=== PATIENT | male | born 1945 | race Two or more races ===

== ENCOUNTER 2017-07-29 09:42 | Inpatient (IN) | payer MEDICARE, MEDICAID ==
[2017-07-28 11:37] LABS: PARTIAL THROMBOPLASTIN TIME 30 SECONDS (22-32); PROTHROMBIN TIME 10.5 SECONDS (9.0-12.0)
[2017-07-28 11:38] LABS: ALBUMIN 3.8 G/DL (3.4-5.0); ANION GAP 12 (8-16); BLOOD UREA NITROGEN 25 MG/DL (7-18); BUN/CREATININE RATIO 20.7 (5.4-32.0); CALCIUM 8.5 MG/DL (8.5-10.1); CHLORIDE 103 MMOL/L (99-107); CREATININE 1.21 MG/DL (0.60-1.10); GLUCOSE 204 MG/DL (70-104); POTASSIUM 4.4 MMOL/L (3.5-5.1); SODIUM 137 MMOL/L (135-145); TOTAL CARBON DIOXIDE 22.5 MMOL/L (24-32); eGFR 59 ML/MIN
[2017-07-28 11:45] LABS: BASOPHILS % (AUTO) 0.4 % (0-1); EOSINOPHILS # (AUTO) 0.3 X10'3 (0-0.9); EOSINOPHILS % (AUTO) 3.6 % (0-6); HEMATOCRIT 39.3 % (42.0-52.0); HEMOGLOBIN 13.4 g/dl (14.0-17.9); LYMPHOCYTES # (AUTO) 2.3 X10'3 (1.1-4.8); LYMPHOCYTES % (AUTO) 30.9 % (21-51); MEAN CORPUSCULAR HEMOGLOBIN 32.3 PG (27.0-31.0); MEAN CORPUSCULAR HGB CONC 34.2 % (33.0-36.5); MEAN CORPUSCULAR VOLUME 94.6 FL (78-98); MEAN PLATELET VOLUME 7.6 FL (7.4-10.4); MONOCYTES # (AUTO) 0.5 X10'3 (0-0.9); MONOCYTES % (AUTO) 6.8 % (2-12); NEUTROPHILS # (AUTO) 4.4 X10'3 (1.8-7.7); NEUTROPHILS % (AUTO) 58.3 % (42-75); PLATELET COUNT 220 X10'3 (140-440); RED BLOOD COUNT 4.15 X10'6 (4.70-6.10); RED CELL DISTRIBUTION WIDTH 14.8 % (11.5-14.5); WHITE BLOOD COUNT 7.5 X10'3 (4.5-11.0)
[2017-07-29] VITALS (12 sets, daily range): BP systolic 112–200; BP diastolic 58–94
[~2017-07-29] VITALS: Ht 172.7 cm; Wt 95.0 kg
[2017-07-29] MEDS ORDERED: sod bicarbonate 150mEq in D5W 1,150 ML IV ONE (10:10)
[2017-07-29] MEDS ORDERED: LORazepam 0.5 MG tablet PO PRN (10:10)
[2017-07-29] MEDS ORDERED: diphenhydrAMINE 25mg capsule PO PRN (10:10)
[2017-07-29] MEDS ORDERED: NO HOME MEDS (10:26)
[2017-07-29] MEDS: normal saline 1000ml 1,000 ML IV SCH ×2 (11:06→14:24)
[2017-07-29] MEDS ORDERED: nitroGLYCERIN-Tridil 50MG/D5W 250 ML IV ONE (11:06)
[2017-07-29] MEDS ORDERED: heparin 1,000unit/ml 10ml vial 10 ML ONE (11:07)
[2017-07-29] MEDS ORDERED: iohexol 350MG/ML 100ml bottle IV ONE ×2 (11:07→12:31)
[2017-07-29] MEDS ORDERED: LIDOcaine 1%/PF (10mg/ml) 5ml vial ONE (11:07)
[2017-07-29] MEDS ORDERED: iohexol 350 MG/ML 50ML vial IV ONE ×4 (11:07→13:26)
[2017-07-29] MEDS ORDERED: midazolam 2 mg/2 ml injection ONE (11:39)
[2017-07-29] MEDS ORDERED: fentaNYL/PF 50MCG/1 ML 2ML syringe ONE (11:39)
[2017-07-29] MEDS ORDERED: clopidogrel 300mg tablet ONE (13:59)
[2017-07-29] MEDS ORDERED: nitroGLYCERIN-Tridil 50MG/D5W 250 ML IV PRN (14:35)
[2017-07-29] MEDS ORDERED: hydrALAZINE 20mg/ml inj. IV PRN (14:35)
[2017-07-29] MEDS ORDERED: aspirin 325mg tablet PO ONE (15:10)
[2017-07-29] MEDS ORDERED: proCHLORperazine 10 MG/2 ml inj IV PRN (15:15)
[2017-07-29] MEDS ORDERED: OXAZEpam 15mg capsule PO PRN (15:15)
[2017-07-29] MEDS ORDERED: acetaminophen 325mg tablet PO PRN (15:15)
[2017-07-29] MEDS ORDERED: cyclobenzaprine 10mg tablet PO PRN (15:15)
[2017-07-29] MEDS ORDERED: magnesium hydroxide 30ml (MOM) UD suspension PO PRN (15:15)
[2017-07-29] MEDS ORDERED: heparin 10,000 units/1 ML INJ IV PRN (15:30)
[2017-07-29] MEDS: acetylcysteine 200 MG/ml 4ml vial PO SCH ×2 (18:00→23:28)
[2017-07-29] MEDS: atorvastatin 20mg tablet PO SCH (20:28)
[2017-07-29] MEDS: docusate sod 100mg capsule PO SCH (20:29)
[2017-07-29 20:46] LABS: INR 1.1 INR; PROTHROMBIN TIME 11.8 SECONDS (9.0-12.0)
[2017-07-29 21:05] LABS: PARTIAL THROMBOPLASTIN TIME 144 SECONDS (22-32)
[2017-07-29] MEDS ORDERED: sodium bicarbonate (8.4%) 1 mEq/ml syringe ONE (22:56)
[2017-07-29] MEDS: sod bicarbonate 150mEq in D5W 1,150 ML IV SCH (23:13)
[2017-07-30] VITALS (22 sets, daily range): BP systolic 92–178; BP diastolic 54–95
[2017-07-30 01:48] LABS: BASOPHILS % (AUTO) 0.5 % (0-1); EOSINOPHILS # (AUTO) 0.3 X10'3 (0-0.9); EOSINOPHILS % (AUTO) 4.1 % (0-6); HEMATOCRIT 33.3 % (42.0-52.0); HEMOGLOBIN 11.4 g/dl (14.0-17.9); LYMPHOCYTES # (AUTO) 1.8 X10'3 (1.1-4.8); LYMPHOCYTES % (AUTO) 27.8 % (21-51); MEAN CORPUSCULAR HEMOGLOBIN 32.2 PG (27.0-31.0); MEAN CORPUSCULAR HGB CONC 34.1 % (33.0-36.5); MEAN CORPUSCULAR VOLUME 94.5 FL (78-98); MEAN PLATELET VOLUME 7.6 FL (7.4-10.4); MONOCYTES # (AUTO) 0.7 X10'3 (0-0.9); MONOCYTES % (AUTO) 11.1 % (2-12); NEUTROPHILS # (AUTO) 3.6 X10'3 (1.8-7.7); NEUTROPHILS % (AUTO) 56.5 % (42-75); PLATELET COUNT 197 X10'3 (140-440); RED BLOOD COUNT 3.52 X10'6 (4.70-6.10); RED CELL DISTRIBUTION WIDTH 14.6 % (11.5-14.5); WHITE BLOOD COUNT 6.4 X10'3 (4.5-11.0)
[2017-07-30 02:02] LABS: ANION GAP 11 (8-16); BLOOD UREA NITROGEN 19 MG/DL (7-18); BUN/CREATININE RATIO 15.8 (5.4-32.0); CHLORIDE 100 MMOL/L (99-107); CHOL/HDL RATIO 1.8 (0.00-4.99); CHOLESTEROL 101 MG/DL (0-200); GLUCOSE 250 MG/DL (70-104); HDL CHOLESTEROL 55 MG/DL (35-60); LDL CHOLESTEROL 48 MG/DL (50-100); POTASSIUM 3.6 MMOL/L (3.5-5.1); SODIUM 139 MMOL/L (135-145); TOTAL CARBON DIOXIDE 27.6 MMOL/L (24-32); TRIGLYCERIDES 79 MG/DL (20-135); eGFR 60 ML/MIN
[2017-07-30] MEDS ORDERED: LIDOcaine 1%/PF (10mg/ml) 5ml vial ONE (07:22)
[2017-07-30] MEDS ORDERED: heparin 1,000unit/ml 10ml vial 10 ML ONE (07:22)
[2017-07-30] MEDS ORDERED: midazolam 2 mg/2 ml injection ONE (07:22)
[2017-07-30] MEDS ORDERED: iohexol 350 MG/1 ML 200ml bottle ONE (07:22)
[2017-07-30] MEDS ORDERED: fentaNYL/PF 50MCG/1 ML 2ML syringe ONE (07:22)
[2017-07-30] MEDS ORDERED: nitroGLYCERIN-Tridil 50MG/D5W 250 ML IV ONE (07:23)
[2017-07-30] MEDS ORDERED: atropine 0.1mg/ml 10ml syringe ONE (07:56)
[2017-07-30] MEDS ORDERED: clopidogrel 300mg tablet ONE (08:47)
[2017-07-30] MEDS: acetylcysteine 200 MG/ml 4ml vial PO SCH ×2 (10:11→20:22)
[2017-07-30] MEDS: clopidogrel 75mg tablet PO SCH (10:11)
[2017-07-30] MEDS: aspirin 325mg tablet PO SCH (10:11)
[2017-07-30] MEDS: docusate sod 100mg capsule PO SCH ×2 (10:11→20:22)
[2017-07-30] MEDS: sod bicarbonate 150mEq in D5W 1,150 ML IV SCH (10:40)
[2017-07-30] MEDS: atorvastatin 20mg tablet PO SCH (20:22)
[2017-07-31] VITALS (12 sets, daily range): BP systolic 75–158; BP diastolic 43–80
[2017-07-31] MEDS: docusate sod 100mg capsule PO SCH (08:00)
[2017-07-31] MEDS: aspirin 325mg tablet PO SCH (08:39)
[2017-07-31] MEDS ORDERED: CLOP75TA35 PO (08:39)
[2017-07-31] MEDS: acetylcysteine 200 MG/ml 4ml vial PO SCH (08:39)
[2017-07-31] MEDS ORDERED: LISI10TA4 PO (08:39)
[2017-07-31] MEDS ORDERED: ASPI-1 PO (08:39)
[2017-07-31] MEDS ORDERED: ATOR20TA66 PO (08:39)
[2017-07-31] MEDS ORDERED: METO25TA6 PO ×2 (08:39→09:41)
[2017-07-31] MEDS: clopidogrel 75mg tablet PO SCH (08:40)
[2017-07-31] MEDS ORDERED: CLOPIDOGREL BISULFATE 300MG TAB PO ONE (08:50)
[2017-07-31] MEDS ORDERED: aspirin 325mg tablet PO ONE (08:50)
[2017-07-31] MEDS ORDERED: magnesium hydroxide 30ml (MOM) UD suspension PO PRN (08:55)
[2017-07-31] MEDS ORDERED: cyclobenzaprine 10mg tablet PO PRN (08:55)
[2017-07-31] MEDS ORDERED: acetaminophen 325mg tablet PO PRN (08:55)
[2017-07-31] MEDS ORDERED: OXAZEpam 15mg capsule PO PRN (08:55)
[2017-07-31] MEDS ORDERED: HYDROcodone/acetaminophen 10/325mg tab PO PRN ×2 (08:55)
[2017-07-31] MEDS ORDERED: clopidogrel 75mg tablet PO SCH (09:00)
[2017-07-31] MEDS ORDERED: metoprolol tartrate 25mg tablet PO SCH (09:00)
[2017-07-31] MEDS ORDERED: lisinopril 5mg tablet PO SCH (09:00)
[2017-07-31] MEDS ORDERED: sodium bicarbonate (8.4%) inj. 150 MEQ in sodium chloride 0.45% 1,000 ML IV SCH (09:30)
[2017-07-31] MEDS ORDERED: docusate sod 100mg capsule PO SCH (20:00)
[2017-08-01] MEDS ORDERED: aspirin 325mg tablet PO SCH (08:30)
== END 2017-07-31 11:39 | disposition home or self-care (01) | DRG 247 ==
LOC: SSTAY O 09:42 → CICU 2S 14:00
PROVIDERS: ADMIT Internal Medicine Cardiovascular Disease; ATTEND Internal Medicine Cardiovascular Disease
PROC: 4A023N7 Measurement of Cardiac Sampling and Pressure, Left Heart, Percutaneous Approach (ICD-10-PCS; 2017-07-29)
PROC: B2111ZZ Fluoroscopy of Multiple Coronary Arteries using Low Osmolar Contrast (ICD-10-PCS; 2017-07-29)
PROC: B2151ZZ Fluoroscopy of Left Heart using Low Osmolar Contrast (ICD-10-PCS; 2017-07-29)
PROC: 027135Z Dilation of Coronary Artery, Two Arteries with Two Drug-eluting Intraluminal Devices, Percutaneous Approach (ICD-10-PCS; 2017-07-29)
PROC: 027034Z Dilation of Coronary Artery, One Artery with Drug-eluting Intraluminal Device, Percutaneous Approach (ICD-10-PCS; principal; 2017-07-30)
DX: I25.10 Atherosclerotic heart disease of native coronary artery without angina pectoris (principal); E11.22 Type 2 diabetes mellitus with diabetic chronic kidney disease; I45.10 Unspecified right bundle-branch block; R94.39 Abnormal result of other cardiovascular function study; N18.9 Chronic kidney disease, unspecified; E78.5 Hyperlipidemia, unspecified; I12.9 Hypertensive chronic kidney disease with stage 1 through stage 4 chronic kidney disease, or unspecified chronic kidney disease; K21.9 Gastro-esophageal reflux disease without esophagitis; E55.9 Vitamin D deficiency, unspecified; I65.29 Occlusion and stenosis of unspecified carotid artery; Z60.2 Problems related to living alone; Z89.429 Acquired absence of other toe(s), unspecified side; Z79.899 Other long term (current) drug therapy
CPT/HCPCS: 93458; C9600; C9601; 36415; 80048; 80061; 85025; 85347; 85610; 85730; 93005; 99152; 99153; A4315; A4620; A6213; A6257; A6402; A6449; C1725; C1760; C1769; C1874; J0461; J1644; J2001; J2250; J3010; J3490; J7030; J7070; Q0163; Q9967

== ENCOUNTER 2019-05-16 15:54 | Inpatient (IN) | payer MEDICARE, MEDICAID, OTHER ==
[~2019-05-16] VITALS: Ht 172.7 cm; Wt 108.7 kg
[~2019-05-16 15:54] MED LIST: ASPI-1 PO; ATOR20TA66 PO; CLOP75TA35 PO; METO25TA6 PO; NO HOME MEDS; etomidate 2mg/ml inj. ONE; rocuronium bromide 100mg/10ml (10mg/ml) injection IV ONE
[2019-05-16] MEDS ORDERED: heparin 10,000 units/1 ML INJ IV PRN (16:10)
[2019-05-16 16:16] LABS: BASOPHILS # (AUTO) 0.1 X10'3 (0-0.2); BASOPHILS % (AUTO) 0.5 % (0-1); EOSINOPHILS # (AUTO) 0.2 X10'3 (0-0.9); EOSINOPHILS % (AUTO) 2.6 % (0-6); HEMATOCRIT 34.4 % (42.0-52.0); HEMOGLOBIN 11.6 g/dl (14.0-17.9); LYMPHOCYTES # (AUTO) 1.6 X10'3 (1.1-4.8); LYMPHOCYTES % (AUTO) 17.4 % (21-51); MEAN CORPUSCULAR HEMOGLOBIN 31.3 PG (27.0-31.0); MEAN CORPUSCULAR HGB CONC 33.8 g/dL (33.0-36.5); MEAN CORPUSCULAR VOLUME 92.4 FL (78-98); MEAN PLATELET VOLUME 7.5 FL (7.4-10.4); MONOCYTES # (AUTO) 1.1 X10'3 (0-0.9); MONOCYTES % (AUTO) 12.2 % (2-12); NEUTROPHILS # (AUTO) 6.3 X10'3 (1.8-7.7); NEUTROPHILS % (AUTO) 67.3 % (42-75); PLATELET COUNT 252 X10'3 (140-440); RED BLOOD COUNT 3.72 X10'6 (4.70-6.10); RED CELL DISTRIBUTION WIDTH 13.5 % (11.5-14.5); WHITE BLOOD COUNT 9.4 X10'3 (4.5-11.0)
[2019-05-16] MEDS: heparin 25,000 UNIT/250ml bag 250 ML IV SCH (16:22)
[2019-05-16 16:31] LABS: ALANINE AMINOTRANSFERASE 22 U/L (12-78); ALBUMIN 3.2 G/DL (3.4-5.0); ALBUMIN/GLOBULIN RATIO 0.8 (1.1-1.5); ALKALINE PHOSPHATASE 118 IU/L (46-116); ANION GAP 10 (8-16); ASPARTATE AMINO TRANSFERASE 35 U/L (10-37); BILIRUBIN,TOTAL 0.9 MG/DL (0.1-1.0); BLOOD UREA NITROGEN 33 MG/DL (7-18); BUN/CREATININE RATIO 17.6 (5.4-32.0); CALCIUM 8.3 MG/DL (8.5-10.1); CHLORIDE 99 MMOL/L (99-107); CREATININE 1.88 MG/DL (0.60-1.10); GLUCOSE 149 MG/DL (70-104); POTASSIUM 3.6 MMOL/L (3.5-5.1); SODIUM 132 MMOL/L (135-145); TOTAL CARBON DIOXIDE 22.9 MMOL/L (24-32); TOTAL PROTEIN 7.4 G/DL (6.4-8.2); eGFR 35 ML/MIN
[2019-05-16] MEDS ORDERED: CLOP75TA33 PO (16:31)
[2019-05-16] MEDS ORDERED: LINA5TAB4 PO (16:31)
[2019-05-16] MEDS ORDERED: GLIP10TA11 PO (16:31)
[2019-05-16] MEDS ORDERED: ASPI-611 PO (16:31)
[2019-05-16] MEDS ORDERED: ATOR20TA66 PO (16:31)
[2019-05-16] MEDS ORDERED: HYDR-4384 PO (16:31)
[2019-05-16] MEDS ORDERED: ENAL2.5T PO (16:31)
[2019-05-16 16:39] LABS: MAGNESIUM 1.7 MG/DL (1.5-2.4)
[2019-05-16] MEDS ORDERED: ondansetron/PF 4mg/2ml inj IV PRN (16:45)
[2019-05-16] MEDS ORDERED: magnesium hydroxide 30ml (MOM) UD suspension PO PRN (16:45)
[2019-05-16] MEDS ORDERED: acetaminophen 325mg tablet PO PRN ×2 (16:45)
[2019-05-16] MEDS ORDERED: dextrose 50%-water 50ml dispensing syringe IV PRN ×2 (16:45)
[2019-05-16] MEDS ORDERED: nitroGLYCERIN 0.4mg SUBLingual tab SL PRN (16:45)
[2019-05-16] MEDS ORDERED: mag hydrox/Alum hydrox/simeth 30ml oral suspension PO PRN (16:45)
[2019-05-16] MEDS ORDERED: insulin Lispro (HumaLOG) vial - multi-dose SQ SCH (16:45)
[2019-05-16] MEDS ORDERED: dextrose ORAL solution 15 GM/59 ML bottle PO PRN ×2 (16:45)
[2019-05-16] MEDS ORDERED: HYDROcodone/acetaminophen 5mg/325mg tablet PO PRN (16:45)
[2019-05-16] MEDS ORDERED: glucagon, human recombinant 1mg kit SUBCUT PRN (16:45)
[2019-05-16] MEDS ORDERED: MESSAGE TO PHARMACY PO ONE (16:45)
--- NOTE | 2019-05-16 17:00 | NUR ---
late entry; pt was in ED and Dr. Pompa was asking about a next of kin or someone to notify if something were to happen to him. pt state "I really do not want her told because she get very upset and i don't want that." he refuse to even give a name to the doctor.
[2019-05-16] MEDS ORDERED: acetylcysteine 200 MG/ml 4ml vial PO ONE (17:15)
[2019-05-16] MEDS ORDERED: sodium bicarbonate (8.4%) inj. 150 MEQ in sodium chloride 0.45% 1,000 ML IV SCH (17:15)
[2019-05-16] MEDS ORDERED: sodium bicarbonate (8.4%) inj. 75 MEQ in dextrose 5% water 500ml 500 ML IV SCH (17:22)
[2019-05-16] MEDS ORDERED: fentaNYL/PF 50MCG/1 ML 2ML syringe ONE (17:43)
[2019-05-16] MEDS ORDERED: midazolam 2 mg/2 ml injection ONE ×2 (17:43→21:40)
[2019-05-16 17:44] LABS: PARTIAL THROMBOPLASTIN TIME 65 SECONDS (22-32)
[2019-05-16] MEDS ORDERED: LIDOcaine 1% (10mg/ml)w/preservative injection 20ml MDV ONE (17:44)
[2019-05-16] MEDS ORDERED: iohexol 350 MG/1 ML 200ml bottle ONE (17:44)
[2019-05-16] MEDS ORDERED: iohexol 350 MG/ML 50ML vial IV ONE (17:44)
[2019-05-16] MEDS ORDERED: nitroGLYCERIN-Tridil 50MG/D5W 250 ML IV ONE (17:44)
[2019-05-16] MEDS ORDERED: heparin 1,000unit/ml 10ml vial 10 ML ONE (17:44)
[2019-05-16 17:58] LABS: HEMOGLOBIN A1C 11.6 % (4.5-6.2)
[2019-05-16] MEDS ORDERED: DOPamine 400mg/D5W 250ml 250 ML IV ONE (18:42)
[2019-05-16] MEDS ORDERED: atropine 0.1mg/ml 10ml syringe ONE (18:49)
[2019-05-16] MEDS ORDERED: DOBUTamine-DoBUTrex 500mg/D5W 250 ML IV ONE (18:50)
[2019-05-16] MEDS ORDERED: amiodarone 50MG/ML inj IV ONE (19:03)
[2019-05-16] MEDS ORDERED: albuterol 2.5 MG/3 ML nebule NEB PRN (19:55)
[2019-05-16] MEDS: carVEDilol 3.125mg tablet PO SCH (20:00)
--- NOTE | 2019-05-16 20:40 | NUR ---
I have received report and pt from Cath-Lab, Pt is on an IABP 1:2, IABP is to the rt groin without hematoma, pt placed on monitor, pts rit pupil is blown and nonreactive, left is pinpoint. pt does not respond to verbal stimuli or tactical stimuli, dopamine and dobutamine drip in place for cardiac support via CVL, Lira catheter placed per MD orders as well as an OG, pt tolerated both procedures well, no difficulties noted. Spoke to Lacy Marr SOFTWARE SYSTEMS ANALYST regarding pupil response and size, new orders to take pt for a CT of his head, pt placed on transport monitor, taken to CT with the assistance or 2 respitory therapist, the charge nurse, hemodialysis lab technician and myself. Ambu bag used during transport. Pt returned to room without difficulties, pt placed back on monitor, hypothermic protocol in place. Pt has intermittent stiffening of the legs and arm twitching, versed drip started, fentanyl drip in place for pain control, heparin drip in place per md orders Troponin 3.17 Lacy Marr notified no new orders at this time
[2019-05-16 20:45] VITALS: BP 97/76
[2019-05-16] MEDS ORDERED: aspirin 325mg tablet PO ONE (20:45)
[2019-05-16] MEDS ORDERED: aspirin 81mg tab.chew NG ONE (20:50)
[2019-05-16] MEDS ORDERED: clopidogrel 75mg tablet NG ONE (20:50)
[2019-05-16 21:00] VITALS: BP 94/43
[2019-05-16] MEDS: lisinopril 2.5mg tablet PO SCH (21:00)
[2019-05-16] MEDS: insulin glargine (Lantus) pen - multi-dose SQ SCH (21:00)
[2019-05-16 21:11] LABS: ABG BASE EXCESS -10.3 mmol/L (-2.0-3.0); ABG HCO3 16.8 mmol/L (22.0-26.0); ABG OXYGEN SATURATION 94.6 % (95-98); ABG PH (T) 7.229 (7.350-7.450); ABG PO2 (T) 82.1 mmHg (83-108); ALLEN'S TEST Positive; FCOHb 0.3 % (0.5-1.5); FMetHb 0.3 % (0.3-1.12); MINUTE VOLUME 8 L/min; PATIENT TEMPERATURE 36.6; PEEP 5 cm H2O; RESPIRATORY RATE 16 b/min; RESPIRATORY RATE (OBSERVED) 16 b/min; TIDAL VOLUME 450 mL; TOTAL HEMOGLOBIN 12.8 G/dl (14.0-17.9)
[2019-05-16 21:30] VITALS: BP 102/86
[2019-05-16] MEDS: DOPamine 400MG/D5W 250ML CRITICAL CARE IV SCH (21:31)
[2019-05-16] MEDS: DOBUTamine 2000 MCG/250ML BAG IV SCH (21:31)
[2019-05-16 22:15] VITALS: BP 92/46
[2019-05-16] MEDS ORDERED: magnesium 4gm in 100ml NS 100 ML IV PRN (22:30)
[2019-05-16] MEDS ORDERED: sodium phosphate inj. 30 MMOL in dextrose 5%-water 250 ML IV PRN (22:30)
[2019-05-16] MEDS ORDERED: potassium Cl 20mEq/100mL bag 100 ML IV PRN (22:30)
[2019-05-16] MEDS ORDERED: sodium phosphate inj. 15 MMOL in dextrose 5%-water 150 ML IV PRN (22:30)
[2019-05-16] MEDS ORDERED: magnesium 2GM in 50ml NS 50 ML IV PRN (22:30)
[2019-05-16] MEDS: midazolam 100mg in NS 100ml 100 ML IV PRN (22:48)
[2019-05-16] MEDS: FENTANYL-0.9 % NACL/PF 100 ML IV PRN (22:49)
[2019-05-16 23:00] VITALS: BP 90/46
[2019-05-16 23:22] LABS: BASOPHILS # (AUTO) 0.1 X10'3 (0-0.2); BASOPHILS % (AUTO) 0.6 % (0-1); EOSINOPHILS # (AUTO) 0.1 X10'3 (0-0.9); EOSINOPHILS % (AUTO) 0.3 % (0-6); HEMATOCRIT 33.1 % (42.0-52.0); HEMOGLOBIN 11.2 g/dl (14.0-17.9); LYMPHOCYTES # (AUTO) 1.2 X10'3 (1.1-4.8); MEAN CORPUSCULAR HEMOGLOBIN 31.3 PG (27.0-31.0); MEAN CORPUSCULAR HGB CONC 33.9 g/dL (33.0-36.5); MEAN CORPUSCULAR VOLUME 92.2 FL (78-98); MEAN PLATELET VOLUME 7.8 FL (7.4-10.4); MONOCYTES # (AUTO) 1.4 X10'3 (0-0.9); MONOCYTES % (AUTO) 9.2 % (2-12); NEUTROPHILS # (AUTO) 12.1 X10'3 (1.8-7.7); NEUTROPHILS % (AUTO) 81.9 % (42-75); PLATELET COUNT 249 X10'3 (140-440); RED BLOOD COUNT 3.59 X10'6 (4.70-6.10); RED CELL DISTRIBUTION WIDTH 13.6 % (11.5-14.5); WHITE BLOOD COUNT 14.7 X10'3 (4.5-11.0)
[2019-05-16 23:35] LABS: ALANINE AMINOTRANSFERASE 32 U/L (12-78); ALBUMIN 2.7 G/DL (3.4-5.0); ALBUMIN/GLOBULIN RATIO 0.7 (1.1-1.5); ALKALINE PHOSPHATASE 112 IU/L (46-116); ANION GAP 13 (8-16); ASPARTATE AMINO TRANSFERASE 53 U/L (10-37); BILIRUBIN,TOTAL 1.2 MG/DL (0.1-1.0); BLOOD UREA NITROGEN 31 MG/DL (7-18); BUN/CREATININE RATIO 18.3 (5.4-32.0); CALCIUM 7.6 MG/DL (8.5-10.1); CHLORIDE 98 MMOL/L (99-107); CREATININE 1.69 MG/DL (0.60-1.10); GLUCOSE 317 MG/DL (70-104); POTASSIUM 4.2 MMOL/L (3.5-5.1); SODIUM 131 MMOL/L (135-145); TOTAL CARBON DIOXIDE 20.3 MMOL/L (24-32); TOTAL PROTEIN 6.6 G/DL (6.4-8.2); eGFR 40 ML/MIN
[2019-05-16 23:39] LABS: MAGNESIUM 1.6 MG/DL (1.5-2.4); PHOSPHORUS 4.4 MG/DL (2.3-4.5)
[2019-05-16 23:40] LABS: TROPONIN I 3.17 NG/ML (0.0-0.05)
[2019-05-16] MEDS: ipratropium/albuterol 3ml nebule NEB SCH (23:57)
[2019-05-17] VITALS (24 sets, daily range): BP systolic 79–98; BP diastolic 40–68
[2019-05-17] MEDS: DOPamine 400MG/D5W 250ML CRITICAL CARE IV SCH (00:31)
[2019-05-17 02:59] LABS: BASOPHILS % (AUTO) 0.2 % (0-1); EOSINOPHILS % (AUTO) 0.1 % (0-6); HEMATOCRIT 32.4 % (42.0-52.0); HEMOGLOBIN 10.9 g/dl (14.0-17.9); LYMPHOCYTES # (AUTO) 0.9 X10'3 (1.1-4.8); LYMPHOCYTES % (AUTO) 6.1 % (21-51); MEAN CORPUSCULAR HEMOGLOBIN 31.3 PG (27.0-31.0); MEAN CORPUSCULAR HGB CONC 33.7 g/dL (33.0-36.5); MEAN PLATELET VOLUME 7.7 FL (7.4-10.4); MONOCYTES # (AUTO) 1.4 X10'3 (0-0.9); MONOCYTES % (AUTO) 9.3 % (2-12); NEUTROPHILS # (AUTO) 13.1 X10'3 (1.8-7.7); NEUTROPHILS % (AUTO) 84.3 % (42-75); PLATELET COUNT 218 X10'3 (140-440); RED BLOOD COUNT 3.48 X10'6 (4.70-6.10); RED CELL DISTRIBUTION WIDTH 13.2 % (11.5-14.5); WHITE BLOOD COUNT 15.6 X10'3 (4.5-11.0)
[2019-05-17 03:06] LABS: ALANINE AMINOTRANSFERASE 29 U/L (12-78); ALBUMIN 2.5 G/DL (3.4-5.0); ALBUMIN/GLOBULIN RATIO 0.7 (1.1-1.5); ALKALINE PHOSPHATASE 102 IU/L (46-116); ANION GAP 11 (8-16); ASPARTATE AMINO TRANSFERASE 64 U/L (10-37); BILIRUBIN,TOTAL 1.3 MG/DL (0.1-1.0); BLOOD UREA NITROGEN 30 MG/DL (7-18); BUN/CREATININE RATIO 18.3 (5.4-32.0); CALCIUM 7.6 MG/DL (8.5-10.1); CHLORIDE 98 MMOL/L (99-107); CHOLESTEROL 83 MG/DL (0-200); CREATININE 1.64 MG/DL (0.60-1.10); GLUCOSE 360 MG/DL (70-104); HDL CHOLESTEROL 42 MG/DL (35-60); LDL CHOLESTEROL 35 MG/DL (50-100); MAGNESIUM 1.5 MG/DL (1.5-2.4); PHOSPHORUS 3.5 MG/DL (2.3-4.5); POTASSIUM 3.6 MMOL/L (3.5-5.1); SODIUM 130 MMOL/L (135-145); TOTAL CARBON DIOXIDE 21.1 MMOL/L (24-32); TOTAL PROTEIN 6.2 G/DL (6.4-8.2); TRIGLYCERIDES 53 MG/DL (20-135); eGFR 41 ML/MIN
[2019-05-17] MEDS: ipratropium/albuterol 3ml nebule NEB SCH ×9 (03:17→23:00)
[2019-05-17] MEDS: midazolam 100mg in NS 100ml 100 ML IV PRN (04:23)
[2019-05-17 04:25] LABS: OXYGEN SATURATION (MIXED VEN) 74.2 % (60-80)
[2019-05-17 04:45] LABS: ABG BASE EXCESS -9.4 mmol/L (-2.0-3.0); ABG HCO3 16.5 mmol/L (22.0-26.0); ABG OXYGEN SATURATION 98.6 % (95-98); ABG PCO2 (T) 30.3 mmHg (35.0-45.0); ABG PH (T) 7.335 (7.350-7.450); ABG PO2 (T) 119.9 mmHg (83-108); FMetHb 0.2 % (0.3-1.12); FO2Hb 98.4 % (94-100); MINUTE VOLUME 9 L/min; PEEP 8 cm H2O; RESPIRATORY RATE 18 b/min; RESPIRATORY RATE (OBSERVED) 18 b/min; TIDAL VOLUME 450 mL; TOTAL HEMOGLOBIN 11.8 G/dl (14.0-17.9)
--- NOTE | 2019-05-17 05:49 | NUR ---
pt still is not following commands, he does do reflex hand grasp bilat when running a pen down the palm of his hand he does close it, he does not track with his eyes or move extremities when spoken to
[2019-05-17] MEDS: DOBUTamine 2000 MCG/250ML BAG IV SCH ×3 (05:52→23:46)
--- NOTE | 2019-05-17 06:24 | NUR ---
report given rec rn plan of care reviewed
[2019-05-17] MEDS ORDERED: dextrose 50%-water 50ml dispensing syringe IV PRN (06:35)
[2019-05-17 07:26] LABS: BASOPHILS % (AUTO) 0.2 % (0-1); EOSINOPHILS % (AUTO) 0 % (0-6); HEMATOCRIT 30.7 % (42.0-52.0); HEMOGLOBIN 10.2 g/dl (14.0-17.9); LYMPHOCYTES # (AUTO) 0.6 X10'3 (1.1-4.8); LYMPHOCYTES % (AUTO) 4.8 % (21-51); MEAN CORPUSCULAR HGB CONC 33.1 g/dL (33.0-36.5); MEAN CORPUSCULAR VOLUME 93.5 FL (78-98); MEAN PLATELET VOLUME 8.3 FL (7.4-10.4); MONOCYTES # (AUTO) 1.2 X10'3 (0-0.9); NEUTROPHILS # (AUTO) 11.6 X10'3 (1.8-7.7); PLATELET COUNT 182 X10'3 (140-440); RED BLOOD COUNT 3.28 X10'6 (4.70-6.10); RED CELL DISTRIBUTION WIDTH 13.7 % (11.5-14.5); WHITE BLOOD COUNT 13.5 X10'3 (4.5-11.0)
[2019-05-17] MEDS: aspirin 81mg tab.chew NG SCH (07:45)
[2019-05-17] MEDS: pantoprazole 40 MG vial IV SCH (07:45)
[2019-05-17] MEDS: carVEDilol 3.125mg tablet PO SCH ×2 (07:46→20:00)
[2019-05-17] MEDS: clopidogrel 75mg tablet NG SCH (07:46)
[2019-05-17] MEDS: atorvastatin 20mg tablet PO SCH (07:46)
[2019-05-17] MEDS ORDERED: clopidogrel 75mg tablet PO SCH (08:00)
[2019-05-17 08:17] LABS: ALBUMIN 2.3 G/DL (3.4-5.0); ANION GAP 13 (8-16); BLOOD UREA NITROGEN 29 MG/DL (7-18); BUN/CREATININE RATIO 18.1 (5.4-32.0); CALCIUM 7.5 MG/DL (8.5-10.1); CHLORIDE 100 MMOL/L (99-107); GLUCOSE 346 MG/DL (70-104); MAGNESIUM 1.5 MG/DL (1.5-2.4); SODIUM 133 MMOL/L (135-145); TOTAL CARBON DIOXIDE 20.1 MMOL/L (24-32); eGFR 43 ML/MIN
[2019-05-17 08:25] LABS: POTASSIUM 2.9 MMOL/L (3.5-5.1)
[2019-05-17 08:26] LABS: PARTIAL THROMBOPLASTIN TIME 92 SECONDS (22-32)
[2019-05-17] MEDS ORDERED: propofol 1000mg/100ml bottle 100 ML IV ONE ×2 (08:31→16:40)
[2019-05-17] MEDS: potassium Cl 20mEq/100mL bag 100 ML IV PRN ×4 (08:44→11:51)
[2019-05-17] MEDS: insulin regular, human 100 UNIT in normal saline 100ml IV soln 99 ML IV SCH ×4 (09:00→21:09)
--- NOTE | 2019-05-17 09:39 | NUR ---
dr charles called and updated (decreased dobutamine, current hemodynamics, and echo in progress). dr qureshi here placed cl in r fem. received insulin gtt k 2.9 replacing (holding off on starting insulin gtt until 1st 20 meq kcl given)
[2019-05-17] MEDS ORDERED: pneumococcal 23-VAL P-sac vacc 25 mcg/0.5ml vial IMVAC ONE (10:00)
[2019-05-17 10:25] LABS: ABG BASE EXCESS -7.9 mmol/L (-2.0-3.0); ABG HCO3 17.5 mmol/L (22.0-26.0); ABG OXYGEN SATURATION 96.4 % (95-98); ABG PCO2 (T) 35.6 mmHg (35.0-45.0); ABG PO2 (T) 85.4 mmHg (83-108); FCOHb 0.3 % (0.5-1.5); FMetHb 0.3 % (0.3-1.12); FO2Hb 95.8 % (94-100); MINUTE VOLUME 9 L/min; PEEP 8 cm H2O; RESPIRATORY RATE 18 b/min; TIDAL VOLUME 450 mL; TOTAL HEMOGLOBIN 11.7 G/dl (14.0-17.9)
--- NOTE | 2019-05-17 10:34 | NUR ---
pt has no next of kin listed, discussed with Gail nursing postal supervisor. she stated that pt refused to give next of kin,/ emergency contact information that he stated that "he didn't want her to worry." Discussed in critical care rounds and employment evaluator/case manager Sri will follow up.
[2019-05-17 10:41] LABS: OXYGEN SATURATION (MIXED VEN) 68.8 % (60-80); PO2 MIXED VENOUS (TEMP COR) 33.8 mmHg (35-46)
[2019-05-17] MEDS ORDERED: NORepinephrine 8mg/ 250ml NS 250 ML IV ONE ×2 (11:23→19:17)
--- NOTE | 2019-05-17 12:15 | NUR ---
Initial: Pt transfer from [place] with STEMI, pt had chest pain and shortness of breath, in pathology laboratory aides teacher he coded and went into respiratory arrest and was subsequently intubated. Currently on hypothermic protocol. NPO for now. When rewarmed and still intubated would benefit from tube feeding to meet nutrition needs on vent. He has a A1c of 11.6 and 300 mg/dl BG on arrival, will need written DM education handout with verbal review and referral to outpatient DM education class when extubated and alert. Will continue to follow. Recommend: 1. When rewarmed, IF to provide tube feeding to meet nutrition needs on vent recommend Vital High Protein at 70 ml/hr to provide total volume of 1680 ml, 1680 cals, 147 g protein and 1411 ml water. 2. IF TF, prealbumin q Thursday and , daily weights, no water flush with low sodium 3. When extubated and alert needs written and verbal DM education, A1c is 11.6 Addendum: 05/17/19 at [address] Amended: Links added.
[2019-05-17] MEDS: cefepime 1GM in D5W 50mL IVPB IV SCH (12:21)
[2019-05-17] MEDS: VANCOmycin 1250MG/NS 250ml Bag 250 ML IV SCH (13:00)
--- NOTE | 2019-05-17 13:14 | NUR ---
dr charles here would prefer to keep dobutamine up to 5mcg may wean dopamine and may use levophed for low bp/low svr
[2019-05-17 13:24] LABS: POTASSIUM 4.3 MMOL/L (3.5-5.1)
[2019-05-17] MEDS: FENTANYL-0.9 % NACL/PF 100 ML IV PRN (13:37)
[2019-05-17 13:51] LABS: ALBUMIN 2.3 G/DL (3.4-5.0); ANION GAP 12 (8-16); BLOOD UREA NITROGEN 28 MG/DL (7-18); BUN/CREATININE RATIO 16.4 (5.4-32.0); CALCIUM 7.4 MG/DL (8.5-10.1); CHLORIDE 100 MMOL/L (99-107); CREATININE 1.71 MG/DL (0.60-1.10); GLUCOSE 371 MG/DL (70-104); MAGNESIUM 1.5 MG/DL (1.5-2.4); SODIUM 130 MMOL/L (135-145); TOTAL CARBON DIOXIDE 18.5 MMOL/L (24-32); eGFR 39 ML/MIN
[2019-05-17 13:57] LABS: TROPONIN I 12.85 NG/ML (0.0-0.05)
[2019-05-17 14:25] LABS: OXYGEN SATURATION (MIXED VEN) 75.4 % (60-80); PO2 MIXED VENOUS (TEMP COR) 39.3 mmHg (35-46)
--- NOTE | 2019-05-17 14:39 | NUR ---
ectopy noted when dobutamine increase back to 5mcg, weaned of dopamine, levophed started for low svr/low bp. continue to have frequent pvcs. dobutamine turned to 4 mcg and slow ectopy resolved. mixed svo2 draw from pa distal port svo2 75
--- NOTE | 2019-05-17 16:52 | NUR ---
Pt's wallet sent to safe with coding clerks supervisor.
[2019-05-17] MEDS: heparin 25,000 UNIT/250ml bag 250 ML IV SCH (17:08)
--- NOTE | 2019-05-17 18:58 | NUR ---
1829..Patient in room ICU 2038. I have received report from Janice MORALES and had the opportunity to ask questions and assume patient care. All vasoactive drugs infusing via iv pumps to central lines.
[2019-05-17] MEDS: NORepinephrine 8mg/ 250ml NS 250 ML IV SCH (19:59)
[2019-05-17] MEDS: mineral oil/petrolatum ophthal oint EACHEYE SCH (19:59)
--- NOTE | 2019-05-17 20:26 | NUR ---
2000..Assessment as noted.
[2019-05-17] MEDS: insulin glargine (Lantus) pen - multi-dose SQ SCH (21:00)
[2019-05-17] MEDS: lisinopril 2.5mg tablet PO SCH (21:00)
[2019-05-18] VITALS (24 sets, daily range): BP systolic 72–94; BP diastolic 35–45
[2019-05-18] MEDS: FENTANYL-0.9 % NACL/PF 100 ML IV PRN ×3 (00:15→19:23)
--- NOTE | 2019-05-18 01:22 | NUR ---
0000..No changes noted, continues to rest quietly.
--- NOTE | 2019-05-18 01:23 | NUR ---
0100..Hypothermia phase complete, pt rewarming initiated by [facility] Sridevi, no other changes noted.
[2019-05-18] MEDS: DOPamine 400MG/D5W 250ML CRITICAL CARE IV SCH (01:33)
[2019-05-18] MEDS: mineral oil/petrolatum ophthal oint EACHEYE SCH ×4 (02:00→19:40)
[2019-05-18] MEDS ORDERED: propofol 1000mg/100ml bottle 100 ML IV ONE (02:15)
[2019-05-18 02:27] LABS: BASOPHILS % (AUTO) 0.4 % (0-1); EOSINOPHILS # (AUTO) 0.1 X10'3 (0-0.9); EOSINOPHILS % (AUTO) 0.9 % (0-6); HEMATOCRIT 28.1 % (42.0-52.0); HEMOGLOBIN 9.7 g/dl (14.0-17.9); LYMPHOCYTES # (AUTO) 1.3 X10'3 (1.1-4.8); LYMPHOCYTES % (AUTO) 10.8 % (21-51); MEAN CORPUSCULAR HEMOGLOBIN 31.8 PG (27.0-31.0); MEAN CORPUSCULAR HGB CONC 34.5 g/dL (33.0-36.5); MEAN CORPUSCULAR VOLUME 92.3 FL (78-98); MEAN PLATELET VOLUME 7.8 FL (7.4-10.4); MONOCYTES # (AUTO) 1.4 X10'3 (0-0.9); MONOCYTES % (AUTO) 11.1 % (2-12); NEUTROPHILS # (AUTO) 9.6 X10'3 (1.8-7.7); NEUTROPHILS % (AUTO) 76.8 % (42-75); PLATELET COUNT 210 X10'3 (140-440); RED BLOOD COUNT 3.05 X10'6 (4.70-6.10); RED CELL DISTRIBUTION WIDTH 13.5 % (11.5-14.5); WHITE BLOOD COUNT 12.4 X10'3 (4.5-11.0)
[2019-05-18] MEDS: propofol 1000mg/100ml bottle 100 ML IV SCH ×3 (02:28→19:22)
[2019-05-18 02:34] LABS: PARTIAL THROMBOPLASTIN TIME 40 SECONDS (22-32)
[2019-05-18 02:52] LABS: ALANINE AMINOTRANSFERASE 27 U/L (12-78); ALBUMIN 2.1 G/DL (3.4-5.0); ALBUMIN/GLOBULIN RATIO 0.6 (1.1-1.5); ALKALINE PHOSPHATASE 80 IU/L (46-116); ANION GAP 12 (8-16); ASPARTATE AMINO TRANSFERASE 59 U/L (10-37); BILIRUBIN,TOTAL 1.1 MG/DL (0.1-1.0); BLOOD UREA NITROGEN 27 MG/DL (7-18); BUN/CREATININE RATIO 17.2 (5.4-32.0); CALCIUM 7.5 MG/DL (8.5-10.1); CHLORIDE 105 MMOL/L (99-107); CKMB RELATIVE INDEX 10.3 RATIO (0-2.5); CREATINE KINASE 254 U/L (39-308); CREATININE 1.57 MG/DL (0.60-1.10); GLUCOSE 117 MG/DL (70-104); MAGNESIUM 1.4 MG/DL (1.5-2.4); PHOSPHORUS 2.9 MG/DL (2.3-4.5); POTASSIUM 3.1 MMOL/L (3.5-5.1); SODIUM 136 MMOL/L (135-145); TOTAL PROTEIN 5.6 G/DL (6.4-8.2); eGFR 44 ML/MIN
[2019-05-18 02:54] LABS: TROPONIN I 8.24 NG/ML (0.0-0.05)
[2019-05-18] MEDS: ipratropium/albuterol 3ml nebule NEB SCH ×5 (03:11→23:34)
[2019-05-18] MEDS: NORepinephrine 8mg/ 250ml NS 250 ML IV SCH ×4 (03:36→19:21)
[2019-05-18 03:41] LABS: OXYGEN SATURATION (MIXED VEN) 80.3 % (60-80); PO2 MIXED VENOUS (TEMP COR) 33.7 mmHg (35-46)
[2019-05-18 03:56] LABS: ABG BASE EXCESS -8.4 mmol/L (-2.0-3.0); ABG HCO3 16.8 mmol/L (22.0-26.0); ABG OXYGEN SATURATION 98.9 % (95-98); ABG PCO2 (T) 28.6 mmHg (35.0-45.0); ABG PO2 (T) 138.5 mmHg (83-108); FCOHb 0.3 % (0.5-1.5); FMetHb 0.1 % (0.3-1.12); FO2Hb 98.5 % (94-100); MINUTE VOLUME 8 L/min; PATIENT TEMPERATURE 33.5; PEEP 8 cm H2O; RESPIRATORY RATE 18 b/min; RESPIRATORY RATE (OBSERVED) 18 b/min; TIDAL VOLUME 450 mL; TOTAL HEMOGLOBIN 10.7 G/dl (14.0-17.9)
--- NOTE | 2019-05-18 04:29 | NUR ---
0400..Continues to rewarm, no other changes noted.
--- NOTE | 2019-05-18 05:44 | NUR ---
0500..Critical care PLASTIC SHEETING CUTTER notified of marginal urine output, no orders at this time. Pt also noted to be slightly posturing, with arms pulling to the core. rewarming continues, no other changes noted.
--- NOTE | 2019-05-18 06:15 | NUR ---
Patient in room ICU 2038. I have received report from hotel night auditor and had the opportunity to ask questions and assume patient care.
--- NOTE | 2019-05-18 06:20 | NUR ---
0620..Problems reprioritized. Patient report given, questions answered & plan of care reviewed with Salomón MORALES.
[2019-05-18] MEDS: pantoprazole 40 MG vial IV SCH (07:32)
[2019-05-18] MEDS: clopidogrel 75mg tablet NG SCH (07:32)
[2019-05-18] MEDS: cefepime 1GM in D5W 50mL IVPB IV SCH (07:32)
[2019-05-18] MEDS: atorvastatin 20mg tablet PO SCH (07:33)
[2019-05-18] MEDS: aspirin 81mg tab.chew NG SCH (07:33)
[2019-05-18] MEDS: carVEDilol 3.125mg tablet PO SCH ×2 (07:35→19:44)
[2019-05-18] MEDS ORDERED: pneumococcal 23-VAL P-sac vacc 25 mcg/0.5ml vial IMVAC ONE (10:00)
[2019-05-18 10:56] LABS: ANION GAP 10 (8-16); BLOOD UREA NITROGEN 26 MG/DL (7-18); BUN/CREATININE RATIO 14.5 (5.4-32.0); CALCIUM 7.2 MG/DL (8.5-10.1); CHLORIDE 105 MMOL/L (99-107); CREATININE 1.79 MG/DL (0.60-1.10); GLUCOSE 130 MG/DL (70-104); MAGNESIUM 1.3 MG/DL (1.5-2.4); POTASSIUM 3.9 MMOL/L (3.5-5.1); SODIUM 136 MMOL/L (135-145); TOTAL CARBON DIOXIDE 21.4 MMOL/L (24-32); eGFR 37 ML/MIN
[2019-05-18] MEDS: DOBUTamine 2000 MCG/250ML BAG IV SCH ×2 (11:40→17:28)
[2019-05-18] MEDS: heparin 25,000 UNIT/250ml bag 250 ML IV SCH (11:40)
[2019-05-18] MEDS: VANCOmycin 1250MG/NS 250ml Bag 250 ML IV SCH (12:23)
[2019-05-18 12:26] LABS: PO2 MIXED VENOUS (TEMP COR) 36.4 mmHg (35-46)
[2019-05-18 12:36] LABS: ABG BASE EXCESS -9.3 mmol/L (-2.0-3.0); ABG HCO3 15.5 mmol/L (22.0-26.0); ABG OXYGEN SATURATION 97.4 % (95-98); ABG PCO2 (T) 28.2 mmHg (35.0-45.0); ABG PO2 (T) 93.1 mmHg (83-108); ALLEN'S TEST Positive; FCOHb 0.3 % (0.5-1.5); FO2Hb 97.1 % (94-100); MINUTE VOLUME 6 L/min; PATIENT TEMPERATURE 35.6; RESPIRATORY RATE 18 b/min; RESPIRATORY RATE (OBSERVED) 21 b/min; TIDAL VOLUME 450 mL; TOTAL HEMOGLOBIN 10.3 G/dl (14.0-17.9)
[2019-05-18 16:20] LABS: OXYGEN SATURATION (MIXED VEN) 71.7 % (60-80); PO2 MIXED VENOUS (TEMP COR) 33.1 mmHg (35-46)
[2019-05-18 16:21] LABS: ABG BASE EXCESS -8.6 mmol/L (-2.0-3.0); ABG HCO3 16.7 mmol/L (22.0-26.0); ABG OXYGEN SATURATION 98.2 % (95-98); ABG PCO2 (T) 32.5 mmHg (35.0-45.0); ABG PH (T) 7.323 (7.350-7.450); ABG PO2 (T) 105.5 mmHg (83-108); ALLEN'S TEST Positive; FCOHb 0.5 % (0.5-1.5); FMetHb 0.2 % (0.3-1.12); FO2Hb 97.5 % (94-100); MINUTE VOLUME 9 L/min; PEEP 8 cm H2O; RESPIRATORY RATE 18 b/min; RESPIRATORY RATE (OBSERVED) 19 b/min; TIDAL VOLUME 450 mL; TOTAL HEMOGLOBIN 13.6 G/dl (14.0-17.9)
[2019-05-18 16:49] LABS: ANION GAP 14 (8-16); BLOOD UREA NITROGEN 27 MG/DL (7-18); BUN/CREATININE RATIO 14.2 (5.4-32.0); CALCIUM 6.9 MG/DL (8.5-10.1); CHLORIDE 105 MMOL/L (99-107); GLUCOSE 121 MG/DL (70-104); MAGNESIUM 1.7 MG/DL (1.5-2.4); POTASSIUM 4.3 MMOL/L (3.5-5.1); SODIUM 137 MMOL/L (135-145); TOTAL CARBON DIOXIDE 18.3 MMOL/L (24-32); eGFR 35 ML/MIN
[2019-05-18] MEDS: normal saline 1000ml 1,000 ML IV SCH (17:30)
--- NOTE | 2019-05-18 18:06 | NUR ---
Problems reprioritized. Patient report given, questions answered & plan of care reviewed with oncoming shift.
--- NOTE | 2019-05-18 18:48 | NUR ---
184..Patient in room ICU 2038. I have received report from Salomón MORALES and had the opportunity to ask questions and assume patient care.
[2019-05-18] MEDS: lactobacillus rhamnosus 10,000 MMU CELLS/CAPSULE PO SCH (19:20)
[2019-05-18] MEDS: lisinopril 2.5mg tablet PO SCH (19:44)
[2019-05-18] MEDS: insulin glargine (Lantus) pen - multi-dose SQ SCH (19:45)
--- NOTE | 2019-05-18 20:31 | NUR ---
2000..Assessment as noted, all ivs infusing via pumps.
--- NOTE | 2019-05-18 21:18 | NUR ---
2100..Pt awake, eyes open, looking around room, moves all extremities, does not follow commands. Diprivan bolus given with good effect.
--- NOTE | 2019-05-18 22:24 | NUR ---
2100..Critical care SPECIAL EDUCATION BUS DRIVER notified of urine output, no orders at this time.
[2019-05-18 23:47] LABS: ALBUMIN 2.1 G/DL (3.4-5.0); ANION GAP 10 (8-16); BLOOD UREA NITROGEN 29 MG/DL (7-18); BUN/CREATININE RATIO 13.1 (5.4-32.0); CALCIUM 6.9 MG/DL (8.5-10.1); CHLORIDE 105 MMOL/L (99-107); CREATININE 2.22 MG/DL (0.60-1.10); GLUCOSE 147 MG/DL (70-104); MAGNESIUM 1.6 MG/DL (1.5-2.4); POTASSIUM 4.8 MMOL/L (3.5-5.1); SODIUM 135 MMOL/L (135-145); TOTAL CARBON DIOXIDE 20.4 MMOL/L (24-32); eGFR 29 ML/MIN
[2019-05-19] VITALS (24 sets, daily range): BP systolic 74–98; BP diastolic 30–56
--- NOTE | 2019-05-19 00:33 | NUR ---
0000..Resting quietly, no changes noted.
[2019-05-19] MEDS: insulin regular, human 100 UNIT in normal saline 100ml IV soln 99 ML IV SCH ×4 (01:29→23:19)
[2019-05-19] MEDS: mineral oil/petrolatum ophthal oint EACHEYE SCH ×4 (02:36→19:29)
[2019-05-19] MEDS: DOBUTamine 2000 MCG/250ML BAG IV SCH ×3 (02:37→19:31)
[2019-05-19] MEDS: propofol 1000mg/100ml bottle 100 ML IV SCH ×2 (02:37→12:39)
[2019-05-19] MEDS: NORepinephrine 8mg/ 250ml NS 250 ML IV SCH ×3 (02:38→14:59)
[2019-05-19 03:26] LABS: OXYGEN SATURATION (MIXED VEN) 69.7 % (60-80); PO2 MIXED VENOUS (TEMP COR) 36.3 mmHg (35-46)
[2019-05-19] MEDS: ipratropium/albuterol 3ml nebule NEB SCH ×6 (03:29→23:03)
[2019-05-19 03:31] LABS: ABG BASE EXCESS -8.4 mmol/L (-2.0-3.0); ABG HCO3 16.3 mmol/L (22.0-26.0); ABG OXYGEN SATURATION 98.3 % (95-98); ABG PCO2 (T) 31.5 mmHg (35.0-45.0); ABG PH (T) 7.335 (7.350-7.450); ABG PO2 (T) 129.8 mmHg (83-108); FCOHb 0.3 % (0.5-1.5); FMetHb 0.1 % (0.3-1.12); FO2Hb 97.9 % (94-100); MINUTE VOLUME 9 L/min; PATIENT TEMPERATURE 37.8; PEEP 8 cm H2O; RESPIRATORY RATE 18 b/min; RESPIRATORY RATE (OBSERVED) 18 b/min; TIDAL VOLUME 450 mL; TOTAL HEMOGLOBIN 9.3 G/dl (14.0-17.9)
[2019-05-19 04:20] LABS: BASOPHILS % (AUTO) 0.2 % (0-1); EOSINOPHILS % (AUTO) 0.3 % (0-6); HEMATOCRIT 24.6 % (42.0-52.0); HEMOGLOBIN 8.3 g/dl (14.0-17.9); LYMPHOCYTES # (AUTO) 1.4 X10'3 (1.1-4.8); LYMPHOCYTES % (AUTO) 8.8 % (21-51); MEAN CORPUSCULAR HEMOGLOBIN 31.3 PG (27.0-31.0); MEAN CORPUSCULAR HGB CONC 33.9 g/dL (33.0-36.5); MEAN CORPUSCULAR VOLUME 92.2 FL (78-98); MEAN PLATELET VOLUME 7.8 FL (7.4-10.4); MONOCYTES # (AUTO) 1.8 X10'3 (0-0.9); MONOCYTES % (AUTO) 10.6 % (2-12); NEUTROPHILS # (AUTO) 13.2 X10'3 (1.8-7.7); NEUTROPHILS % (AUTO) 80.1 % (42-75); PLATELET COUNT 194 X10'3 (140-440); RED BLOOD COUNT 2.67 X10'6 (4.70-6.10); RED CELL DISTRIBUTION WIDTH 13.8 % (11.5-14.5); WHITE BLOOD COUNT 16.4 X10'3 (4.5-11.0)
[2019-05-19 04:31] LABS: PARTIAL THROMBOPLASTIN TIME 47 SECONDS (22-32)
[2019-05-19 04:34] LABS: ALANINE AMINOTRANSFERASE 20 U/L (12-78); ALBUMIN 1.9 G/DL (3.4-5.0); ALBUMIN/GLOBULIN RATIO 0.6 (1.1-1.5); ALKALINE PHOSPHATASE 85 IU/L (46-116); ANION GAP 12 (8-16); ASPARTATE AMINO TRANSFERASE 50 U/L (10-37); BILIRUBIN,TOTAL 1.5 MG/DL (0.1-1.0); BLOOD UREA NITROGEN 31 MG/DL (7-18); CALCIUM 6.8 MG/DL (8.5-10.1); CHLORIDE 102 MMOL/L (99-107); CREATININE 2.38 MG/DL (0.60-1.10); GLUCOSE 163 MG/DL (70-104); MAGNESIUM 1.7 MG/DL (1.5-2.4); PHOSPHORUS 3.8 MG/DL (2.3-4.5); POTASSIUM 4.7 MMOL/L (3.5-5.1); SODIUM 134 MMOL/L (135-145); TOTAL CARBON DIOXIDE 19.7 MMOL/L (24-32); TOTAL PROTEIN 5.3 G/DL (6.4-8.2); TRIGLYCERIDES 148 MG/DL (20-135); eGFR 27 ML/MIN
--- NOTE | 2019-05-19 04:47 | NUR ---
0400..No changes noted.
--- NOTE | 2019-05-19 06:15 | NUR ---
Patient in room ICU 2038. I have received report from production shift supervisor and had the opportunity to ask questions and assume patient care.
--- NOTE | 2019-05-19 06:24 | NUR ---
0620..Problems reprioritized. Patient report given, questions answered & plan of care reviewed with Salomón MORALES.
[2019-05-19] MEDS: pantoprazole 40 MG vial IV SCH (07:37)
[2019-05-19] MEDS: lactobacillus rhamnosus 10,000 MMU CELLS/CAPSULE PO SCH ×2 (07:37→19:30)
[2019-05-19] MEDS: aspirin 81mg tab.chew NG SCH (07:37)
[2019-05-19] MEDS: cefepime 1GM in D5W 50mL IVPB IV SCH (07:37)
[2019-05-19] MEDS: atorvastatin 20mg tablet PO SCH (07:37)
[2019-05-19] MEDS: clopidogrel 75mg tablet NG SCH (07:37)
[2019-05-19] MEDS: carVEDilol 3.125mg tablet PO SCH (07:41)
[2019-05-19] MEDS ORDERED: normal saline 1000ml 1,000 ML IV ONE (08:55)
[2019-05-19 11:08] LABS: ANION GAP 11 (8-16); BLOOD UREA NITROGEN 30 MG/DL (7-18); BUN/CREATININE RATIO 11.6 (5.4-32.0); CALCIUM 7.1 MG/DL (8.5-10.1); CHLORIDE 107 MMOL/L (99-107); CREATININE 2.58 MG/DL (0.60-1.10); GLUCOSE 144 MG/DL (70-104); MAGNESIUM 1.8 MG/DL (1.5-2.4); SODIUM 135 MMOL/L (135-145); TOTAL CARBON DIOXIDE 17.4 MMOL/L (24-32); eGFR 25 ML/MIN
[2019-05-19 11:09] LABS: POTASSIUM 4.2 MMOL/L (3.5-5.1)
[2019-05-19] MEDS: VANCOmycin 1250MG/NS 250ml Bag 250 ML IV SCH (11:40)
[2019-05-19] MEDS: normal saline 1000ml 1,000 ML IV SCH (11:41)
[2019-05-19] MEDS: heparin 25,000 UNIT/250ml bag 250 ML IV SCH (12:50)
[2019-05-19] MEDS: FENTANYL-0.9 % NACL/PF 100 ML IV PRN (13:19)
[2019-05-19] MEDS: methylPREDNISolone sod succ 125mg/2ml vial IV SCH ×2 (13:48→19:30)
[2019-05-19] MEDS: midazolam 100mg in NS 100ml 100 ML IV PRN (14:44)
--- NOTE | 2019-05-19 16:09 | NUR ---
TF Consult: OGTF to start today per MD s/p rewarming. TF recs below given pt needs. Will monitor for TF tolerance. Recommend: 1. OGTF using Vital High Protein at 75 ml/hr to provide total volume of 1800 ml, 1800 cals, 158g protein and 1512ml water. Initiate at 20ml/hr and advance 20ml Q8 to goal as tolerated. 2. prealbumin q Thursday and , daily weights 3. additional water flush per spool hauler; Na 135 4. monitor for TF tolerance 5. When extubated and alert needs written and verbal DM education, A1c is 11.6 Addendum: 05/19/19 at [address] Amended: Links added.
[2019-05-19] MEDS ORDERED: insulin regular, human vial - multi-dose SQ SCH (16:58)
[2019-05-19] MEDS ORDERED: acetaminophen 325mg tablet NG PRN ×2 (17:05)
[2019-05-19] MEDS ORDERED: dextrose ORAL solution 15 GM/59 ML bottle NG PRN ×2 (17:07)
[2019-05-19] MEDS ORDERED: mag hydrox/Alum hydrox/simeth 30ml oral suspension NG PRN (17:09)
[2019-05-19] MEDS ORDERED: magnesium hydroxide 30ml (MOM) UD suspension NG PRN (17:10)
--- NOTE | 2019-05-19 18:08 | NUR ---
Problems reprioritized. Patient report given, questions answered & plan of care reviewed with oncoming shift.
[2019-05-19] MEDS ORDERED: HYDROcodone/acetaminophen 7.5MG/325MG per 15ml UD CUP NG PRN (18:25)
--- NOTE | 2019-05-19 18:43 | NUR ---
183..Patient in room ICU 2038. I have received report from Salomón MORALES and had the opportunity to ask questions and assume patient care.
[2019-05-19] MEDS: lisinopril 2.5mg tablet NG SCH (19:30)
[2019-05-19] MEDS: carVEDilol 3.125mg tablet NG SCH (19:30)
--- NOTE | 2019-05-19 21:38 | NUR ---
2000..Assessment as noted, pt wakes up, moves all extremities,does not follow commands.
[2019-05-20] VITALS (24 sets, daily range): BP systolic 84–120; BP diastolic 30–53
--- NOTE | 2019-05-20 00:22 | NUR ---
0000..No changes noted.
--- NOTE | 2019-05-20 01:09 | NUR ---
late..1999..IABP timing changed to 1:3 by .
[2019-05-20] MEDS: mineral oil/petrolatum ophthal oint EACHEYE SCH ×4 (02:22→20:22)
[2019-05-20] MEDS: methylPREDNISolone sod succ 125mg/2ml vial IV SCH ×2 (02:22→07:44)
[2019-05-20] MEDS: NORepinephrine 8mg/ 250ml NS 250 ML IV SCH ×2 (02:23→16:28)
[2019-05-20] MEDS: FENTANYL-0.9 % NACL/PF 100 ML IV PRN (02:31)
[2019-05-20 02:37] LABS: BASOPHILS % (AUTO) 0.1 % (0-1); EOSINOPHILS % (AUTO) 0 % (0-6); HEMATOCRIT 24.9 % (42.0-52.0); HEMOGLOBIN 8.3 g/dl (14.0-17.9); LYMPHOCYTES # (AUTO) 0.8 X10'3 (1.1-4.8); MEAN CORPUSCULAR HEMOGLOBIN 31.1 PG (27.0-31.0); MEAN CORPUSCULAR HGB CONC 33.4 g/dL (33.0-36.5); MEAN CORPUSCULAR VOLUME 93.2 FL (78-98); MEAN PLATELET VOLUME 7.6 FL (7.4-10.4); MONOCYTES # (AUTO) 0.5 X10'3 (0-0.9); MONOCYTES % (AUTO) 3.1 % (2-12); NEUTROPHILS % (AUTO) 91.8 % (42-75); PLATELET COUNT 163 X10'3 (140-440); RED BLOOD COUNT 2.67 X10'6 (4.70-6.10); RED CELL DISTRIBUTION WIDTH 13.8 % (11.5-14.5); WHITE BLOOD COUNT 15.3 X10'3 (4.5-11.0)
[2019-05-20] MEDS: ipratropium/albuterol 3ml nebule NEB SCH ×6 (02:37→22:43)
[2019-05-20 02:48] LABS: PARTIAL THROMBOPLASTIN TIME 55 SECONDS (22-32)
[2019-05-20 02:54] LABS: ALANINE AMINOTRANSFERASE 23 U/L (12-78); ALBUMIN/GLOBULIN RATIO 0.5 (1.1-1.5); ALKALINE PHOSPHATASE 101 IU/L (46-116); ANION GAP 8 (8-16); ASPARTATE AMINO TRANSFERASE 49 U/L (10-37); BILIRUBIN,TOTAL 2.2 MG/DL (0.1-1.0); BLOOD UREA NITROGEN 36 MG/DL (7-18); BUN/CREATININE RATIO 11.4 (5.4-32.0); CALCIUM 7.2 MG/DL (8.5-10.1); CHLORIDE 105 MMOL/L (99-107); CREATININE 3.16 MG/DL (0.60-1.10); GLUCOSE 172 MG/DL (70-104); MAGNESIUM 1.8 MG/DL (1.5-2.4); PHOSPHORUS 4.2 MG/DL (2.3-4.5); POTASSIUM 4.7 MMOL/L (3.5-5.1); PREALBUMIN 9.4 MG/DL (19-36); SODIUM 133 MMOL/L (135-145); TOTAL CARBON DIOXIDE 19.9 MMOL/L (24-32); eGFR 19 ML/MIN
[2019-05-20] MEDS: DOBUTamine 2000 MCG/250ML BAG IV SCH ×3 (03:56→23:22)
[2019-05-20 04:21] LABS: ABG BASE EXCESS -10.8 mmol/L (-2.0-3.0); ABG HCO3 14.2 mmol/L (22.0-26.0); ABG OXYGEN SATURATION 91.7 % (95-98); ABG PCO2 (T) 28.3 mmHg (35.0-45.0); ABG PH (T) 7.317 (7.350-7.450); ABG PO2 (T) 63.1 mmHg (83-108); FCOHb 0.3 % (0.5-1.5); FMetHb 0.1 % (0.3-1.12); FO2Hb 91.3 % (94-100); MINUTE VOLUME 9 L/min; PATIENT TEMPERATURE 36.8; PEEP 8 cm H2O; RESPIRATORY RATE 18 b/min; RESPIRATORY RATE (OBSERVED) 18 b/min; TIDAL VOLUME 450 mL; TOTAL HEMOGLOBIN 9.7 G/dl (14.0-17.9)
--- NOTE | 2019-05-20 04:33 | NUR ---
0400..No changes noted.
--- NOTE | 2019-05-20 06:15 | NUR ---
Patient in room ICU 2038. I have received report from shift leader and had the opportunity to ask questions and assume patient care.
--- NOTE | 2019-05-20 06:21 | NUR ---
0620..Problems reprioritized. Patient report given, questions answered & plan of care reviewed with Salomón MORALES.
[2019-05-20] MEDS: aspirin 81mg tab.chew NG SCH (07:44)
[2019-05-20] MEDS: cefepime 1GM in D5W 50mL IVPB IV SCH (07:44)
[2019-05-20] MEDS: pantoprazole 40 MG vial IV SCH (07:44)
[2019-05-20] MEDS: atorvastatin 20mg tablet NG SCH (07:44)
[2019-05-20] MEDS: lactobacillus rhamnosus 10,000 MMU CELLS/CAPSULE PO SCH ×2 (07:44→20:22)
[2019-05-20] MEDS: clopidogrel 75mg tablet NG SCH (07:44)
[2019-05-20] MEDS: carVEDilol 3.125mg tablet NG SCH ×2 (07:45→20:00)
[2019-05-20] MEDS ORDERED: pneumococcal 23-VAL P-sac vacc 25 mcg/0.5ml vial IMVAC ONE (10:00)
[2019-05-20] MEDS ORDERED: furosemide 40mg/4ml inj IV ONE (10:15)
[2019-05-20] MEDS ORDERED: docusate sod 100mg capsule PO SCH (11:06)
[2019-05-20] MEDS ORDERED: VANCOMYCIN LEVEL IV ONE (11:30)
--- NOTE | 2019-05-20 12:03 | NUR ---
Christiano trigger: B12; skin intact. Addendum: 05/20/19 at [address] Amended: Links added.
[2019-05-20] MEDS: acetylcysteine 200 MG/ml 4ml vial INH SCH ×2 (12:32→18:34)
[2019-05-20] MEDS: methylnaltrexone br 12mg/0.6ml inj***SubQ only SQ SCH (12:51)
[2019-05-20] MEDS: VANCOmycin 1250MG/NS 250ml Bag 250 ML IV SCH (12:52)
[2019-05-20] MEDS: metoclopramide 5 mg/ml inj IV SCH ×2 (16:26→20:18)
[2019-05-20] MEDS: methylPREDNISolone sod succ/PF 40mg inj. IV SCH ×2 (16:26→20:17)
[2019-05-20] MEDS: normal saline 1000ml 1,000 ML IV SCH (16:27)
[2019-05-20] MEDS: insulin regular, human 100 UNIT in normal saline 100ml IV soln 99 ML IV SCH ×2 (16:29)
[2019-05-20] MEDS: midazolam 100mg in NS 100ml 100 ML IV PRN (16:30)
--- NOTE | 2019-05-20 18:05 | NUR ---
Problems reprioritized. Patient report given, questions answered & plan of care reviewed with oncoming shift.
[2019-05-20] MEDS: docusate sodium 100mg/10ml UD cup PO SCH (20:19)
[2019-05-20] MEDS: furosemide 40mg/4ml inj IV SCH (20:21)
[2019-05-20] MEDS: lisinopril 2.5mg tablet NG SCH (20:33)
[2019-05-21] VITALS (24 sets, daily range): BP systolic 87–124; BP diastolic 28–60
[2019-05-21] MEDS: FENTANYL-0.9 % NACL/PF 100 ML IV PRN (00:20)
[2019-05-21] MEDS: mineral oil/petrolatum ophthal oint EACHEYE SCH ×4 (02:32→20:36)
[2019-05-21] MEDS: metoclopramide 5 mg/ml inj IV SCH ×4 (02:32→20:36)
[2019-05-21] MEDS: methylPREDNISolone sod succ/PF 40mg inj. IV SCH ×4 (02:32→20:36)
[2019-05-21] MEDS: ipratropium/albuterol 3ml nebule NEB SCH ×6 (02:37→22:27)
[2019-05-21] MEDS: midazolam 100mg in NS 100ml 100 ML IV PRN (03:00)
[2019-05-21 03:15] LABS: BASOPHILS % (AUTO) 0 % (0-1); EOSINOPHILS % (AUTO) 0 % (0-6); HEMATOCRIT 24.8 % (42.0-52.0); HEMOGLOBIN 8.1 g/dl (14.0-17.9); LYMPHOCYTES # (AUTO) 0.6 X10'3 (1.1-4.8); LYMPHOCYTES % (AUTO) 3.6 % (21-51); MEAN CORPUSCULAR HEMOGLOBIN 30.9 PG (27.0-31.0); MEAN CORPUSCULAR HGB CONC 32.8 g/dL (33.0-36.5); MEAN CORPUSCULAR VOLUME 94.2 FL (78-98); MEAN PLATELET VOLUME 7.8 FL (7.4-10.4); MONOCYTES # (AUTO) 0.9 X10'3 (0-0.9); MONOCYTES % (AUTO) 5.5 % (2-12); NEUTROPHILS # (AUTO) 15.5 X10'3 (1.8-7.7); NEUTROPHILS % (AUTO) 90.9 % (42-75); PLATELET COUNT 165 X10'3 (140-440); RED BLOOD COUNT 2.63 X10'6 (4.70-6.10); RED CELL DISTRIBUTION WIDTH 14.4 % (11.5-14.5); WHITE BLOOD COUNT 17.1 X10'3 (4.5-11.0)
[2019-05-21 03:26] LABS: ALANINE AMINOTRANSFERASE 37 U/L (12-78); ALBUMIN 2.1 G/DL (3.4-5.0); ALBUMIN/GLOBULIN RATIO 0.6 (1.1-1.5); ALKALINE PHOSPHATASE 174 IU/L (46-116); ANION GAP 12 (8-16); ASPARTATE AMINO TRANSFERASE 72 U/L (10-37); BILIRUBIN,TOTAL 2.3 MG/DL (0.1-1.0); BLOOD UREA NITROGEN 52 MG/DL (7-18); BUN/CREATININE RATIO 12.9 (5.4-32.0); CALCIUM 7.1 MG/DL (8.5-10.1); CHLORIDE 105 MMOL/L (99-107); CREATININE 4.04 MG/DL (0.60-1.10); GLUCOSE 184 MG/DL (70-104); PHOSPHORUS 4.7 MG/DL (2.3-4.5); POTASSIUM 4.5 MMOL/L (3.5-5.1); SODIUM 134 MMOL/L (135-145); TOTAL CARBON DIOXIDE 17.2 MMOL/L (24-32); TOTAL PROTEIN 5.9 G/DL (6.4-8.2); eGFR 15 ML/MIN
[2019-05-21 03:50] LABS: PARTIAL THROMBOPLASTIN TIME 31 SECONDS (22-32)
[2019-05-21 04:30] LABS: ABG BASE EXCESS -9.4 mmol/L (-2.0-3.0); ABG HCO3 15.5 mmol/L (22.0-26.0); ABG OXYGEN SATURATION 95.2 % (95-98); ABG PCO2 (T) 29.6 mmHg (35.0-45.0); ABG PH (T) 7.335 (7.350-7.450); ABG PO2 (T) 76.9 mmHg (83-108); FCOHb 0.3 % (0.5-1.5); FMetHb 0.1 % (0.3-1.12); FO2Hb 94.8 % (94-100); MINUTE VOLUME 10 L/min; PATIENT TEMPERATURE 36.6; PEEP 8 cm H2O; RESPIRATORY RATE 18 b/min; RESPIRATORY RATE (OBSERVED) 18 b/min; TIDAL VOLUME 500 mL; TOTAL HEMOGLOBIN 9.6 G/dl (14.0-17.9)
[2019-05-21] MEDS: acetylcysteine 200 MG/ml 4ml vial INH SCH ×2 (06:59→18:39)
[2019-05-21] MEDS: carVEDilol 3.125mg tablet NG SCH ×2 (08:00→20:00)
[2019-05-21] MEDS: DOBUTamine 2000 MCG/250ML BAG IV SCH ×2 (08:19→16:37)
[2019-05-21] MEDS: cefepime 1GM in D5W 50mL IVPB IV SCH (08:33)
[2019-05-21] MEDS: furosemide 40mg/4ml inj IV SCH ×2 (08:33→20:35)
[2019-05-21] MEDS: clopidogrel 75mg tablet NG SCH (08:34)
[2019-05-21] MEDS: docusate sodium 100mg/10ml UD cup PO SCH ×2 (08:34→20:36)
[2019-05-21] MEDS: pantoprazole 40 MG vial IV SCH (08:34)
[2019-05-21] MEDS: atorvastatin 20mg tablet NG SCH (08:34)
[2019-05-21] MEDS: aspirin 81mg tab.chew NG SCH (08:34)
[2019-05-21] MEDS: lactobacillus rhamnosus 10,000 MMU CELLS/CAPSULE PO SCH ×2 (08:34→20:36)
[2019-05-21] MEDS ORDERED: heparin 10,000 units/1 ML INJ IV ONE (09:05)
[2019-05-21] MEDS ORDERED: calcium chloride inj. 1,000 MG in normal saline 100ml IV soln 100 ML IV PRN (09:05)
[2019-05-21] MEDS ORDERED: heparin 10,000 units/1 ML INJ IV PRN (09:05)
[2019-05-21] MEDS ORDERED: magnesium 4gm in 100ml NS 100 ML IV PRN (09:05)
[2019-05-21] MEDS ORDERED: sodium phosphate inj. 30 MMOL in normal saline 250ml IV soln 250 ML IV PRN (09:05)
[2019-05-21] MEDS: heparin 25,000 UNIT/250ml bag 250 ML IV SCH (10:06)
[2019-05-21] MEDS: Duosol 4K/3 Ca (w/calcium) 5,000 ML HE SCH ×9 (12:00→22:48)
[2019-05-21] MEDS: NORepinephrine 8mg/ 250ml NS 250 ML IV SCH ×2 (12:26→20:35)
[2019-05-21] MEDS: vancomycin/NS 1 GM ADD-VANTAGE 250 ML IV SCH (12:26)
[2019-05-21 13:28] LABS: BASOPHILS % (AUTO) 0.1 % (0-1); EOSINOPHILS % (AUTO) 0 % (0-6); HEMATOCRIT 25.2 % (42.0-52.0); HEMOGLOBIN 8.3 g/dl (14.0-17.9); LYMPHOCYTES # (AUTO) 0.7 X10'3 (1.1-4.8); LYMPHOCYTES % (AUTO) 3.8 % (21-51); MEAN CORPUSCULAR HEMOGLOBIN 31.1 PG (27.0-31.0); MEAN CORPUSCULAR HGB CONC 32.9 g/dL (33.0-36.5); MEAN CORPUSCULAR VOLUME 94.4 FL (78-98); MEAN PLATELET VOLUME 7.6 FL (7.4-10.4); MONOCYTES # (AUTO) 1.2 X10'3 (0-0.9); MONOCYTES % (AUTO) 6.3 % (2-12); NEUTROPHILS # (AUTO) 16.4 X10'3 (1.8-7.7); NEUTROPHILS % (AUTO) 89.8 % (42-75); PLATELET COUNT 178 X10'3 (140-440); RED BLOOD COUNT 2.67 X10'6 (4.70-6.10); RED CELL DISTRIBUTION WIDTH 14.5 % (11.5-14.5); WHITE BLOOD COUNT 18.3 X10'3 (4.5-11.0)
[2019-05-21 13:38] LABS: ALBUMIN 2.2 G/DL (3.4-5.0); ANION GAP 14 (8-16); BLOOD UREA NITROGEN 57 MG/DL (7-18); BUN/CREATININE RATIO 14.1 (5.4-32.0); CHLORIDE 104 MMOL/L (99-107); CREATININE 4.05 MG/DL (0.60-1.10); GLUCOSE 159 MG/DL (70-104); PHOSPHORUS 4.9 MG/DL (2.3-4.5); POTASSIUM 4.7 MMOL/L (3.5-5.1); SODIUM 135 MMOL/L (135-145); TOTAL CARBON DIOXIDE 16.6 MMOL/L (24-32); eGFR 15 ML/MIN
[2019-05-21 14:44] LABS: BASOPHILS % (AUTO) 0.1 % (0-1); EOSINOPHILS % (AUTO) 0 % (0-6); HEMATOCRIT 24.9 % (42.0-52.0); HEMOGLOBIN 8.3 g/dl (14.0-17.9); LYMPHOCYTES # (AUTO) 0.5 X10'3 (1.1-4.8); LYMPHOCYTES % (AUTO) 2.7 % (21-51); MEAN CORPUSCULAR HEMOGLOBIN 31.2 PG (27.0-31.0); MEAN CORPUSCULAR HGB CONC 33.6 g/dL (33.0-36.5); MEAN CORPUSCULAR VOLUME 92.8 FL (78-98); MEAN PLATELET VOLUME 7.6 FL (7.4-10.4); MONOCYTES % (AUTO) 5.7 % (2-12); NEUTROPHILS # (AUTO) 16.5 X10'3 (1.8-7.7); NEUTROPHILS % (AUTO) 91.5 % (42-75); PLATELET COUNT 186 X10'3 (140-440); RED BLOOD COUNT 2.68 X10'6 (4.70-6.10); RED CELL DISTRIBUTION WIDTH 14.2 % (11.5-14.5); WHITE BLOOD COUNT 18.1 X10'3 (4.5-11.0)
[2019-05-21 14:52] LABS: ALBUMIN 2.1 G/DL (3.4-5.0); ANION GAP 13 (8-16); BLOOD UREA NITROGEN 53 MG/DL (7-18); BUN/CREATININE RATIO 13.9 (5.4-32.0); CHLORIDE 104 MMOL/L (99-107); CREATININE 3.81 MG/DL (0.60-1.10); GLUCOSE 166 MG/DL (70-104); PHOSPHORUS 4.4 MG/DL (2.3-4.5); POTASSIUM 4.4 MMOL/L (3.5-5.1); SODIUM 134 MMOL/L (135-145); TOTAL CARBON DIOXIDE 17.5 MMOL/L (24-32); eGFR 16 ML/MIN
[2019-05-21 15:30] LABS: BASOPHILS % (AUTO) 0.1 % (0-1); EOSINOPHILS % (AUTO) 0 % (0-6); HEMOGLOBIN 8.1 g/dl (14.0-17.9); LYMPHOCYTES # (AUTO) 0.6 X10'3 (1.1-4.8); LYMPHOCYTES % (AUTO) 3.7 % (21-51); MEAN CORPUSCULAR HEMOGLOBIN 31.2 PG (27.0-31.0); MEAN CORPUSCULAR HGB CONC 33.8 g/dL (33.0-36.5); MEAN CORPUSCULAR VOLUME 92.4 FL (78-98); MEAN PLATELET VOLUME 7.6 FL (7.4-10.4); MONOCYTES # (AUTO) 0.7 X10'3 (0-0.9); MONOCYTES % (AUTO) 4.4 % (2-12); NEUTROPHILS # (AUTO) 14.5 X10'3 (1.8-7.7); NEUTROPHILS % (AUTO) 91.8 % (42-75); PLATELET COUNT 185 X10'3 (140-440); RED CELL DISTRIBUTION WIDTH 14.4 % (11.5-14.5); WHITE BLOOD COUNT 15.7 X10'3 (4.5-11.0)
[2019-05-21 15:43] LABS: ANION GAP 11 (8-16); BLOOD UREA NITROGEN 52 MG/DL (7-18); BUN/CREATININE RATIO 14.1 (5.4-32.0); CHLORIDE 105 MMOL/L (99-107); GLUCOSE 159 MG/DL (70-104); MAGNESIUM 1.8 MG/DL (1.5-2.4); PHOSPHORUS 4.4 MG/DL (2.3-4.5); POTASSIUM 4.2 MMOL/L (3.5-5.1); SODIUM 135 MMOL/L (135-145); TOTAL CARBON DIOXIDE 19.1 MMOL/L (24-32); eGFR 16 ML/MIN
[2019-05-21 16:35] LABS: BASOPHILS % (AUTO) 0.1 % (0-1); EOSINOPHILS % (AUTO) 0 % (0-6); HEMATOCRIT 25.1 % (42.0-52.0); HEMOGLOBIN 8.5 g/dl (14.0-17.9); LYMPHOCYTES # (AUTO) 0.7 X10'3 (1.1-4.8); LYMPHOCYTES % (AUTO) 3.6 % (21-51); MEAN CORPUSCULAR HGB CONC 33.8 g/dL (33.0-36.5); MEAN CORPUSCULAR VOLUME 91.9 FL (78-98); MEAN PLATELET VOLUME 7.5 FL (7.4-10.4); MONOCYTES % (AUTO) 10.2 % (2-12); NEUTROPHILS # (AUTO) 16.8 X10'3 (1.8-7.7); NEUTROPHILS % (AUTO) 86.1 % (42-75); PLATELET COUNT 192 X10'3 (140-440); RED BLOOD COUNT 2.73 X10'6 (4.70-6.10); RED CELL DISTRIBUTION WIDTH 14.2 % (11.5-14.5); WHITE BLOOD COUNT 19.5 X10'3 (4.5-11.0)
[2019-05-21] MEDS: normal saline 1000ml 1,000 ML IV SCH (16:37)
[2019-05-21 16:38] LABS: ALBUMIN 2.1 G/DL (3.4-5.0); ANION GAP 10 (8-16); BLOOD UREA NITROGEN 49 MG/DL (7-18); BUN/CREATININE RATIO 13.6 (5.4-32.0); CHLORIDE 104 MMOL/L (99-107); CREATININE 3.59 MG/DL (0.60-1.10); GLUCOSE 161 MG/DL (70-104); MAGNESIUM 1.9 MG/DL (1.5-2.4); PHOSPHORUS 4.2 MG/DL (2.3-4.5); POTASSIUM 4.2 MMOL/L (3.5-5.1); SODIUM 134 MMOL/L (135-145); TOTAL CARBON DIOXIDE 19.8 MMOL/L (24-32); eGFR 17 ML/MIN
[2019-05-21] MEDS: insulin regular, human 100 UNIT in normal saline 100ml IV soln 99 ML IV SCH ×2 (17:06)
--- NOTE | 2019-05-21 18:05 | NUR ---
Problems reprioritized. Patient report given, questions answered & plan of care reviewed with oncomingl shift.
[2019-05-21 18:12] LABS: TOTAL CELLS COUNTED 100
[2019-05-21 18:13] LABS: PLATELET ESTIMATE NORMAL; POLYCHROMASIA FEW
--- NOTE | 2019-05-21 18:30 | NUR ---
Patient in room ICU 2038. I have received report from Sapphire MORALES and had the opportunity to ask questions and assume patient care.
--- NOTE | 2019-05-21 20:00 | NUR ---
Pt very restless during sedation vacation. Trying to sit up, moving arms and legs, pulling against restraints. Pt opens eyes spontaneously or to voice but will not follow commands. During one of multiple times reorienting pt, trying to get him to follow commands, I told him he was in the hospital and he mouthed, "I know" but continued to thrash about. Sedation boluses had to be given and rate titrated as needed to keep CVVH running and steve site from bleeding. Dentures were removed at beginning of shift and pt was noted to have a bloody blister on the Left inside cheek. Blister remains intact. Copious oral secretions, pt does not like oral care, cuff leak noted when pt moving trying to avoid oral suctioning.
[2019-05-21] MEDS: lisinopril 2.5mg tablet NG SCH (20:37)
[2019-05-21 22:18] LABS: BASOPHILS % (AUTO) 0 % (0-1); EOSINOPHILS % (AUTO) 0 % (0-6); HEMATOCRIT 26.6 % (42.0-52.0); HEMOGLOBIN 8.8 g/dl (14.0-17.9); LYMPHOCYTES # (AUTO) 1.5 X10'3 (1.1-4.8); MEAN CORPUSCULAR HEMOGLOBIN 30.9 PG (27.0-31.0); MEAN CORPUSCULAR VOLUME 93.4 FL (78-98); MEAN PLATELET VOLUME 7.6 FL (7.4-10.4); MONOCYTES # (AUTO) 2.9 X10'3 (0-0.9); MONOCYTES % (AUTO) 13.4 % (2-12); NEUTROPHILS # (AUTO) 17.1 X10'3 (1.8-7.7); NEUTROPHILS % (AUTO) 79.6 % (42-75); PLATELET COUNT 218 X10'3 (140-440); RED BLOOD COUNT 2.85 X10'6 (4.70-6.10); RED CELL DISTRIBUTION WIDTH 14.3 % (11.5-14.5); WHITE BLOOD COUNT 21.5 X10'3 (4.5-11.0)
[2019-05-21 22:46] LABS: ALBUMIN 2.3 G/DL (3.4-5.0); ANION GAP 13 (8-16); BLOOD UREA NITROGEN 44 MG/DL (7-18); BUN/CREATININE RATIO 14.5 (5.4-32.0); CHLORIDE 103 MMOL/L (99-107); CREATININE 3.03 MG/DL (0.60-1.10); GLUCOSE 176 MG/DL (70-104); MAGNESIUM 1.8 MG/DL (1.5-2.4); PHOSPHORUS 3.4 MG/DL (2.3-4.5); POTASSIUM 4.5 MMOL/L (3.5-5.1); SODIUM 135 MMOL/L (135-145); TOTAL CARBON DIOXIDE 19.5 MMOL/L (24-32); eGFR 20 ML/MIN
[2019-05-22] VITALS (23 sets, daily range): BP systolic 98–131; BP diastolic 29–49
[2019-05-22] MEDS: DOBUTamine 2000 MCG/250ML BAG IV SCH ×2 (02:13→21:13)
[2019-05-22] MEDS: mineral oil/petrolatum ophthal oint EACHEYE SCH ×4 (02:18→21:13)
[2019-05-22] MEDS: metoclopramide 5 mg/ml inj IV SCH ×4 (02:18→21:13)
[2019-05-22] MEDS: methylPREDNISolone sod succ/PF 40mg inj. IV SCH ×4 (02:18→21:14)
[2019-05-22] MEDS: FENTANYL-0.9 % NACL/PF 100 ML IV PRN (02:19)
[2019-05-22] MEDS: midazolam 100mg in NS 100ml 100 ML IV PRN (02:19)
[2019-05-22] MEDS: ipratropium/albuterol 3ml nebule NEB SCH ×6 (02:37→23:00)
[2019-05-22] MEDS: insulin regular, human 100 UNIT in normal saline 100ml IV soln 99 ML IV SCH ×4 (04:15→15:20)
[2019-05-22 04:25] LABS: ABG BASE EXCESS -1.4 mmol/L (-2.0-3.0); ABG OXYGEN SATURATION 96.8 % (95-98); ABG PCO2 (T) 31.3 mmHg (35.0-45.0); ABG PH (T) 7.463 (7.350-7.450); ABG PO2 (T) 86.7 mmHg (83-108); ALLEN'S TEST Positive; FCOHb 0.2 % (0.5-1.5); FMetHb 0.3 % (0.3-1.12); FO2Hb 96.3 % (94-100); MINUTE VOLUME 10 L/min; PATIENT TEMPERATURE 36.4; PEEP 8 cm H2O; RESPIRATORY RATE 18 b/min; RESPIRATORY RATE (OBSERVED) 18 b/min; TIDAL VOLUME 500 mL; TOTAL HEMOGLOBIN 9.8 G/dl (14.0-17.9)
[2019-05-22 04:26] LABS: BASOPHILS % (AUTO) 0.1 % (0-1); EOSINOPHILS % (AUTO) 0 % (0-6); HEMOGLOBIN 8.7 g/dl (14.0-17.9); LYMPHOCYTES # (AUTO) 0.8 X10'3 (1.1-4.8); LYMPHOCYTES % (AUTO) 4.6 % (21-51); MEAN CORPUSCULAR HEMOGLOBIN 31.1 PG (27.0-31.0); MEAN CORPUSCULAR HGB CONC 33.5 g/dL (33.0-36.5); MEAN PLATELET VOLUME 7.5 FL (7.4-10.4); NEUTROPHILS # (AUTO) 15.3 X10'3 (1.8-7.7); NEUTROPHILS % (AUTO) 84.3 % (42-75); PLATELET COUNT 210 X10'3 (140-440); RED BLOOD COUNT 2.79 X10'6 (4.70-6.10); RED CELL DISTRIBUTION WIDTH 14.3 % (11.5-14.5); WHITE BLOOD COUNT 18.1 X10'3 (4.5-11.0)
[2019-05-22 04:39] LABS: ALBUMIN 2.3 G/DL (3.4-5.0); ANION GAP 10 (8-16); BLOOD UREA NITROGEN 40 MG/DL (7-18); BUN/CREATININE RATIO 15.4 (5.4-32.0); CHLORIDE 103 MMOL/L (99-107); GLUCOSE 138 MG/DL (70-104); MAGNESIUM 1.7 MG/DL (1.5-2.4); PHOSPHORUS 2.9 MG/DL (2.3-4.5); SODIUM 136 MMOL/L (135-145); TOTAL CARBON DIOXIDE 23.2 MMOL/L (24-32); eGFR 24 ML/MIN
[2019-05-22] MEDS: Duosol 4K/3 Ca (w/calcium) 5,000 ML HE SCH ×12 (04:48→23:08)
--- NOTE | 2019-05-22 06:28 | NUR ---
Problems reprioritized. Patient report given, questions answered & plan of care reviewed with Nestor MORALES.
--- NOTE | 2019-05-22 06:30 | NUR ---
Patient in room ICU 2038. I have received report from Elissa MORALES and had the opportunity to ask questions and assume patient care.
[2019-05-22 06:57] LABS: ANISOCYTOSIS 1+; NUCLEATED RED BLOOD CELLS 2 /100WBC (0-0); PLATELET ESTIMATE NORMAL; POLYCHROMASIA FEW; TOTAL CELLS COUNTED 100
[2019-05-22] MEDS: acetylcysteine 200 MG/ml 4ml vial INH SCH ×2 (07:00→18:39)
[2019-05-22] MEDS: atorvastatin 20mg tablet NG SCH (07:28)
[2019-05-22] MEDS: aspirin 81mg tab.chew NG SCH (07:28)
[2019-05-22] MEDS: lactobacillus rhamnosus 10,000 MMU CELLS/CAPSULE PO SCH ×2 (07:28→21:14)
[2019-05-22] MEDS: docusate sodium 100mg/10ml UD cup PO SCH ×2 (07:28→21:14)
[2019-05-22] MEDS: furosemide 40mg/4ml inj IV SCH ×2 (07:29→20:00)
[2019-05-22] MEDS: pantoprazole 40 MG vial IV SCH (07:31)
[2019-05-22] MEDS: methylnaltrexone br 12mg/0.6ml inj***SubQ only SQ SCH (07:36)
[2019-05-22] MEDS: cefepime 1GM in D5W 50mL IVPB IV SCH (08:09)
[2019-05-22] MEDS: carVEDilol 3.125mg tablet NG SCH ×2 (09:36→20:00)
[2019-05-22] MEDS: clopidogrel 75mg tablet NG SCH (10:15)
[2019-05-22] MEDS: NORepinephrine 8mg/ 250ml NS 250 ML IV SCH ×2 (10:17→21:17)
[2019-05-22 10:50] LABS: BASOPHILS % (AUTO) 0.1 % (0-1); EOSINOPHILS % (AUTO) 0 % (0-6); HEMATOCRIT 25.5 % (42.0-52.0); HEMOGLOBIN 8.6 g/dl (14.0-17.9); LYMPHOCYTES # (AUTO) 0.7 X10'3 (1.1-4.8); LYMPHOCYTES % (AUTO) 4.1 % (21-51); MEAN CORPUSCULAR HEMOGLOBIN 31.4 PG (27.0-31.0); MEAN CORPUSCULAR HGB CONC 33.6 g/dL (33.0-36.5); MEAN CORPUSCULAR VOLUME 93.4 FL (78-98); MONOCYTES # (AUTO) 1.5 X10'3 (0-0.9); MONOCYTES % (AUTO) 8.3 % (2-12); NEUTROPHILS # (AUTO) 15.4 X10'3 (1.8-7.7); NEUTROPHILS % (AUTO) 87.5 % (42-75); PLATELET COUNT 209 X10'3 (140-440); RED BLOOD COUNT 2.73 X10'6 (4.70-6.10); RED CELL DISTRIBUTION WIDTH 14.2 % (11.5-14.5); WHITE BLOOD COUNT 17.6 X10'3 (4.5-11.0)
--- NOTE | 2019-05-22 11:00 | NUR ---
CVVH positional with frequent high pressuring throughout shift. multiple flushes needed to clear the line and resume CVVH. Will continue to monitor.
[2019-05-22 11:01] LABS: ALBUMIN 2.2 G/DL (3.4-5.0); ANION GAP 9 (8-16); BLOOD UREA NITROGEN 36 MG/DL (7-18); CHLORIDE 102 MMOL/L (99-107); CREATININE 2.25 MG/DL (0.60-1.10); GLUCOSE 226 MG/DL (70-104); MAGNESIUM 2.4 MG/DL (1.5-2.4); PHOSPHORUS 2.9 MG/DL (2.3-4.5); POTASSIUM 4.6 MMOL/L (3.5-5.1); SODIUM 136 MMOL/L (135-145); TOTAL CARBON DIOXIDE 25.3 MMOL/L (24-32); eGFR 29 ML/MIN
--- NOTE | 2019-05-22 11:05 | NUR ---
Reassessment: Pt tolerating TF at goal. No BM yet this admit 6 days receiving routine relistor, reglan, and colace. Will monitor for more aggressive bowel care needs IF constipation persists. Will continue to monitor. Recommend: 1. OGTF using Vital High Protein at 75 ml/hr to provide total volume of 1800 ml, 1800 cals, 158g protein and 1512ml water. Initiate at 20ml/hr and advance 20ml Q8 to goal as tolerated. 2. prealbumin q Thursday and , daily weights 3. additional water flush per associate entertainment editor; Na 135 4. monitor for TF tolerance 5. When extubated and alert needs written and verbal DM education, A1c is 11.6 Addendum: 05/22/19 at [address] Amended: Links added.
[2019-05-22] MEDS: vancomycin/NS 1 GM ADD-VANTAGE 250 ML IV SCH (12:11)
[2019-05-22 16:14] LABS: BASOPHILS % (AUTO) 0.1 % (0-1); EOSINOPHILS % (AUTO) 0 % (0-6); HEMATOCRIT 26.2 % (42.0-52.0); HEMOGLOBIN 8.8 g/dl (14.0-17.9); LYMPHOCYTES # (AUTO) 1.1 X10'3 (1.1-4.8); LYMPHOCYTES % (AUTO) 5.5 % (21-51); MEAN CORPUSCULAR HEMOGLOBIN 31.1 PG (27.0-31.0); MEAN CORPUSCULAR HGB CONC 33.7 g/dL (33.0-36.5); MEAN CORPUSCULAR VOLUME 92.2 FL (78-98); MEAN PLATELET VOLUME 7.7 FL (7.4-10.4); MONOCYTES # (AUTO) 2.6 X10'3 (0-0.9); MONOCYTES % (AUTO) 13.7 % (2-12); NEUTROPHILS # (AUTO) 15.5 X10'3 (1.8-7.7); NEUTROPHILS % (AUTO) 80.7 % (42-75); PLATELET COUNT 225 X10'3 (140-440); RED BLOOD COUNT 2.84 X10'6 (4.70-6.10); RED CELL DISTRIBUTION WIDTH 14.5 % (11.5-14.5); WHITE BLOOD COUNT 19.2 X10'3 (4.5-11.0)
[2019-05-22 16:25] LABS: ALBUMIN 2.1 G/DL (3.4-5.0); ANION GAP 7 (8-16); BLOOD UREA NITROGEN 34 MG/DL (7-18); BUN/CREATININE RATIO 16.5 (5.4-32.0); CHLORIDE 104 MMOL/L (99-107); CREATININE 2.06 MG/DL (0.60-1.10); GLUCOSE 123 MG/DL (70-104); MAGNESIUM 2.2 MG/DL (1.5-2.4); PHOSPHORUS 2.5 MG/DL (2.3-4.5); POTASSIUM 4.4 MMOL/L (3.5-5.1); SODIUM 138 MMOL/L (135-145); TOTAL CARBON DIOXIDE 27.5 MMOL/L (24-32); eGFR 32 ML/MIN
[2019-05-22] MEDS: heparin 25,000 UNIT/250ml bag 250 ML IV SCH (16:37)
--- NOTE | 2019-05-22 18:11 | NUR ---
Problems reprioritized. Patient report given, questions answered & plan of care reviewed with Gisela MORALES.
--- NOTE | 2019-05-22 18:30 | NUR ---
I have received report and assumed care of pt. Pt resting in bed rise and fall of chest cavity equile and symmetrical, pt opens eyes to verbal stimuli, grimaces with oral care and shakes head from side to side with suctioning. CVVH in place assessments complete. pt does not appear to follow commands. He does move all extremities with tactical stimuli,
--- NOTE | 2019-05-22 18:45 | NUR ---
Cvvh down, strip cutting machine operator contacted will be in shortly.
--- NOTE | 2019-05-22 19:10 | NUR ---
hs cares complete pt tolerated well, linen changed, pt has a reddened area on tailbone area, area does paul hydrophilic dressing applied will turn pt side to side to maintain skin integrity.
--- NOTE | 2019-05-22 20:05 | NUR ---
levophed and dobutamine in place to keep MAP greater then [address] to keep PTT 45-60, insulin drip in place to keep blood glucose 110-150. fentanyl drip in place for pain control versed drip in place for sedation, protocol followed for titration of medications all vasoactive medications transfusing via a CVL.
[2019-05-22] MEDS: lisinopril 2.5mg tablet NG SCH (21:00)
[2019-05-22 22:33] LABS: BASOPHILS % (AUTO) 0.1 % (0-1); EOSINOPHILS % (AUTO) 0 % (0-6); HEMATOCRIT 26.7 % (42.0-52.0); HEMOGLOBIN 8.9 g/dl (14.0-17.9); LYMPHOCYTES # (AUTO) 1.7 X10'3 (1.1-4.8); LYMPHOCYTES % (AUTO) 8.4 % (21-51); MEAN CORPUSCULAR HEMOGLOBIN 31.3 PG (27.0-31.0); MEAN CORPUSCULAR HGB CONC 33.4 g/dL (33.0-36.5); MEAN CORPUSCULAR VOLUME 93.6 FL (78-98); MONOCYTES # (AUTO) 2.7 X10'3 (0-0.9); MONOCYTES % (AUTO) 13.5 % (2-12); NEUTROPHILS # (AUTO) 15.6 X10'3 (1.8-7.7); PLATELET COUNT 220 X10'3 (140-440); RED BLOOD COUNT 2.86 X10'6 (4.70-6.10); RED CELL DISTRIBUTION WIDTH 14.2 % (11.5-14.5)
[2019-05-22 22:45] LABS: ALBUMIN 2.1 G/DL (3.4-5.0); ANION GAP 5 (8-16); BLOOD UREA NITROGEN 35 MG/DL (7-18); BUN/CREATININE RATIO 17.8 (5.4-32.0); CHLORIDE 104 MMOL/L (99-107); CREATININE 1.97 MG/DL (0.60-1.10); GLUCOSE 153 MG/DL (70-104); MAGNESIUM 2.1 MG/DL (1.5-2.4); PHOSPHORUS 2.6 MG/DL (2.3-4.5); POTASSIUM 4.6 MMOL/L (3.5-5.1); SODIUM 137 MMOL/L (135-145); TOTAL CARBON DIOXIDE 27.7 MMOL/L (24-32); eGFR 33 ML/MIN
[2019-05-23] VITALS (24 sets, daily range): BP systolic 85–146; BP diastolic 28–58
[2019-05-23] MEDS: ipratropium/albuterol 3ml nebule NEB SCH ×7 (00:16→22:48)
--- NOTE | 2019-05-23 00:30 | NUR ---
cvvh screen went black and stopped working unable to restart the CVVH machine. Oncall dialysis nurse contacted, she will be in to restart CVVH.
[2019-05-23] MEDS: methylPREDNISolone sod succ/PF 40mg inj. IV SCH ×4 (03:22→20:15)
[2019-05-23] MEDS: NORepinephrine 8mg/ 250ml NS 250 ML IV SCH ×2 (03:23→08:43)
[2019-05-23] MEDS: metoclopramide 5 mg/ml inj IV SCH ×4 (03:23→20:15)
[2019-05-23] MEDS: mineral oil/petrolatum ophthal oint EACHEYE SCH ×4 (03:23→20:16)
[2019-05-23] MEDS: heparin 25,000 UNIT/250ml bag 250 ML IV SCH (03:31)
[2019-05-23 04:40] LABS: ABG BASE EXCESS 1.6 mmol/L (-2.0-3.0); ABG HCO3 25.4 mmol/L (22.0-26.0); ABG OXYGEN SATURATION 97.8 % (95-98); ABG PCO2 (T) 36.3 mmHg (35.0-45.0); ABG PH (T) 7.462 (7.350-7.450); ABG PO2 (T) 102.1 mmHg (83-108); ALLEN'S TEST Positive; FCOHb 0.3 % (0.5-1.5); FO2Hb 97.5 % (94-100); MINUTE VOLUME 10 L/min; PATIENT TEMPERATURE 36.6; PEEP 5 cm H2O; RESPIRATORY RATE 18 b/min; RESPIRATORY RATE (OBSERVED) 19 b/min; TIDAL VOLUME 500 mL; TOTAL HEMOGLOBIN 10.4 G/dl (14.0-17.9)
[2019-05-23] MEDS: FENTANYL-0.9 % NACL/PF 100 ML IV PRN (05:01)
[2019-05-23] MEDS: Duosol 4K/3 Ca (w/calcium) 5,000 ML HE SCH ×13 (05:01→23:02)
[2019-05-23] MEDS: DOBUTamine 2000 MCG/250ML BAG IV SCH ×3 (05:04→22:58)
[2019-05-23 05:25] LABS: BASOPHILS % (AUTO) 0.1 % (0-1); EOSINOPHILS % (AUTO) 0 % (0-6); HEMATOCRIT 28.1 % (42.0-52.0); HEMOGLOBIN 9.4 g/dl (14.0-17.9); LYMPHOCYTES # (AUTO) 2.6 X10'3 (1.1-4.8); LYMPHOCYTES % (AUTO) 11.6 % (21-51); MEAN CORPUSCULAR HEMOGLOBIN 31.4 PG (27.0-31.0); MEAN CORPUSCULAR HGB CONC 33.5 g/dL (33.0-36.5); MEAN CORPUSCULAR VOLUME 93.5 FL (78-98); MEAN PLATELET VOLUME 8.1 FL (7.4-10.4); MONOCYTES # (AUTO) 3.5 X10'3 (0-0.9); MONOCYTES % (AUTO) 15.9 % (2-12); NEUTROPHILS # (AUTO) 16.2 X10'3 (1.8-7.7); NEUTROPHILS % (AUTO) 72.4 % (42-75); PLATELET COUNT 232 X10'3 (140-440); RED CELL DISTRIBUTION WIDTH 14.6 % (11.5-14.5); WHITE BLOOD COUNT 22.3 X10'3 (4.5-11.0)
[2019-05-23 05:51] LABS: ALANINE AMINOTRANSFERASE 53 U/L (12-78); ALBUMIN 2.3 G/DL (3.4-5.0); ALBUMIN/GLOBULIN RATIO 0.6 (1.1-1.5); ALKALINE PHOSPHATASE 279 IU/L (46-116); ANION GAP 7 (8-16); ASPARTATE AMINO TRANSFERASE 62 U/L (10-37); BILIRUBIN,TOTAL 1.2 MG/DL (0.1-1.0); BLOOD UREA NITROGEN 36 MG/DL (7-18); BUN/CREATININE RATIO 19.1 (5.4-32.0); CALCIUM 7.8 MG/DL (8.5-10.1); CHLORIDE 103 MMOL/L (99-107); CREATININE 1.88 MG/DL (0.60-1.10); GLUCOSE 135 MG/DL (70-104); MAGNESIUM 1.9 MG/DL (1.5-2.4); POTASSIUM 4.6 MMOL/L (3.5-5.1); SODIUM 136 MMOL/L (135-145); TOTAL CARBON DIOXIDE 25.8 MMOL/L (24-32); TOTAL PROTEIN 6.4 G/DL (6.4-8.2); eGFR 35 ML/MIN
--- NOTE | 2019-05-23 06:16 | NUR ---
report given to rec rn plan of care reviewed
--- NOTE | 2019-05-23 06:30 | NUR ---
Patient in room ICU 2038. I have received report from Gisela MORALES and had the opportunity to ask questions and assume patient care.
[2019-05-23] MEDS: docusate sodium 100mg/10ml UD cup PO SCH (07:26)
[2019-05-23] MEDS: pantoprazole 40 MG vial IV SCH (07:27)
[2019-05-23 07:29] LABS: ANISOCYTOSIS 1+; NUCLEATED RED BLOOD CELLS 12 /100WBC (0-0); PLATELET ESTIMATE NORMAL; POLYCHROMASIA 1+; TOTAL CELLS COUNTED 100
[2019-05-23] MEDS: clopidogrel 75mg tablet NG SCH (07:31)
[2019-05-23] MEDS: atorvastatin 20mg tablet NG SCH (07:31)
[2019-05-23] MEDS: aspirin 81mg tab.chew NG SCH (07:31)
[2019-05-23] MEDS: lactobacillus rhamnosus 10,000 MMU CELLS/CAPSULE PO SCH ×2 (07:31→20:15)
[2019-05-23] MEDS: cefepime 1GM in D5W 50mL IVPB IV SCH (07:32)
[2019-05-23] MEDS: acetylcysteine 200 MG/ml 4ml vial INH SCH (07:48)
[2019-05-23] MEDS: carVEDilol 3.125mg tablet NG SCH (08:00)
[2019-05-23] MEDS: furosemide 40mg/4ml inj IV SCH (08:00)
[2019-05-23] MEDS ORDERED: magnesium 2GM in 50ml NS 50 ML IV PRN (08:30)
[2019-05-23 08:34] LABS: BASOPHILS % (AUTO) 0 % (0-1); EOSINOPHILS % (AUTO) 0 % (0-6); HEMATOCRIT 25.4 % (42.0-52.0); HEMOGLOBIN 8.6 g/dl (14.0-17.9); LYMPHOCYTES # (AUTO) 2.1 X10'3 (1.1-4.8); LYMPHOCYTES % (AUTO) 9.8 % (21-51); MEAN CORPUSCULAR HEMOGLOBIN 31.3 PG (27.0-31.0); MEAN CORPUSCULAR HGB CONC 33.8 g/dL (33.0-36.5); MEAN CORPUSCULAR VOLUME 92.6 FL (78-98); MEAN PLATELET VOLUME 7.8 FL (7.4-10.4); MONOCYTES # (AUTO) 2.5 X10'3 (0-0.9); MONOCYTES % (AUTO) 11.7 % (2-12); NEUTROPHILS # (AUTO) 16.4 X10'3 (1.8-7.7); NEUTROPHILS % (AUTO) 78.5 % (42-75); PLATELET COUNT 198 X10'3 (140-440); RED BLOOD COUNT 2.74 X10'6 (4.70-6.10); RED CELL DISTRIBUTION WIDTH 14.1 % (11.5-14.5)
[2019-05-23 08:39] LABS: ANION GAP 7 (8-16); BLOOD UREA NITROGEN 36 MG/DL (7-18); BUN/CREATININE RATIO 20.1 (5.4-32.0); CHLORIDE 103 MMOL/L (99-107); CREATININE 1.79 MG/DL (0.60-1.10); GLUCOSE 139 MG/DL (70-104); MAGNESIUM 1.9 MG/DL (1.5-2.4); PHOSPHORUS 2.7 MG/DL (2.3-4.5); POTASSIUM 4.5 MMOL/L (3.5-5.1); SODIUM 137 MMOL/L (135-145); TOTAL CARBON DIOXIDE 27.5 MMOL/L (24-32); eGFR 37 ML/MIN
[2019-05-23] MEDS: magnesium 4gm in 100ml NS 100 ML IV PRN (09:18)
[2019-05-23] MEDS ORDERED: docusate sodium 100mg/10ml UD cup NG SCH (09:48)
[2019-05-23 10:13] LABS: NUCLEATED RED BLOOD CELLS 12 /100WBC (0-0); PLATELET ESTIMATE NORMAL; TOTAL CELLS COUNTED 100
[2019-05-23 10:14] LABS: ANISOCYTOSIS 1+; POLYCHROMASIA 2+
[2019-05-23] MEDS: insulin regular, human 100 UNIT in normal saline 100ml IV soln 99 ML IV SCH ×4 (10:20→17:05)
[2019-05-23] MEDS ORDERED: acetaminophen 325mg tablet OGT PRN (10:58)
[2019-05-23] MEDS ORDERED: acetaminophen 325mg/10.15ml oral unit dose solution OGT PRN ×2 (10:59)
[2019-05-23] MEDS ORDERED: dextrose ORAL solution 15 GM/59 ML bottle OGT PRN ×2 (11:01)
[2019-05-23] MEDS ORDERED: mag hydrox/Alum hydrox/simeth 30ml oral suspension OGT PRN (11:01)
[2019-05-23] MEDS ORDERED: magnesium hydroxide 30ml (MOM) UD suspension OGT PRN (11:01)
[2019-05-23] MEDS ORDERED: HYDROcodone/acetaminophen 7.5MG/325MG per 15ml UD CUP OGT PRN (11:02)
[2019-05-23] MEDS: vancomycin/NS 1 GM ADD-VANTAGE 250 ML IV SCH (11:54)
[2019-05-23 12:49] LABS: PHOSPHORUS 2.8 MG/DL (2.3-4.5)
--- NOTE | 2019-05-23 13:51 | NUR ---
Notified Dr. Seth that the patient is not tolerating pulling 50 ml off with CVVH. States okay. Notified him that we are trying to meet zero and slowly increasing amount by 10 ml. Also requested albumin due to swelling in hands and legs. Received order for albumin 25% 100 ml IV Q6H for 3 days. Will continue to monitor.
[2019-05-23] MEDS: albumin (human) 25% 100ml IV 100 ML IV SCH ×2 (14:17→20:43)
[2019-05-23 14:40] LABS: BASOPHILS % (AUTO) 0 % (0-1); EOSINOPHILS % (AUTO) 0.1 % (0-6); HEMATOCRIT 24.9 % (42.0-52.0); HEMOGLOBIN 8.4 g/dl (14.0-17.9); LYMPHOCYTES # (AUTO) 1.9 X10'3 (1.1-4.8); LYMPHOCYTES % (AUTO) 8.6 % (21-51); MEAN CORPUSCULAR HEMOGLOBIN 31.1 PG (27.0-31.0); MEAN CORPUSCULAR HGB CONC 33.6 g/dL (33.0-36.5); MEAN CORPUSCULAR VOLUME 92.7 FL (78-98); MEAN PLATELET VOLUME 8.2 FL (7.4-10.4); MONOCYTES # (AUTO) 2.6 X10'3 (0-0.9); MONOCYTES % (AUTO) 12.2 % (2-12); NEUTROPHILS # (AUTO) 17.2 X10'3 (1.8-7.7); NEUTROPHILS % (AUTO) 79.1 % (42-75); PLATELET COUNT 206 X10'3 (140-440); RED BLOOD COUNT 2.69 X10'6 (4.70-6.10); WHITE BLOOD COUNT 21.7 X10'3 (4.5-11.0)
[2019-05-23 14:45] LABS: ANION GAP 6 (8-16); BLOOD UREA NITROGEN 34 MG/DL (7-18); BUN/CREATININE RATIO 19.5 (5.4-32.0); CHLORIDE 104 MMOL/L (99-107); CREATININE 1.74 MG/DL (0.60-1.10); GLUCOSE 161 MG/DL (70-104); MAGNESIUM 2.6 MG/DL (1.5-2.4); PHOSPHORUS 2.1 MG/DL (2.3-4.5); POTASSIUM 4.5 MMOL/L (3.5-5.1); SODIUM 137 MMOL/L (135-145); TOTAL CARBON DIOXIDE 27.1 MMOL/L (24-32); eGFR 39 ML/MIN
--- NOTE | 2019-05-23 17:30 | NUR ---
Received order from Dr. Pompa to discontinue heparin drip due to balloon pump our and start sales engagement manager order.
--- NOTE | 2019-05-23 17:45 | NUR ---
Received order from Dr. Alcaraz to start heparin 5000 units/ ml SQ Q12 hours
--- NOTE | 2019-05-23 18:20 | NUR ---
Problems reprioritized. Patient report given, questions answered & plan of care reviewed with Gisela MORALES.
--- NOTE | 2019-05-23 18:40 | NUR ---
I have received report and assumed care of pt, pt resting in bed rise and fall of chest cavity equile and symmetrical, CVVH in place, Levophed being titrated to keep MAP greater then [address] to keep MAP greater then 60 insulin drip titrated to keep glucose level 110-150. low does versed in place for sedation and fentanyl in place for pain control. all vasoactive medication transfusing via CVL pt opens eyes spontaneously, moves all extremitas and thrashes head from side to side with oral care, he does not make eye contact nor squeeze hand when asked.
[2019-05-23] MEDS: carVEDilol 3.125mg tablet OGT SCH (20:00)
[2019-05-23] MEDS: heparin, porcine 5000 units/ml vial SQ SCH (20:15)
[2019-05-23] MEDS: docusate sodium 100mg/10ml UD cup OGT SCH (20:15)
[2019-05-23 20:30] LABS: BASOPHILS % (AUTO) 0 % (0-1); EOSINOPHILS % (AUTO) 0 % (0-6); HEMATOCRIT 23.8 % (42.0-52.0); HEMOGLOBIN 7.9 g/dl (14.0-17.9); LYMPHOCYTES # (AUTO) 2.4 X10'3 (1.1-4.8); LYMPHOCYTES % (AUTO) 9.7 % (21-51); MEAN CORPUSCULAR HEMOGLOBIN 31.2 PG (27.0-31.0); MEAN CORPUSCULAR HGB CONC 33.2 g/dL (33.0-36.5); MEAN CORPUSCULAR VOLUME 93.9 FL (78-98); MONOCYTES # (AUTO) 3.1 X10'3 (0-0.9); MONOCYTES % (AUTO) 12.6 % (2-12); NEUTROPHILS # (AUTO) 18.9 X10'3 (1.8-7.7); NEUTROPHILS % (AUTO) 77.7 % (42-75); PLATELET COUNT 201 X10'3 (140-440); RED BLOOD COUNT 2.54 X10'6 (4.70-6.10); RED CELL DISTRIBUTION WIDTH 14.5 % (11.5-14.5); WHITE BLOOD COUNT 24.4 X10'3 (4.5-11.0)
[2019-05-23 20:32] LABS: ALBUMIN 2.6 G/DL (3.4-5.0); ANION GAP 3 (8-16); BLOOD UREA NITROGEN 30 MG/DL (7-18); BUN/CREATININE RATIO 19.9 (5.4-32.0); CHLORIDE 104 MMOL/L (99-107); CREATININE 1.51 MG/DL (0.60-1.10); GLUCOSE 127 MG/DL (70-104); MAGNESIUM 2.2 MG/DL (1.5-2.4); PHOSPHORUS 3.1 MG/DL (2.3-4.5); POTASSIUM 4.7 MMOL/L (3.5-5.1); SODIUM 137 MMOL/L (135-145); TOTAL CARBON DIOXIDE 29.7 MMOL/L (24-32); eGFR 46 ML/MIN
[2019-05-24] VITALS (30 sets, daily range): BP systolic 85–108; BP diastolic 45–65
[2019-05-24] MEDS: Duosol 4K/3 Ca (w/calcium) 5,000 ML HE SCH ×15 (00:08→23:00)
[2019-05-24] MEDS: DOBUTamine 2000 MCG/250ML BAG IV SCH ×3 (00:30→16:52)
[2019-05-24] MEDS: methylPREDNISolone sod succ/PF 40mg inj. IV SCH ×4 (02:21→19:47)
[2019-05-24] MEDS: metoclopramide 5 mg/ml inj IV SCH ×4 (02:21→19:47)
[2019-05-24] MEDS: albumin (human) 25% 100ml IV 100 ML IV SCH ×4 (02:22→19:48)
[2019-05-24] MEDS: mineral oil/petrolatum ophthal oint EACHEYE SCH ×4 (02:23→19:47)
[2019-05-24] MEDS: ipratropium/albuterol 3ml nebule NEB SCH ×6 (02:41→22:47)
[2019-05-24 02:58] LABS: BASOPHILS % (AUTO) 0 % (0-1); EOSINOPHILS % (AUTO) 0 % (0-6); HEMATOCRIT 22.9 % (42.0-52.0); HEMOGLOBIN 7.6 g/dl (14.0-17.9); LYMPHOCYTES % (AUTO) 9.5 % (21-51); MEAN CORPUSCULAR HEMOGLOBIN 31.5 PG (27.0-31.0); MEAN CORPUSCULAR HGB CONC 33.3 g/dL (33.0-36.5); MEAN CORPUSCULAR VOLUME 94.5 FL (78-98); MEAN PLATELET VOLUME 8.4 FL (7.4-10.4); MONOCYTES # (AUTO) 2.5 X10'3 (0-0.9); MONOCYTES % (AUTO) 11.5 % (2-12); NEUTROPHILS # (AUTO) 16.9 X10'3 (1.8-7.7); PLATELET COUNT 196 X10'3 (140-440); RED BLOOD COUNT 2.42 X10'6 (4.70-6.10); RED CELL DISTRIBUTION WIDTH 14.6 % (11.5-14.5); WHITE BLOOD COUNT 21.4 X10'3 (4.5-11.0)
[2019-05-24 03:00] LABS: PARTIAL THROMBOPLASTIN TIME 25 SECONDS (22-32)
[2019-05-24 03:02] LABS: ALANINE AMINOTRANSFERASE 45 U/L (12-78); ALBUMIN 2.9 G/DL (3.4-5.0); ALBUMIN/GLOBULIN RATIO 0.8 (1.1-1.5); ALKALINE PHOSPHATASE 215 IU/L (46-116); ANION GAP 5 (8-16); ASPARTATE AMINO TRANSFERASE 52 U/L (10-37); BILIRUBIN,TOTAL 1.5 MG/DL (0.1-1.0); BLOOD UREA NITROGEN 28 MG/DL (7-18); CALCIUM 8.4 MG/DL (8.5-10.1); CHLORIDE 103 MMOL/L (99-107); GLUCOSE 158 MG/DL (70-104); POTASSIUM 4.8 MMOL/L (3.5-5.1); SODIUM 137 MMOL/L (135-145); TOTAL PROTEIN 6.4 G/DL (6.4-8.2); eGFR 50 ML/MIN
[2019-05-24 03:51] LABS: ABG BASE EXCESS 2.2 mmol/L (-2.0-3.0); ABG HCO3 25.6 mmol/L (22.0-26.0); ABG OXYGEN SATURATION 97.7 % (95-98); ABG PCO2 (T) 33.5 mmHg (35.0-45.0); ABG PH (T) 7.499 (7.350-7.450); ABG PO2 (T) 99.6 mmHg (83-108); ALLEN'S TEST Positive; FCOHb 0.5 % (0.5-1.5); FO2Hb 97.2 % (94-100); MINUTE VOLUME 11 L/min; PATIENT TEMPERATURE 36.3; PEEP 5 cm H2O; RESPIRATORY RATE 18 b/min; RESPIRATORY RATE (OBSERVED) 20 b/min; TIDAL VOLUME 500 mL; TOTAL HEMOGLOBIN 8.1 G/dl (14.0-17.9)
[2019-05-24 03:56] LABS: NUCLEATED RED BLOOD CELLS 5 /100WBC (0-0); TOTAL CELLS COUNTED 100
[2019-05-24 03:57] LABS: ELLIPTOCYTES FEW; PLATELET ESTIMATE NORMAL; POLYCHROMASIA FEW; SCHISTOCYTES FEW
[2019-05-24 03:58] LABS: BURR CELLS 1+
[2019-05-24] MEDS: insulin regular, human 100 UNIT in normal saline 100ml IV soln 99 ML IV SCH ×4 (05:34→10:34)
--- NOTE | 2019-05-24 06:15 | NUR ---
report given to rec rn plan of care reviewed
[2019-05-24] MEDS: carVEDilol 3.125mg tablet OGT SCH ×2 (07:19→19:48)
[2019-05-24] MEDS: methylnaltrexone br 12mg/0.6ml inj***SubQ only SQ SCH (07:26)
[2019-05-24] MEDS: pantoprazole 40 MG vial IV SCH (07:28)
[2019-05-24] MEDS: heparin, porcine 5000 units/ml vial SQ SCH ×2 (07:30→19:47)
[2019-05-24] MEDS: docusate sodium 100mg/10ml UD cup OGT SCH ×2 (07:34→19:47)
[2019-05-24] MEDS: clopidogrel 75mg tablet OGT SCH (07:35)
[2019-05-24] MEDS: atorvastatin 20mg tablet OGT SCH (07:52)
[2019-05-24] MEDS: lactobacillus rhamnosus 10,000 MMU CELLS/CAPSULE PO SCH ×2 (07:52→19:48)
[2019-05-24] MEDS: aspirin 81mg tab.chew OGT SCH (07:52)
[2019-05-24 08:50] LABS: BASOPHILS % (AUTO) 0.1 % (0-1); EOSINOPHILS % (AUTO) 0 % (0-6); HEMATOCRIT 22.2 % (42.0-52.0); HEMOGLOBIN 7.5 g/dl (14.0-17.9); LYMPHOCYTES # (AUTO) 1.7 X10'3 (1.1-4.8); LYMPHOCYTES % (AUTO) 8.2 % (21-51); MEAN CORPUSCULAR HEMOGLOBIN 31.5 PG (27.0-31.0); MEAN CORPUSCULAR HGB CONC 33.8 g/dL (33.0-36.5); MEAN CORPUSCULAR VOLUME 93.1 FL (78-98); MEAN PLATELET VOLUME 8.1 FL (7.4-10.4); MONOCYTES # (AUTO) 2.1 X10'3 (0-0.9); MONOCYTES % (AUTO) 10.1 % (2-12); NEUTROPHILS % (AUTO) 81.6 % (42-75); PLATELET COUNT 190 X10'3 (140-440); RED BLOOD COUNT 2.38 X10'6 (4.70-6.10); RED CELL DISTRIBUTION WIDTH 14.5 % (11.5-14.5); WHITE BLOOD COUNT 20.8 X10'3 (4.5-11.0)
[2019-05-24 09:00] LABS: ALBUMIN 3.5 G/DL (3.4-5.0); ANION GAP 6 (8-16); BLOOD UREA NITROGEN 25 MG/DL (7-18); BUN/CREATININE RATIO 18.7 (5.4-32.0); CHLORIDE 103 MMOL/L (99-107); CREATININE 1.34 MG/DL (0.60-1.10); GLUCOSE 120 MG/DL (70-104); PHOSPHORUS 2.9 MG/DL (2.3-4.5); POTASSIUM 4.7 MMOL/L (3.5-5.1); SODIUM 138 MMOL/L (135-145); TOTAL CARBON DIOXIDE 29.3 MMOL/L (24-32); eGFR 52 ML/MIN
[2019-05-24] MEDS: cefepime 1GM in D5W 50mL IVPB IV SCH (09:06)
[2019-05-24 09:20] LABS: NUCLEATED RED BLOOD CELLS 12 /100WBC (0-0); TOTAL CELLS COUNTED 100
[2019-05-24] MEDS ORDERED: midodrine 5mg tablet PO ONE (09:20)
[2019-05-24 09:21] LABS: PLATELET ESTIMATE NORMAL; POLYCHROMASIA 1+
[2019-05-24] MEDS: NORepinephrine 8mg/ 250ml NS 250 ML IV SCH (09:53)
[2019-05-24] MEDS ORDERED: midazolam 100mg in NS 100ml 100 ML IV PRN (09:54)
[2019-05-24] MEDS: FENTANYL-0.9 % NACL/PF 100 ML IV PRN ×2 (10:34→23:23)
[2019-05-24] MEDS ORDERED: VANCOMYCIN LEVEL IV ONE (11:30)
[2019-05-24] MEDS: vancomycin/NS 1 GM ADD-VANTAGE 250 ML IV SCH (12:48)
--- NOTE | 2019-05-24 12:56 | NUR ---
follow up: No BM 8 days, continues to receive reglan, colace, and relistor. has hyperactive bowel sounds per bedside RN. Tube feedings are tolerated, GRV are within normal limits. Continue to follow Addendum: 05/24/19 at [address] Amended: Links added.
[2019-05-24 14:18] LABS: BASOPHILS % (AUTO) 0.1 % (0-1); EOSINOPHILS % (AUTO) 0 % (0-6); HEMATOCRIT 22.1 % (42.0-52.0); HEMOGLOBIN 7.3 g/dl (14.0-17.9); LYMPHOCYTES # (AUTO) 1.7 X10'3 (1.1-4.8); LYMPHOCYTES % (AUTO) 7.9 % (21-51); MEAN CORPUSCULAR HEMOGLOBIN 31.5 PG (27.0-31.0); MEAN CORPUSCULAR HGB CONC 33.3 g/dL (33.0-36.5); MEAN CORPUSCULAR VOLUME 94.6 FL (78-98); MEAN PLATELET VOLUME 8.2 FL (7.4-10.4); NEUTROPHILS # (AUTO) 18.1 X10'3 (1.8-7.7); PLATELET COUNT 200 X10'3 (140-440); RED BLOOD COUNT 2.33 X10'6 (4.70-6.10); RED CELL DISTRIBUTION WIDTH 14.6 % (11.5-14.5); WHITE BLOOD COUNT 21.9 X10'3 (4.5-11.0)
[2019-05-24 14:29] LABS: ALBUMIN 3.5 G/DL (3.4-5.0); ANION GAP 5 (8-16); BLOOD UREA NITROGEN 27 MG/DL (7-18); BUN/CREATININE RATIO 19.4 (5.4-32.0); CHLORIDE 103 MMOL/L (99-107); CREATININE 1.39 MG/DL (0.60-1.10); GLUCOSE 162 MG/DL (70-104); PHOSPHORUS 2.6 MG/DL (2.3-4.5); POTASSIUM 4.8 MMOL/L (3.5-5.1); SODIUM 138 MMOL/L (135-145); TOTAL CARBON DIOXIDE 29.9 MMOL/L (24-32); eGFR 50 ML/MIN
[2019-05-24 14:43] LABS: NUCLEATED RED BLOOD CELLS 5 /100WBC (0-0); TOTAL CELLS COUNTED 100
[2019-05-24 14:44] LABS: PLATELET ESTIMATE NORMAL
[2019-05-24 14:45] LABS: ANISOCYTOSIS 1+; EOSINOPHILS % (MANUAL) 0 % (0-6); POLYCHROMASIA 1+
[2019-05-24 14:46] LABS: BURR CELLS FEW; ELLIPTOCYTES 1+; TEAR DROP CELLS FEW
[2019-05-24 14:47] LABS: TOXIC GRANULATION 1+
[2019-05-24] MEDS ORDERED: midodrine tablet 2.5 MG TABLET PO SCH (16:00)
[2019-05-24] MEDS: normal saline 1000ml 1,000 ML IV SCH (16:15)
[2019-05-24] MEDS: midodrine 5mg tablet OGT SCH ×2 (16:15→23:22)
--- NOTE | 2019-05-24 18:15 | NUR ---
Patient in room ICU 2038. I have received report from Ingrid MORALES and had the opportunity to ask questions and assume patient care.
--- NOTE | 2019-05-24 18:17 | NUR ---
Problems reprioritized. Patient report given, questions answered & plan of care reviewed with Cassi persaud.
--- NOTE | 2019-05-24 18:20 | NUR ---
received report that the cb Addendum: 05/24/19 at 1844 by Cassi Hurtado RN cvvh filter had a big cot and was clotted through the pigtail. filter due to be changed at 0500. attempted to contact full stack python developer dialysis nurse but there was no answer.
--- NOTE | 2019-05-24 18:44 | NUR ---
cvvh machine clotted off. attempted to call oracle fusion consultant dialysis nurse again, still no answer. will continue to monitor.
--- NOTE | 2019-05-24 18:55 | NUR ---
spoke with Carol the dialysis nurse. Carol rn spoke with Md Seth. cvvh to resume tomorrow morning
--- NOTE | 2019-05-24 19:30 | NUR ---
pt is intubated, alert, not following commands. pt had ccvh running, however the machine is currently down until morning. lung sounds are course and diminished throughout, equal bilateral chest rise and fall. bowel sounds are present in all 4 quadrants but are hypoactive. no bm present Relistor was administered and pt is receiving colace. pt is on levophed and an insulin drip. heels elbows coccyx intact blanchable free from breakdown. vital signs stable. will continue to monitor.
[2019-05-24 20:15] LABS: BASOPHILS % (AUTO) 0.2 % (0-1); EOSINOPHILS % (AUTO) 0 % (0-6); HEMOGLOBIN 8.8 g/dl (14.0-17.9); LYMPHOCYTES # (AUTO) 1.6 X10'3 (1.1-4.8); LYMPHOCYTES % (AUTO) 6.4 % (21-51); MEAN CORPUSCULAR HEMOGLOBIN 30.9 PG (27.0-31.0); MEAN CORPUSCULAR HGB CONC 33.7 g/dL (33.0-36.5); MEAN CORPUSCULAR VOLUME 91.7 FL (78-98); MEAN PLATELET VOLUME 8.4 FL (7.4-10.4); MONOCYTES % (AUTO) 8.2 % (2-12); NEUTROPHILS # (AUTO) 20.9 X10'3 (1.8-7.7); NEUTROPHILS % (AUTO) 85.2 % (42-75); PLATELET COUNT 181 X10'3 (140-440); RED BLOOD COUNT 2.84 X10'6 (4.70-6.10); RED CELL DISTRIBUTION WIDTH 15.6 % (11.5-14.5); WHITE BLOOD COUNT 24.5 X10'3 (4.5-11.0)
[2019-05-24 20:26] LABS: ALBUMIN 3.7 G/DL (3.4-5.0); ANION GAP 7 (8-16); BLOOD UREA NITROGEN 30 MG/DL (7-18); CHLORIDE 103 MMOL/L (99-107); GLUCOSE 136 MG/DL (70-104); MAGNESIUM 1.9 MG/DL (1.5-2.4); PHOSPHORUS 2.9 MG/DL (2.3-4.5); SODIUM 137 MMOL/L (135-145); TOTAL CARBON DIOXIDE 26.6 MMOL/L (24-32); eGFR 46 ML/MIN
[2019-05-24 20:38] LABS: NUCLEATED RED BLOOD CELLS 20 /100WBC (0-0); TOTAL CELLS COUNTED 100
[2019-05-24 20:39] LABS: PLATELET ESTIMATE NORMAL
[2019-05-24 20:40] LABS: ANISOCYTOSIS 1+; BURR CELLS 5; ELLIPTOCYTES FEW; LARGE PLATELETS FEW; POLYCHROMASIA FEW
[2019-05-24] MEDS: magnesium 4gm in 100ml NS 100 ML IV PRN ×2 (21:45→21:49)
[2019-05-25] VITALS (23 sets, daily range): BP systolic 95–133; BP diastolic 30–68
[2019-05-25] MEDS: Duosol 4K/3 Ca (w/calcium) 5,000 ML HE SCH ×5 (00:15→05:15)
[2019-05-25] MEDS: DOBUTamine 2000 MCG/250ML BAG IV SCH (01:44)
[2019-05-25] MEDS: methylPREDNISolone sod succ/PF 40mg inj. IV SCH ×4 (01:44→19:10)
[2019-05-25] MEDS: albumin (human) 25% 100ml IV 100 ML IV SCH ×4 (01:44→19:10)
[2019-05-25] MEDS: metoclopramide 5 mg/ml inj IV SCH ×4 (01:44→19:10)
[2019-05-25] MEDS: mineral oil/petrolatum ophthal oint EACHEYE SCH ×4 (01:44→19:10)
[2019-05-25 02:16] LABS: BASOPHILS % (AUTO) 0.1 % (0-1); EOSINOPHILS % (AUTO) 0 % (0-6); HEMATOCRIT 25.2 % (42.0-52.0); HEMOGLOBIN 8.4 g/dl (14.0-17.9); LYMPHOCYTES # (AUTO) 1.6 X10'3 (1.1-4.8); LYMPHOCYTES % (AUTO) 6.8 % (21-51); MEAN CORPUSCULAR HEMOGLOBIN 30.9 PG (27.0-31.0); MEAN CORPUSCULAR HGB CONC 33.3 g/dL (33.0-36.5); MEAN CORPUSCULAR VOLUME 92.8 FL (78-98); MEAN PLATELET VOLUME 8.2 FL (7.4-10.4); MONOCYTES % (AUTO) 8.5 % (2-12); NEUTROPHILS # (AUTO) 19.6 X10'3 (1.8-7.7); NEUTROPHILS % (AUTO) 84.6 % (42-75); PLATELET COUNT 184 X10'3 (140-440); RED BLOOD COUNT 2.72 X10'6 (4.70-6.10); RED CELL DISTRIBUTION WIDTH 15.7 % (11.5-14.5); WHITE BLOOD COUNT 23.2 X10'3 (4.5-11.0)
[2019-05-25 02:24] LABS: PARTIAL THROMBOPLASTIN TIME 29 SECONDS (22-32)
[2019-05-25 02:25] LABS: ALANINE AMINOTRANSFERASE 100 U/L (12-78); ALBUMIN 3.8 G/DL (3.4-5.0); ALBUMIN/GLOBULIN RATIO 1.4 (1.1-1.5); ALKALINE PHOSPHATASE 231 IU/L (46-116); ANION GAP 7 (8-16); ASPARTATE AMINO TRANSFERASE 140 U/L (10-37); BILIRUBIN,TOTAL 2.3 MG/DL (0.1-1.0); BLOOD UREA NITROGEN 38 MG/DL (7-18); BUN/CREATININE RATIO 19.5 (5.4-32.0); CALCIUM 8.5 MG/DL (8.5-10.1); CHLORIDE 103 MMOL/L (99-107); CREATININE 1.95 MG/DL (0.60-1.10); GLUCOSE 142 MG/DL (70-104); PHOSPHORUS 3.3 MG/DL (2.3-4.5); POTASSIUM 5.3 MMOL/L (3.5-5.1); SODIUM 137 MMOL/L (135-145); TOTAL CARBON DIOXIDE 27.5 MMOL/L (24-32); TOTAL PROTEIN 6.5 G/DL (6.4-8.2); eGFR 34 ML/MIN
[2019-05-25] MEDS: ipratropium/albuterol 3ml nebule NEB SCH ×6 (02:40→22:42)
[2019-05-25 02:42] LABS: NUCLEATED RED BLOOD CELLS 24 /100WBC (0-0); TOTAL CELLS COUNTED 100
[2019-05-25 02:43] LABS: PLATELET ESTIMATE NORMAL; POLYCHROMASIA 1+
[2019-05-25 02:44] LABS: BURR CELLS 1+; LARGE PLATELETS FEW
[2019-05-25 04:26] LABS: ABG BASE EXCESS 2.1 mmol/L (-2.0-3.0); ABG HCO3 25.8 mmol/L (22.0-26.0); ABG OXYGEN SATURATION 96.1 % (95-98); ABG PCO2 (T) 37.3 mmHg (35.0-45.0); ABG PH (T) 7.459 (7.350-7.450); ABG PO2 (T) 86.4 mmHg (83-108); FCOHb 0.3 % (0.5-1.5); FMetHb 0.3 % (0.3-1.12); FO2Hb 95.5 % (94-100); MINUTE VOLUME 9 L/min; PATIENT TEMPERATURE 37.7; PEEP 5 cm H2O; RESPIRATORY RATE 18 b/min; RESPIRATORY RATE (OBSERVED) 18 b/min; TIDAL VOLUME 500 mL; TOTAL HEMOGLOBIN 8.7 G/dl (14.0-17.9)
[2019-05-25] MEDS: cefepime 1GM in D5W 50mL IVPB IV SCH (07:30)
[2019-05-25] MEDS: atorvastatin 20mg tablet OGT SCH (07:30)
[2019-05-25] MEDS: docusate sodium 100mg/10ml UD cup OGT SCH ×2 (07:30→19:10)
[2019-05-25] MEDS: pantoprazole 40 MG vial IV SCH (07:30)
[2019-05-25] MEDS: heparin, porcine 5000 units/ml vial SQ SCH ×2 (07:30→19:11)
[2019-05-25] MEDS: aspirin 81mg tab.chew OGT SCH (07:31)
[2019-05-25] MEDS: carVEDilol 3.125mg tablet OGT SCH ×2 (07:31→19:11)
[2019-05-25] MEDS: clopidogrel 75mg tablet OGT SCH (07:31)
[2019-05-25] MEDS: lactobacillus rhamnosus 10,000 MMU CELLS/CAPSULE PO SCH ×2 (07:31→19:10)
[2019-05-25] MEDS: midodrine 5mg tablet OGT SCH ×3 (07:31→23:17)
[2019-05-25 08:36] LABS: BASOPHILS % (AUTO) 0.1 % (0-1); EOSINOPHILS % (AUTO) 0 % (0-6); HEMATOCRIT 25.5 % (42.0-52.0); HEMOGLOBIN 8.5 g/dl (14.0-17.9); LYMPHOCYTES # (AUTO) 1.6 X10'3 (1.1-4.8); LYMPHOCYTES % (AUTO) 6.6 % (21-51); MEAN CORPUSCULAR HEMOGLOBIN 31.3 PG (27.0-31.0); MEAN CORPUSCULAR HGB CONC 33.5 g/dL (33.0-36.5); MEAN CORPUSCULAR VOLUME 93.3 FL (78-98); MEAN PLATELET VOLUME 8.4 FL (7.4-10.4); MONOCYTES % (AUTO) 8.3 % (2-12); NEUTROPHILS # (AUTO) 20.6 X10'3 (1.8-7.7); PLATELET COUNT 193 X10'3 (140-440); RED BLOOD COUNT 2.73 X10'6 (4.70-6.10); WHITE BLOOD COUNT 24.3 X10'3 (4.5-11.0)
[2019-05-25 08:38] LABS: ALBUMIN 4.1 G/DL (3.4-5.0); ANION GAP 6 (8-16); BLOOD UREA NITROGEN 51 MG/DL (7-18); BUN/CREATININE RATIO 21.4 (5.4-32.0); CHLORIDE 104 MMOL/L (99-107); CREATININE 2.38 MG/DL (0.60-1.10); GLUCOSE 124 MG/DL (70-104); MAGNESIUM 2.7 MG/DL (1.5-2.4); PHOSPHORUS 3.5 MG/DL (2.3-4.5); POTASSIUM 5.1 MMOL/L (3.5-5.1); SODIUM 137 MMOL/L (135-145); TOTAL CARBON DIOXIDE 26.7 MMOL/L (24-32); eGFR 27 ML/MIN
[2019-05-25 09:18] LABS: NUCLEATED RED BLOOD CELLS 18 /100WBC (0-0); TOTAL CELLS COUNTED 100
[2019-05-25 09:19] LABS: ANISOCYTOSIS 2+; PLATELET ESTIMATE NORMAL
[2019-05-25 09:20] LABS: POLYCHROMASIA 2+
[2019-05-25] MEDS: insulin regular, human 100 UNIT in normal saline 100ml IV soln 99 ML IV SCH ×4 (09:53→14:21)
[2019-05-25] MEDS: bicarb dialysis sol 2K+/3 Ca2+ 5,000 ML HE SCH ×9 (10:00→22:42)
[2019-05-25] MEDS: dexmedetomidin/NS 400mcg/100ml 100 ML IV SCH ×2 (10:23→14:33)
[2019-05-25] MEDS: NORepinephrine 8mg/ 250ml NS 250 ML IV SCH ×2 (11:56→18:08)
[2019-05-25] MEDS: VANCOmycin 1250MG/NS 250ml Bag 250 ML IV SCH (12:34)
[2019-05-25 14:47] LABS: BASOPHILS % (AUTO) 0.1 % (0-1); EOSINOPHILS % (AUTO) 0 % (0-6); HEMATOCRIT 24.7 % (42.0-52.0); HEMOGLOBIN 8.2 g/dl (14.0-17.9); LYMPHOCYTES # (AUTO) 1.2 X10'3 (1.1-4.8); LYMPHOCYTES % (AUTO) 4.9 % (21-51); MEAN CORPUSCULAR HEMOGLOBIN 31.3 PG (27.0-31.0); MEAN CORPUSCULAR HGB CONC 33.4 g/dL (33.0-36.5); MEAN CORPUSCULAR VOLUME 93.7 FL (78-98); MEAN PLATELET VOLUME 8.1 FL (7.4-10.4); MONOCYTES # (AUTO) 1.7 X10'3 (0-0.9); MONOCYTES % (AUTO) 6.7 % (2-12); NEUTROPHILS # (AUTO) 22.7 X10'3 (1.8-7.7); NEUTROPHILS % (AUTO) 88.3 % (42-75); PLATELET COUNT 187 X10'3 (140-440); RED BLOOD COUNT 2.64 X10'6 (4.70-6.10); RED CELL DISTRIBUTION WIDTH 15.8 % (11.5-14.5)
[2019-05-25 14:54] LABS: WHITE BLOOD COUNT 25.7 X10'3 (4.5-11.0)
[2019-05-25 14:59] LABS: ALBUMIN 4.2 G/DL (3.4-5.0); ANION GAP 9 (8-16); BLOOD UREA NITROGEN 50 MG/DL (7-18); BUN/CREATININE RATIO 24.3 (5.4-32.0); CHLORIDE 102 MMOL/L (99-107); CREATININE 2.06 MG/DL (0.60-1.10); GLUCOSE 171 MG/DL (70-104); MAGNESIUM 2.6 MG/DL (1.5-2.4); PHOSPHORUS 3.1 MG/DL (2.3-4.5); POTASSIUM 4.9 MMOL/L (3.5-5.1); SODIUM 138 MMOL/L (135-145); TOTAL CARBON DIOXIDE 26.7 MMOL/L (24-32); eGFR 32 ML/MIN
[2019-05-25 15:16] LABS: NUCLEATED RED BLOOD CELLS 12 /100WBC (0-0); TOTAL CELLS COUNTED 100
[2019-05-25 15:18] LABS: ANISOCYTOSIS 2+; PLATELET ESTIMATE NORMAL; POLYCHROMASIA 2+
--- NOTE | 2019-05-25 18:34 | NUR ---
Patient in room ICU 2038. I have received report from everett persaud and had the opportunity to ask questions and assume patient care.
--- NOTE | 2019-05-25 19:00 | NUR ---
pt is intubated, alert, not following commands. pt has ccvh running,goal is to get 50cc off per hour. lung sounds are course and diminished throughout, equal bilateral chest rise and fall. bowel sounds are present in all 4 quadrants but are hypoactive. no bm present pt is on levophed and an insulin drip. heels elbows coccyx intact blanchable free from breakdown. vital signs stable. will continue to monitor.
[2019-05-25 20:30] LABS: BASOPHILS # (AUTO) 0.1 X10'3 (0-0.2); EOSINOPHILS % (AUTO) 0 % (0-6); HEMOGLOBIN 7.8 g/dl (14.0-17.9); LYMPHOCYTES % (AUTO) 5.5 % (21-51)
[2019-05-25 20:32] LABS: BASOPHILS % (AUTO) 0.4 % (0-1); HEMATOCRIT 23.6 % (42.0-52.0); LYMPHOCYTES # (AUTO) 1.4 X10'3 (1.1-4.8); MEAN CORPUSCULAR HEMOGLOBIN 31.3 PG (27.0-31.0); MEAN CORPUSCULAR HGB CONC 33.2 g/dL (33.0-36.5); MEAN CORPUSCULAR VOLUME 94.5 FL (78-98); MEAN PLATELET VOLUME 8.3 FL (7.4-10.4); MONOCYTES # (AUTO) 1.2 X10'3 (0-0.9); MONOCYTES % (AUTO) 5.1 % (2-12); NEUTROPHILS # (AUTO) 21.8 X10'3 (1.8-7.7); PLATELET COUNT 167 X10'3 (140-440); RED CELL DISTRIBUTION WIDTH 15.5 % (11.5-14.5); WHITE BLOOD COUNT 24.5 X10'3 (4.5-11.0)
[2019-05-25 20:40] LABS: ALBUMIN 4.6 G/DL (3.4-5.0); ANION GAP 7 (8-16); BLOOD UREA NITROGEN 51 MG/DL (7-18); BUN/CREATININE RATIO 23.7 (5.4-32.0); CALCIUM 8.3 MG/DL (8.5-10.1); CHLORIDE 101 MMOL/L (99-107); CREATININE 2.15 MG/DL (0.60-1.10); GLUCOSE 163 MG/DL (70-104); PHOSPHORUS 3.2 MG/DL (2.3-4.5); POTASSIUM 4.8 MMOL/L (3.5-5.1); SODIUM 136 MMOL/L (135-145); TOTAL CARBON DIOXIDE 27.9 MMOL/L (24-32); eGFR 30 ML/MIN
[2019-05-25 20:55] LABS: BANDS% (MANUAL) 1 % (0-10); HYPOCHROMASIA 1+; LYMPHOCYTES % (MANUAL) 5 % (21-51); METAMYLEOCYTES% (MANUAL) 1 % (0-0); MONOCYTES % (MANUAL) 4 % (2-12); NEUTROPHILS % (MANUAL) 89 % (42-75); NUCLEATED RED BLOOD CELLS 10 /100WBC (0-0); PLATELET ESTIMATE NORMAL; POLYCHROMASIA 1+; TOTAL CELLS COUNTED 100
[2019-05-26] VITALS (31 sets, daily range): BP systolic 90–117; BP diastolic 42–63
[2019-05-26] MEDS: methylPREDNISolone sod succ/PF 40mg inj. IV SCH ×4 (02:15→20:09)
[2019-05-26] MEDS: mineral oil/petrolatum ophthal oint EACHEYE SCH ×4 (02:15→20:00)
[2019-05-26] MEDS: metoclopramide 5 mg/ml inj IV SCH ×4 (02:15→20:08)
[2019-05-26] MEDS: albumin (human) 25% 100ml IV 100 ML IV SCH ×2 (02:15→07:23)
[2019-05-26] MEDS: ipratropium/albuterol 3ml nebule NEB SCH ×6 (02:33→22:54)
[2019-05-26] MEDS: bicarb dialysis sol 2K+/3 Ca2+ 5,000 ML HE SCH ×16 (03:27→22:00)
[2019-05-26 03:28] LABS: PARTIAL THROMBOPLASTIN TIME 31 SECONDS (22-32)
[2019-05-26 03:32] LABS: ALANINE AMINOTRANSFERASE 234 U/L (12-78); ALBUMIN 4.4 G/DL (3.4-5.0); ALKALINE PHOSPHATASE 185 IU/L (46-116); ANION GAP 7 (8-16); ASPARTATE AMINO TRANSFERASE 285 U/L (10-37); BILIRUBIN,TOTAL 3.1 MG/DL (0.1-1.0); BLOOD UREA NITROGEN 47 MG/DL (7-18); BUN/CREATININE RATIO 23.6 (5.4-32.0); CALCIUM 8.4 MG/DL (8.5-10.1); CHLORIDE 101 MMOL/L (99-107); CREATININE 1.99 MG/DL (0.60-1.10); GLUCOSE 163 MG/DL (70-104); MAGNESIUM 2.3 MG/DL (1.5-2.4); PHOSPHORUS 3.7 MG/DL (2.3-4.5); SODIUM 136 MMOL/L (135-145); TOTAL PROTEIN 6.6 G/DL (6.4-8.2); TRIGLYCERIDES 49 MG/DL (20-135); eGFR 33 ML/MIN
[2019-05-26 03:34] LABS: BASOPHILS % (AUTO) 0.2 % (0-1); EOSINOPHILS % (AUTO) 0 % (0-6); HEMATOCRIT 24.2 % (42.0-52.0); LYMPHOCYTES # (AUTO) 1.6 X10'3 (1.1-4.8); LYMPHOCYTES % (AUTO) 6.1 % (21-51); MEAN CORPUSCULAR HEMOGLOBIN 31.3 PG (27.0-31.0); MEAN CORPUSCULAR VOLUME 94.9 FL (78-98); MEAN PLATELET VOLUME 8.2 FL (7.4-10.4); MONOCYTES # (AUTO) 2.3 X10'3 (0-0.9); MONOCYTES % (AUTO) 9.1 % (2-12); NEUTROPHILS # (AUTO) 21.6 X10'3 (1.8-7.7); NEUTROPHILS % (AUTO) 84.6 % (42-75); PLATELET COUNT 167 X10'3 (140-440); RED BLOOD COUNT 2.55 X10'6 (4.70-6.10); RED CELL DISTRIBUTION WIDTH 15.4 % (11.5-14.5)
[2019-05-26] MEDS: dexmedetomidin/NS 400mcg/100ml 100 ML IV SCH ×3 (03:36→13:31)
[2019-05-26 03:43] LABS: WHITE BLOOD COUNT 25.5 X10'3 (4.5-11.0)
[2019-05-26 04:00] LABS: ABG BASE EXCESS 2.6 mmol/L (-2.0-3.0); ABG HCO3 25.4 mmol/L (22.0-26.0); ABG OXYGEN SATURATION 97.5 % (95-98); ABG PH (T) 7.517 (7.350-7.450); ABG PO2 (T) 98.3 mmHg (83-108); ALLEN'S TEST Positive; FCOHb 0.1 % (0.5-1.5); FMetHb 0.3 % (0.3-1.12); FO2Hb 97.1 % (94-100); MINUTE VOLUME 10 L/min; PATIENT TEMPERATURE 37.1; PEEP 5 cm H2O; RESPIRATORY RATE 16 b/min; RESPIRATORY RATE (OBSERVED) 18 b/min; TIDAL VOLUME 500 mL; TOTAL HEMOGLOBIN 8.8 G/dl (14.0-17.9)
[2019-05-26 04:07] LABS: BANDS% (MANUAL) 1 % (0-10); NEUTROPHILS % (MANUAL) 89 % (42-75); TOTAL CELLS COUNTED 100
[2019-05-26 04:08] LABS: HYPOCHROMASIA 1+; LYMPHOCYTES % (MANUAL) 7 % (21-51); MONOCYTES % (MANUAL) 3 % (2-12); NUCLEATED RED BLOOD CELLS 17 /100WBC (0-0); PLATELET ESTIMATE NORMAL; POLYCHROMASIA 1+
[2019-05-26 04:09] LABS: ELLIPTOCYTES FEW
--- NOTE | 2019-05-26 05:16 | NUR ---
pt woke up and was attempting to sit up. pt is alert and following commands. pt nods appropriately to yes no questions. pt able to squeeze my hand and move his feet on command. pt is still resistive to care and is now throwing his head from side to side pulling on the et tube. educated pt on the purpose of et tube but patient continues to thrash in the bed. precedex increased. will continue to monitor
--- NOTE | 2019-05-26 06:31 | NUR ---
Patient in room ICU 2038. I have received report from ANDREW Ye and had the opportunity to ask questions and assume patient care.
[2019-05-26] MEDS: aspirin 81mg tab.chew OGT SCH (07:19)
[2019-05-26] MEDS: midodrine 5mg tablet OGT SCH ×2 (07:19→16:06)
[2019-05-26] MEDS: atorvastatin 20mg tablet OGT SCH (07:20)
[2019-05-26] MEDS: lactobacillus rhamnosus 10,000 MMU CELLS/CAPSULE PO SCH ×2 (07:20→20:00)
[2019-05-26] MEDS: clopidogrel 75mg tablet OGT SCH (07:20)
[2019-05-26] MEDS: heparin, porcine 5000 units/ml vial SQ SCH ×2 (07:22→20:08)
[2019-05-26] MEDS: methylnaltrexone br 12mg/0.6ml inj***SubQ only SQ SCH (07:22)
[2019-05-26] MEDS: pantoprazole 40 MG vial IV SCH (07:23)
[2019-05-26] MEDS: cefepime 1GM in D5W 50mL IVPB IV SCH (07:24)
[2019-05-26] MEDS: carVEDilol 3.125mg tablet OGT SCH ×2 (08:00→20:00)
[2019-05-26] MEDS: docusate sodium 100mg/10ml UD cup OGT SCH ×2 (08:22→20:00)
[2019-05-26 08:58] LABS: BASOPHILS # (AUTO) 0.1 X10'3 (0-0.2); BASOPHILS % (AUTO) 0.2 % (0-1); EOSINOPHILS % (AUTO) 0.1 % (0-6); HEMATOCRIT 23.3 % (42.0-52.0); HEMOGLOBIN 7.8 g/dl (14.0-17.9); LYMPHOCYTES # (AUTO) 1.5 X10'3 (1.1-4.8); LYMPHOCYTES % (AUTO) 6.1 % (21-51); MEAN CORPUSCULAR HGB CONC 33.6 g/dL (33.0-36.5); MEAN CORPUSCULAR VOLUME 95.3 FL (78-98); MEAN PLATELET VOLUME 8.5 FL (7.4-10.4); MONOCYTES # (AUTO) 2.3 X10'3 (0-0.9); MONOCYTES % (AUTO) 9.2 % (2-12); NEUTROPHILS # (AUTO) 21.4 X10'3 (1.8-7.7); NEUTROPHILS % (AUTO) 84.4 % (42-75); PLATELET COUNT 153 X10'3 (140-440); RED BLOOD COUNT 2.44 X10'6 (4.70-6.10); RED CELL DISTRIBUTION WIDTH 15.8 % (11.5-14.5)
[2019-05-26 09:06] LABS: ALBUMIN 4.4 G/DL (3.4-5.0); ANION GAP 10 (8-16); BLOOD UREA NITROGEN 44 MG/DL (7-18); BUN/CREATININE RATIO 24.6 (5.4-32.0); CALCIUM 8.6 MG/DL (8.5-10.1); CHLORIDE 101 MMOL/L (99-107); CREATININE 1.79 MG/DL (0.60-1.10); GLUCOSE 203 MG/DL (70-104); PHOSPHORUS 3.3 MG/DL (2.3-4.5); POTASSIUM 4.8 MMOL/L (3.5-5.1); SODIUM 137 MMOL/L (135-145); TOTAL CARBON DIOXIDE 26.2 MMOL/L (24-32); eGFR 37 ML/MIN
[2019-05-26] MEDS ORDERED: midazolam 2 mg/2 ml injection IV PRN (09:20)
[2019-05-26] MEDS ORDERED: fentaNYL/PF 50MCG/1 ML 2ML syringe IV PRN (09:20)
[2019-05-26] MEDS ORDERED: LIDOcaine 1% (10mg/ml) 2ml vial SQ ONE (09:20)
[2019-05-26] MEDS ORDERED: heparin 1,000 units/ml 10ml inj ICATH ONE (09:20)
--- NOTE | 2019-05-26 09:20 | NUR ---
Pt taken to angio for TDC placement
[2019-05-26] MEDS ORDERED: LIDOcaine 1%/PF 5ML 10 MG/ML VIAL ONE (09:27)
[2019-05-26] MEDS ORDERED: midazolam 2 mg/2 ml injection ONE (09:27)
[2019-05-26] MEDS ORDERED: heparin 1,000unit/ml 10ml vial 10 ML ONE (09:27)
[2019-05-26 09:28] LABS: NUCLEATED RED BLOOD CELLS 18 /100WBC (0-0); PLATELET ESTIMATE NORMAL; TOTAL CELLS COUNTED 100
[2019-05-26] MEDS ORDERED: fentaNYL/PF 50MCG/1 ML 2ML syringe ONE (09:28)
[2019-05-26 09:29] LABS: BURR CELLS FEW; HYPOCHROMASIA 1+; POLYCHROMASIA 1+; SCHISTOCYTES FEW
[2019-05-26 09:31] LABS: WHITE BLOOD COUNT 25.3 X10'3 (4.5-11.0)
--- NOTE | 2019-05-26 10:45 | NUR ---
Pt back from angio, VSS
--- NOTE | 2019-05-26 10:52 | NUR ---
Reassessment: Pt on CVVH currently NPO for TDC today. Previously tolerating TF at goal. No BM yet this admit 8 days receiving colace, relistor, and reglan; OK to start mineral oil enemas today per MD. Elevated liver enzymes pending ammonia and gallbladder ultrasound per MD. Will continue to monitor. Recommend: 1. OGTF using Vital High Protein at 75 ml/hr to provide total volume of 1800 ml, 1800 cals, 158g protein and 1512ml water. Initiate at 20ml/hr and advance 20ml Q8 to goal as tolerated. 2. prealbumin q Thursday and , daily weights 3. additional water flush per light out examiner; Na 135 4. multiple routine bowel care; no BM 8 days; enemas per MD 5. When extubated and alert needs written and verbal DM education, A1c is 11.6 Addendum: 05/26/19 at [address] Amended: Links added.
[2019-05-26] MEDS: VANCOmycin 1250MG/NS 250ml Bag 250 ML IV SCH (11:51)
[2019-05-26 12:33] LABS: BASOPHILS % (AUTO) 0.1 % (0-1); EOSINOPHILS % (AUTO) 0 % (0-6); LYMPHOCYTES # (AUTO) 1.2 X10'3 (1.1-4.8); LYMPHOCYTES % (AUTO) 6.4 % (21-51); MEAN CORPUSCULAR HEMOGLOBIN 31.8 PG (27.0-31.0); MEAN CORPUSCULAR HGB CONC 33.1 g/dL (33.0-36.5); MEAN PLATELET VOLUME 8.7 FL (7.4-10.4); MONOCYTES # (AUTO) 1.2 X10'3 (0-0.9); MONOCYTES % (AUTO) 6.2 % (2-12); NEUTROPHILS # (AUTO) 16.6 X10'3 (1.8-7.7); NEUTROPHILS % (AUTO) 87.3 % (42-75); PLATELET COUNT 143 X10'3 (140-440); RED BLOOD COUNT 2.02 X10'6 (4.70-6.10); RED CELL DISTRIBUTION WIDTH 16.1 % (11.5-14.5)
[2019-05-26 12:50] LABS: HEMATOCRIT 19.4 % (42.0-52.0); HEMOGLOBIN 6.4 g/dl (14.0-17.9)
[2019-05-26] MEDS: NORepinephrine 8mg/ 250ml NS 250 ML IV SCH (13:31)
--- NOTE | 2019-05-26 14:20 | NUR ---
Too catheter removed from R groin around 1200 while dialysis RNs were setting up CVVH machine. Pressure held for approx 10 min until no bleeding present. Induced moderate pressure around puncture site before dressing to ensure bleeding had stopped. No bleeding at this time. Site rechecked 10 min later and was CDI. Within next 10 min, was notified by buffing and polishing wheel repairer that pt's entire bed was saturated in blood. ANDREW Delatorre immediately held pressure on groin site with gauze. BP low 60s/30s. All other vitals stable. Levophed temporarily increased to max dose, BP slowly coming back up. H/H drawn with critical levels reported. Dr. Seth notified and ordered 2 units PRBCs to be transfused immediately. Pt coughs aggressively often, possibly dislodged clot that had formed, ETT also out 6 cm. RT notified and tube was advanced back to 24cm. Pressure held on groin site for 20-30 min. Site assessed frequently. No further issues.
[2019-05-26 15:13] LABS: ALBUMIN 3.8 G/DL (3.4-5.0); ANION GAP 8 (8-16); BLOOD UREA NITROGEN 49 MG/DL (7-18); BUN/CREATININE RATIO 23.8 (5.4-32.0); CALCIUM 8.1 MG/DL (8.5-10.1); CHLORIDE 104 MMOL/L (99-107); CREATININE 2.06 MG/DL (0.60-1.10); GLUCOSE 154 MG/DL (70-104); PHOSPHORUS 3.2 MG/DL (2.3-4.5); POTASSIUM 4.4 MMOL/L (3.5-5.1); SODIUM 138 MMOL/L (135-145); eGFR 32 ML/MIN
[2019-05-26 15:30] LABS: BASOPHILS % (AUTO) 0.1 % (0-1); EOSINOPHILS % (AUTO) 0 % (0-6); HEMOGLOBIN 7.2 g/dl (14.0-17.9); LYMPHOCYTES # (AUTO) 1.3 X10'3 (1.1-4.8); LYMPHOCYTES % (AUTO) 5.5 % (21-51); MEAN CORPUSCULAR HEMOGLOBIN 31.4 PG (27.0-31.0); MEAN CORPUSCULAR HGB CONC 33.3 g/dL (33.0-36.5); MEAN CORPUSCULAR VOLUME 94.5 FL (78-98); MEAN PLATELET VOLUME 8.3 FL (7.4-10.4); MONOCYTES % (AUTO) 8.6 % (2-12); NEUTROPHILS # (AUTO) 19.7 X10'3 (1.8-7.7); NEUTROPHILS % (AUTO) 85.8 % (42-75); PLATELET COUNT 155 X10'3 (140-440); RED BLOOD COUNT 2.28 X10'6 (4.70-6.10); RED CELL DISTRIBUTION WIDTH 14.9 % (11.5-14.5)
[2019-05-26 15:33] LABS: HEMATOCRIT 21.6 % (42.0-52.0)
[2019-05-26] MEDS: normal saline 1000ml 1,000 ML IV SCH (16:15)
[2019-05-26 17:40] LABS: BASOPHILS % (AUTO) 0.1 % (0-1); EOSINOPHILS % (AUTO) 0 % (0-6); HEMATOCRIT 26.2 % (42.0-52.0); HEMOGLOBIN 8.7 g/dl (14.0-17.9); LYMPHOCYTES # (AUTO) 1.5 X10'3 (1.1-4.8); LYMPHOCYTES % (AUTO) 5.5 % (21-51); MEAN CORPUSCULAR HEMOGLOBIN 30.5 PG (27.0-31.0); MEAN CORPUSCULAR HGB CONC 33.4 g/dL (33.0-36.5); MEAN CORPUSCULAR VOLUME 91.3 FL (78-98); MEAN PLATELET VOLUME 8.6 FL (7.4-10.4); MONOCYTES # (AUTO) 2.6 X10'3 (0-0.9); MONOCYTES % (AUTO) 9.7 % (2-12); NEUTROPHILS # (AUTO) 22.8 X10'3 (1.8-7.7); NEUTROPHILS % (AUTO) 84.7 % (42-75); PLATELET COUNT 150 X10'3 (140-440); RED BLOOD COUNT 2.87 X10'6 (4.70-6.10); RED CELL DISTRIBUTION WIDTH 16.2 % (11.5-14.5)
--- NOTE | 2019-05-26 18:11 | NUR ---
Problems reprioritized. Patient report given, questions answered & plan of care reviewed with ANDREW Ye.
--- NOTE | 2019-05-26 18:15 | NUR ---
Patient in room ICU 2038. I have received report from everett persaud and had the opportunity to ask questions and assume patient care.
--- NOTE | 2019-05-26 19:20 | NUR ---
pt is awake alert and confused. pt voice is hoarse. pt will ask questions but will not answer when asked questions. when ask if patient if squeeze my hands or move his feet pt turned his head away from me. unable to assess true mentation due to being unsure if he doesn't understand or is refusing to comply. pt followed commands this morning so unable to determine if there is in fact a mentation change. pt able to move all 4 extremities. cvvh is running, continuing to removes 50 cc per hour. insulin and levophed drips still running per protocol. lung sounds are coarse and diminished throughout. bowel sounds present in all 4 quadrants. no bm present. pt is npo following swallow study and procedure tomorrow. heels, elbows, coccyx intact blanchable, free from breakdown. no bowel movement as of yet. vital signs are stable. no s/s of distress noted. will continue to monitor.
[2019-05-26 21:02] LABS: BASOPHILS % (AUTO) 0.2 % (0-1); EOSINOPHILS % (AUTO) 0 % (0-6); HEMOGLOBIN 8.6 g/dl (14.0-17.9); LYMPHOCYTES # (AUTO) 1.6 X10'3 (1.1-4.8); LYMPHOCYTES % (AUTO) 5.7 % (21-51); MEAN CORPUSCULAR HGB CONC 33.1 g/dL (33.0-36.5); MEAN CORPUSCULAR VOLUME 90.4 FL (78-98); MEAN PLATELET VOLUME 8.7 FL (7.4-10.4); MONOCYTES # (AUTO) 2.7 X10'3 (0-0.9); MONOCYTES % (AUTO) 9.3 % (2-12); NEUTROPHILS # (AUTO) 24.5 X10'3 (1.8-7.7); NEUTROPHILS % (AUTO) 84.8 % (42-75); PLATELET COUNT 149 X10'3 (140-440); RED BLOOD COUNT 2.87 X10'6 (4.70-6.10); RED CELL DISTRIBUTION WIDTH 16.3 % (11.5-14.5)
[2019-05-26 21:03] LABS: WHITE BLOOD COUNT 28.9 X10'3 (4.5-11.0)
[2019-05-26 21:13] LABS: ANION GAP 8 (8-16); BLOOD UREA NITROGEN 46 MG/DL (7-18); BUN/CREATININE RATIO 25.6 (5.4-32.0); CALCIUM 8.3 MG/DL (8.5-10.1); CHLORIDE 101 MMOL/L (99-107); GLUCOSE 135 MG/DL (70-104); MAGNESIUM 2.1 MG/DL (1.5-2.4); POTASSIUM 4.5 MMOL/L (3.5-5.1); SODIUM 138 MMOL/L (135-145); TOTAL CARBON DIOXIDE 28.7 MMOL/L (24-32); eGFR 37 ML/MIN
--- NOTE | 2019-05-26 21:15 | NUR ---
pt is talking more. pt says "he wants to talk to a advertising copywriter because we've kidnapped him" pt is A&O times 1 and is oriented to person. pt reoriented. will continue to monitor.
[2019-05-26 21:17] LABS: PHOSPHORUS 3.5 MG/DL (2.3-4.5)
[2019-05-27] VITALS (24 sets, daily range): BP systolic 81–124; BP diastolic 42–70
--- NOTE | 2019-05-27 00:13 | NUR ---
pt is convinced he is at [facility], when reoriented he states " no i want to go to [place], why can't I leave?" pt informed he is in critical condition with multiple medical needs. pt is now insisting that he leaves. pt remains A&Ox1.
--- NOTE | 2019-05-27 00:30 | NUR ---
pt requested water. started pt with a mouth swab and ice to suck on. pt immediately started coughing. unsafe to give pt oral me at this time. reassessment needed pending swallow eval.
[2019-05-27] MEDS: bicarb dialysis sol 2K+/3 Ca2+ 5,000 ML HE SCH ×3 (00:51→02:59)
[2019-05-27] MEDS: mineral oil/petrolatum ophthal oint EACHEYE SCH ×3 (02:00→14:00)
[2019-05-27 02:39] LABS: PARTIAL THROMBOPLASTIN TIME 31 SECONDS (22-32)
[2019-05-27 02:40] LABS: ALANINE AMINOTRANSFERASE 247 U/L (12-78); ALBUMIN 3.9 G/DL (3.4-5.0); ALBUMIN/GLOBULIN RATIO 1.9 (1.1-1.5); ALKALINE PHOSPHATASE 174 IU/L (46-116); ANION GAP 13 (8-16); ASPARTATE AMINO TRANSFERASE 208 U/L (10-37); BILIRUBIN,TOTAL 4.1 MG/DL (0.1-1.0); BLOOD UREA NITROGEN 38 MG/DL (7-18); BUN/CREATININE RATIO 24.1 (5.4-32.0); CALCIUM 8.9 MG/DL (8.5-10.1); CHLORIDE 102 MMOL/L (99-107); CREATININE 1.58 MG/DL (0.60-1.10); GLUCOSE 129 MG/DL (70-104); MAGNESIUM 2.2 MG/DL (1.5-2.4); PHOSPHORUS 3.3 MG/DL (2.3-4.5); POTASSIUM 4.3 MMOL/L (3.5-5.1); SODIUM 140 MMOL/L (135-145); TOTAL CARBON DIOXIDE 24.7 MMOL/L (24-32); eGFR 43 ML/MIN
[2019-05-27 02:47] LABS: BASOPHILS # (AUTO) 0.1 X10'3 (0-0.2); BASOPHILS % (AUTO) 0.3 % (0-1); EOSINOPHILS % (AUTO) 0 % (0-6); HEMATOCRIT 25.8 % (42.0-52.0); HEMOGLOBIN 8.7 g/dl (14.0-17.9); LYMPHOCYTES # (AUTO) 1.8 X10'3 (1.1-4.8); LYMPHOCYTES % (AUTO) 5.7 % (21-51); MEAN CORPUSCULAR HEMOGLOBIN 30.3 PG (27.0-31.0); MEAN CORPUSCULAR HGB CONC 33.8 g/dL (33.0-36.5); MEAN CORPUSCULAR VOLUME 89.8 FL (78-98); MEAN PLATELET VOLUME 8.3 FL (7.4-10.4); MONOCYTES # (AUTO) 2.9 X10'3 (0-0.9); MONOCYTES % (AUTO) 9.1 % (2-12); NEUTROPHILS # (AUTO) 27.1 X10'3 (1.8-7.7); NEUTROPHILS % (AUTO) 84.9 % (42-75); PLATELET COUNT 150 X10'3 (140-440); RED BLOOD COUNT 2.87 X10'6 (4.70-6.10); RED CELL DISTRIBUTION WIDTH 16.6 % (11.5-14.5)
[2019-05-27 02:50] LABS: WHITE BLOOD COUNT 31.8 X10'3 (4.5-11.0)
[2019-05-27] MEDS: methylPREDNISolone sod succ/PF 40mg inj. IV SCH ×4 (02:57→20:25)
[2019-05-27] MEDS: metoclopramide 5 mg/ml inj IV SCH ×4 (02:58→20:25)
[2019-05-27] MEDS: ipratropium/albuterol 3ml nebule NEB SCH ×6 (03:07→23:03)
[2019-05-27 03:50] LABS: TOTAL CELLS COUNTED 100
[2019-05-27 03:51] LABS: LYMPHOCYTES % (MANUAL) 3 % (21-51); METAMYLEOCYTES% (MANUAL) 5 % (0-0); MONOCYTES % (MANUAL) 9 % (2-12); NEUTROPHILS % (MANUAL) 83 % (42-75); NUCLEATED RED BLOOD CELLS 8 /100WBC (0-0); PLATELET ESTIMATE NORMAL
[2019-05-27 03:52] LABS: ANISOCYTOSIS 1+; POLYCHROMASIA 1+
[2019-05-27] MEDS ORDERED: [UNRECOGNIZED DRUG - OTHER] IV SCH (05:45)
[2019-05-27] MEDS ORDERED: CALCIUM CHLORIDE IV SCH (05:45)
[2019-05-27] MEDS: insulin regular, human 100 UNIT in normal saline 100ml IV soln 99 ML IV SCH ×2 (06:20)
[2019-05-27] MEDS: NORepinephrine 8mg/ 250ml NS 250 ML IV SCH ×2 (06:32→10:24)
[2019-05-27] MEDS: cefepime 1GM in D5W 50mL IVPB IV SCH (07:28)
[2019-05-27] MEDS: pantoprazole 40 MG vial IV SCH (07:29)
[2019-05-27] MEDS: docusate sodium 100mg/10ml UD cup OGT SCH (07:33)
[2019-05-27] MEDS: aspirin 81mg tab.chew OGT SCH (07:33)
[2019-05-27] MEDS: carVEDilol 3.125mg tablet OGT SCH (07:33)
[2019-05-27] MEDS: clopidogrel 75mg tablet OGT SCH (07:33)
[2019-05-27] MEDS: lactobacillus rhamnosus 10,000 MMU CELLS/CAPSULE PO SCH ×2 (07:34→20:26)
[2019-05-27] MEDS: midodrine 5mg tablet OGT SCH ×3 (07:34→15:15)
[2019-05-27] MEDS: heparin, porcine 5000 units/ml vial SQ SCH ×2 (07:35→20:25)
[2019-05-27 08:16] LABS: BASOPHILS # (AUTO) 0.1 X10'3 (0-0.2); BASOPHILS % (AUTO) 0.3 % (0-1); EOSINOPHILS % (AUTO) 0 % (0-6); HEMATOCRIT 24.9 % (42.0-52.0); HEMOGLOBIN 8.4 g/dl (14.0-17.9); LYMPHOCYTES # (AUTO) 1.9 X10'3 (1.1-4.8); LYMPHOCYTES % (AUTO) 5.6 % (21-51); MEAN CORPUSCULAR HEMOGLOBIN 30.5 PG (27.0-31.0); MEAN CORPUSCULAR HGB CONC 33.9 g/dL (33.0-36.5); MEAN PLATELET VOLUME 8.4 FL (7.4-10.4); MONOCYTES # (AUTO) 3.4 X10'3 (0-0.9); MONOCYTES % (AUTO) 9.8 % (2-12); NEUTROPHILS % (AUTO) 84.3 % (42-75); PLATELET COUNT 152 X10'3 (140-440); RED BLOOD COUNT 2.76 X10'6 (4.70-6.10); RED CELL DISTRIBUTION WIDTH 16.6 % (11.5-14.5)
[2019-05-27] MEDS: dexmedetomidin/NS 400mcg/100ml 100 ML IV SCH (08:25)
[2019-05-27 08:26] LABS: WHITE BLOOD COUNT 34.4 X10'3 (4.5-11.0)
--- NOTE | 2019-05-27 08:26 | NUR ---
Dr. Seth at bedside; notified of increasing WBC up to 34.4; orders for blood cultures and urine sample. MD also aware of AST/ALT and increasing bilirubin up to 4.1 from 3.1. Will continue CVVH for today.
[2019-05-27 08:34] LABS: ALBUMIN 3.9 G/DL (3.4-5.0); ANION GAP 10 (8-16); BLOOD UREA NITROGEN 37 MG/DL (7-18); BUN/CREATININE RATIO 22.8 (5.4-32.0); CALCIUM 8.5 MG/DL (8.5-10.1); CHLORIDE 102 MMOL/L (99-107); CREATININE 1.62 MG/DL (0.60-1.10); GLUCOSE 121 MG/DL (70-104); PHOSPHORUS 2.9 MG/DL (2.3-4.5); POTASSIUM 4.1 MMOL/L (3.5-5.1); SODIUM 139 MMOL/L (135-145); TOTAL CARBON DIOXIDE 26.6 MMOL/L (24-32); eGFR 42 ML/MIN
[2019-05-27 08:47] LABS: NUCLEATED RED BLOOD CELLS 15 /100WBC (0-0); TOTAL CELLS COUNTED 100
[2019-05-27 08:50] LABS: ANISOCYTOSIS 1+; PLATELET ESTIMATE NORMAL; POLYCHROMASIA 2+
[2019-05-27] MEDS: Duosol 4K/3 Ca (w/calcium) 5,000 ML HE SCH ×9 (09:41→22:45)
[2019-05-27] MEDS ORDERED: sincalide inj 2.1 MCG in normal saline 50ml IV soln 50 ML IV ONE (10:15)
[2019-05-27 10:40] LABS: CLARITY,URINE TURBID (Clear); COLOR,URINE BROWN (Yellow)
[2019-05-27 10:56] LABS: SQUAMOUS EPITHELIAL CELL,UR MODERATE /LPF (FEW)
[2019-05-27 10:57] LABS: SPERM MANY /HPF (NEGATIVE)
[2019-05-27 10:58] LABS: YEAST MANY /HPF (NEGATIVE)
[2019-05-27 11:00] LABS: WBC,URINE 20-30 /HPF (0-4)
[2019-05-27 11:01] LABS: TRANSITIONAL EPI CELLS,URINE FEW /HPF
[2019-05-27 11:03] LABS: RBC,URINE TNTC /HPF (0-2)
[2019-05-27 11:04] LABS: BACTERIA,URINE 1+ /HPF (Neg)
[2019-05-27 11:09] LABS: UA COLLECTION TYPE FOLEY CATH
[2019-05-27] MEDS: VANCOmycin 1250MG/NS 250ml Bag 250 ML IV SCH (12:22)
[2019-05-27 14:21] LABS: BASOPHILS % (AUTO) 0.1 % (0-1); EOSINOPHILS % (AUTO) 0 % (0-6); HEMATOCRIT 24.6 % (42.0-52.0); HEMOGLOBIN 8.3 g/dl (14.0-17.9); LYMPHOCYTES # (AUTO) 1.4 X10'3 (1.1-4.8); MEAN CORPUSCULAR HEMOGLOBIN 30.6 PG (27.0-31.0); MEAN CORPUSCULAR HGB CONC 33.7 g/dL (33.0-36.5); MEAN CORPUSCULAR VOLUME 90.7 FL (78-98); MEAN PLATELET VOLUME 8.2 FL (7.4-10.4); MONOCYTES # (AUTO) 2.4 X10'3 (0-0.9); NEUTROPHILS # (AUTO) 30.6 X10'3 (1.8-7.7); NEUTROPHILS % (AUTO) 88.9 % (42-75); PLATELET COUNT 153 X10'3 (140-440); RED BLOOD COUNT 2.71 X10'6 (4.70-6.10); RED CELL DISTRIBUTION WIDTH 16.9 % (11.5-14.5)
[2019-05-27 14:23] LABS: WHITE BLOOD COUNT 34.5 X10'3 (4.5-11.0)
[2019-05-27 14:32] LABS: ALBUMIN 3.7 G/DL (3.4-5.0); ANION GAP 9 (8-16); BLOOD UREA NITROGEN 34 MG/DL (7-18); BUN/CREATININE RATIO 21.9 (5.4-32.0); CALCIUM 8.8 MG/DL (8.5-10.1); CHLORIDE 103 MMOL/L (99-107); CREATININE 1.55 MG/DL (0.60-1.10); GLUCOSE 136 MG/DL (70-104); POTASSIUM 3.9 MMOL/L (3.5-5.1); SODIUM 139 MMOL/L (135-145); TOTAL CARBON DIOXIDE 26.6 MMOL/L (24-32); eGFR 44 ML/MIN
[2019-05-27] MEDS: potassium Cl 20mEq/100mL bag 100 ML IV PRN ×2 (15:16→16:32)
[2019-05-27 15:34] LABS: MAGNESIUM 2.2 MG/DL (1.5-2.4)
--- NOTE | 2019-05-27 18:30 | NUR ---
Patient in room ICU 2038. I have received report from Mariana MORALES and had the opportunity to ask questions and assume patient care. Patient awake in bed, orientated to self and time, on room air with spo2 at 97%, norepinephrine drip to keep MAP greater than 60, will titrate per protocol, see IV spreadsheet and interventions for further information. All monitoring alarms audible. CVVH per provider orders, clot forming in filter, CVVH is running at this time. Will continue to monitor.
--- NOTE | 2019-05-27 18:32 | NUR ---
Problems reprioritized. Patient report given, questions answered & plan of care reviewed with ANDREW Anders.
[2019-05-27] MEDS ORDERED: acetaminophen 325mg/10.15ml oral unit dose solution PO PRN (19:30)
[2019-05-27] MEDS ORDERED: magnesium hydroxide 30ml (MOM) UD suspension PO PRN (19:30)
[2019-05-27] MEDS ORDERED: dextrose ORAL solution 15 GM/59 ML bottle PO PRN ×2 (19:46)
[2019-05-27] MEDS: carVEDilol 3.125mg tablet PO SCH (20:00)
[2019-05-27] MEDS: docusate sodium 100mg/10ml UD cup PO SCH (20:26)
[2019-05-27 20:56] LABS: BASOPHILS % (AUTO) 0.1 % (0-1); EOSINOPHILS % (AUTO) 0 % (0-6); HEMATOCRIT 24.9 % (42.0-52.0); HEMOGLOBIN 8.4 g/dl (14.0-17.9); LYMPHOCYTES # (AUTO) 1.6 X10'3 (1.1-4.8); LYMPHOCYTES % (AUTO) 5.4 % (21-51); MEAN CORPUSCULAR HEMOGLOBIN 30.6 PG (27.0-31.0); MEAN CORPUSCULAR HGB CONC 33.7 g/dL (33.0-36.5); MEAN CORPUSCULAR VOLUME 90.9 FL (78-98); MEAN PLATELET VOLUME 8.4 FL (7.4-10.4); MONOCYTES # (AUTO) 2.1 X10'3 (0-0.9); MONOCYTES % (AUTO) 6.9 % (2-12); NEUTROPHILS # (AUTO) 26.4 X10'3 (1.8-7.7); NEUTROPHILS % (AUTO) 87.6 % (42-75); PLATELET COUNT 146 X10'3 (140-440); RED BLOOD COUNT 2.74 X10'6 (4.70-6.10); RED CELL DISTRIBUTION WIDTH 16.7 % (11.5-14.5)
[2019-05-27 20:58] LABS: WHITE BLOOD COUNT 30.1 X10'3 (4.5-11.0)
[2019-05-27 21:12] LABS: ALBUMIN 3.9 G/DL (3.4-5.0); ANION GAP 7 (8-16); BLOOD UREA NITROGEN 32 MG/DL (7-18); BUN/CREATININE RATIO 21.8 (5.4-32.0); CALCIUM 8.7 MG/DL (8.5-10.1); CHLORIDE 104 MMOL/L (99-107); CREATININE 1.47 MG/DL (0.60-1.10); GLUCOSE 117 MG/DL (70-104); MAGNESIUM 2.2 MG/DL (1.5-2.4); POTASSIUM 4.4 MMOL/L (3.5-5.1); SODIUM 139 MMOL/L (135-145); TOTAL CARBON DIOXIDE 28.4 MMOL/L (24-32); eGFR 47 ML/MIN
[2019-05-27 21:25] LABS: PHOSPHORUS 2.7 MG/DL (2.3-4.5)
[2019-05-28] VITALS (24 sets, daily range): BP systolic 86–114; BP diastolic 46–65
[2019-05-28] MEDS: midodrine 5mg tablet PO SCH ×3 (00:17→16:20)
[2019-05-28] MEDS: Duosol 4K/3 Ca (w/calcium) 5,000 ML HE SCH ×20 (00:41→20:40)
[2019-05-28] MEDS: methylPREDNISolone sod succ/PF 40mg inj. IV SCH ×4 (02:30→20:28)
[2019-05-28] MEDS: metoclopramide 5 mg/ml inj IV SCH ×4 (02:31→20:28)
[2019-05-28 02:58] LABS: BASOPHILS % (AUTO) 0 % (0-1); EOSINOPHILS % (AUTO) 0 % (0-6); HEMATOCRIT 24.3 % (42.0-52.0); HEMOGLOBIN 8.1 g/dl (14.0-17.9); LYMPHOCYTES # (AUTO) 1.1 X10'3 (1.1-4.8); LYMPHOCYTES % (AUTO) 3.9 % (21-51); MEAN CORPUSCULAR HEMOGLOBIN 31.1 PG (27.0-31.0); MEAN CORPUSCULAR HGB CONC 33.4 g/dL (33.0-36.5); MEAN PLATELET VOLUME 8.2 FL (7.4-10.4); MONOCYTES # (AUTO) 1.9 X10'3 (0-0.9); MONOCYTES % (AUTO) 6.5 % (2-12); NEUTROPHILS # (AUTO) 25.3 X10'3 (1.8-7.7); NEUTROPHILS % (AUTO) 89.6 % (42-75); PLATELET COUNT 123 X10'3 (140-440); RED BLOOD COUNT 2.61 X10'6 (4.70-6.10); RED CELL DISTRIBUTION WIDTH 16.8 % (11.5-14.5)
[2019-05-28] MEDS: ipratropium/albuterol 3ml nebule NEB SCH ×6 (03:03→23:08)
[2019-05-28 03:06] LABS: WHITE BLOOD COUNT 28.3 X10'3 (4.5-11.0)
[2019-05-28 03:21] LABS: ALANINE AMINOTRANSFERASE 230 U/L (12-78); ALBUMIN 3.8 G/DL (3.4-5.0); ALKALINE PHOSPHATASE 165 IU/L (46-116); ANION GAP 5 (8-16); ASPARTATE AMINO TRANSFERASE 156 U/L (10-37); BILIRUBIN,TOTAL 4.4 MG/DL (0.1-1.0); BLOOD UREA NITROGEN 30 MG/DL (7-18); BUN/CREATININE RATIO 19.7 (5.4-32.0); CALCIUM 8.6 MG/DL (8.5-10.1); CHLORIDE 104 MMOL/L (99-107); CREATININE 1.52 MG/DL (0.60-1.10); GLUCOSE 146 MG/DL (70-104); MAGNESIUM 2.1 MG/DL (1.5-2.4); POTASSIUM 4.7 MMOL/L (3.5-5.1); SODIUM 138 MMOL/L (135-145); TOTAL CARBON DIOXIDE 28.6 MMOL/L (24-32); eGFR 45 ML/MIN
[2019-05-28 03:44] LABS: ALBUMIN/GLOBULIN RATIO 1.7 (1.1-1.5); PHOSPHORUS 2.7 MG/DL (2.3-4.5)
[2019-05-28 03:45] LABS: ANISOCYTOSIS 1+; NUCLEATED RED BLOOD CELLS 5 /100WBC (0-0); PLATELET ESTIMATE DECREASED; POLYCHROMASIA FEW; TOTAL CELLS COUNTED 100; TOXIC GRANULATION 1+
[2019-05-28 04:11] LABS: PARTIAL THROMBOPLASTIN TIME 30 SECONDS (22-32)
--- NOTE | 2019-05-28 06:40 | NUR ---
Problems reprioritized. Patient report given, questions answered & plan of care reviewed with Osbaldo MORALES.
[2019-05-28] MEDS: docusate sodium 100mg/10ml UD cup PO SCH (08:00)
[2019-05-28] MEDS: carVEDilol 3.125mg tablet PO SCH ×2 (08:00→20:00)
[2019-05-28] MEDS: cefepime 1GM in D5W 50mL IVPB IV SCH (08:08)
[2019-05-28] MEDS: lactobacillus rhamnosus 10,000 MMU CELLS/CAPSULE PO SCH ×2 (08:12→20:00)
[2019-05-28] MEDS: clopidogrel 75mg tablet PO SCH (08:12)
[2019-05-28] MEDS: aspirin 81mg tab.chew PO SCH (08:12)
[2019-05-28] MEDS: pantoprazole 40 MG vial IV SCH (08:16)
[2019-05-28] MEDS: heparin, porcine 5000 units/ml vial SQ SCH ×2 (08:18→20:28)
[2019-05-28 08:25] LABS: BASOPHILS % (AUTO) 0.1 % (0-1); EOSINOPHILS % (AUTO) 0 % (0-6); HEMATOCRIT 24.8 % (42.0-52.0); HEMOGLOBIN 8.3 g/dl (14.0-17.9); LYMPHOCYTES % (AUTO) 3.4 % (21-51); MEAN CORPUSCULAR HEMOGLOBIN 31.1 PG (27.0-31.0); MEAN CORPUSCULAR HGB CONC 33.5 g/dL (33.0-36.5); MEAN CORPUSCULAR VOLUME 92.8 FL (78-98); MEAN PLATELET VOLUME 8.2 FL (7.4-10.4); MONOCYTES % (AUTO) 6.8 % (2-12); NEUTROPHILS # (AUTO) 25.9 X10'3 (1.8-7.7); NEUTROPHILS % (AUTO) 89.7 % (42-75); PLATELET COUNT 122 X10'3 (140-440); RED BLOOD COUNT 2.68 X10'6 (4.70-6.10); RED CELL DISTRIBUTION WIDTH 16.7 % (11.5-14.5)
[2019-05-28 08:30] LABS: WHITE BLOOD COUNT 28.8 X10'3 (4.5-11.0)
--- NOTE | 2019-05-28 08:30 | NUR ---
Critical WBC of 28.8 up from 28.3; MD aware. Pt going to HIDA scan to assess gallbladder this AM.
[2019-05-28 08:36] LABS: ALBUMIN 3.8 G/DL (3.4-5.0); ANION GAP 5 (8-16); BLOOD UREA NITROGEN 32 MG/DL (7-18); BUN/CREATININE RATIO 20.4 (5.4-32.0); CHLORIDE 104 MMOL/L (99-107); CREATININE 1.57 MG/DL (0.60-1.10); GLUCOSE 133 MG/DL (70-104); POTASSIUM 4.6 MMOL/L (3.5-5.1); SODIUM 138 MMOL/L (135-145); TOTAL CARBON DIOXIDE 29.3 MMOL/L (24-32); eGFR 44 ML/MIN
[2019-05-28] MEDS ORDERED: heparin 1,000 units/ml 10ml inj HE ONE ×2 (08:55)
[2019-05-28 09:14] LABS: MAGNESIUM 2.1 MG/DL (1.5-2.4)
--- NOTE | 2019-05-28 09:50 | NUR ---
CVVH stopped and rinseback performed. Hep-lock ordered.
[2019-05-28] MEDS: insulin regular, human 100 UNIT in normal saline 100ml IV soln 99 ML IV SCH ×4 (09:53→21:28)
--- NOTE | 2019-05-28 11:05 | NUR ---
Patient down to nuclear medicine; RN at bedside.
[2019-05-28] MEDS ORDERED: VANCOMYCIN LEVEL IV ONE (11:30)
[2019-05-28] MEDS ORDERED: sincalide inj 2.1 MCG in normal saline 50ml IV soln 50 ML IV ONE (12:30)
[2019-05-28] MEDS: NORepinephrine 8mg/ 250ml NS 250 ML IV SCH (12:57)
--- NOTE | 2019-05-28 13:45 | NUR ---
Patient back from nuclear medicine; tolerated well.
[2019-05-28] MEDS: VANCOmycin 1250MG/NS 250ml Bag 250 ML IV SCH (13:53)
[2019-05-28] MEDS: methylnaltrexone br 12mg/0.6ml inj***SubQ only SQ SCH (14:06)
[2019-05-28 14:17] LABS: BASOPHILS % (AUTO) 0.1 % (0-1); EOSINOPHILS % (AUTO) 0 % (0-6); HEMATOCRIT 25.4 % (42.0-52.0); HEMOGLOBIN 8.4 g/dl (14.0-17.9); LYMPHOCYTES # (AUTO) 0.6 X10'3 (1.1-4.8); MEAN CORPUSCULAR HEMOGLOBIN 30.9 PG (27.0-31.0); MEAN CORPUSCULAR VOLUME 93.7 FL (78-98); MEAN PLATELET VOLUME 8.2 FL (7.4-10.4); MONOCYTES % (AUTO) 6.6 % (2-12); NEUTROPHILS # (AUTO) 27.8 X10'3 (1.8-7.7); NEUTROPHILS % (AUTO) 91.3 % (42-75); PLATELET COUNT 122 X10'3 (140-440); RED BLOOD COUNT 2.71 X10'6 (4.70-6.10); RED CELL DISTRIBUTION WIDTH 16.8 % (11.5-14.5)
[2019-05-28 14:23] LABS: WHITE BLOOD COUNT 30.4 X10'3 (4.5-11.0)
[2019-05-28 14:28] LABS: ALBUMIN 3.7 G/DL (3.4-5.0); ANION GAP 7 (8-16); BLOOD UREA NITROGEN 38 MG/DL (7-18); BUN/CREATININE RATIO 19.6 (5.4-32.0); CALCIUM 8.3 MG/DL (8.5-10.1); CHLORIDE 104 MMOL/L (99-107); CREATININE 1.94 MG/DL (0.60-1.10); GLUCOSE 144 MG/DL (70-104); MAGNESIUM 2.1 MG/DL (1.5-2.4); PHOSPHORUS 3.5 MG/DL (2.3-4.5); POTASSIUM 4.8 MMOL/L (3.5-5.1); SODIUM 139 MMOL/L (135-145); TOTAL CARBON DIOXIDE 27.9 MMOL/L (24-32); eGFR 34 ML/MIN
[2019-05-28 14:51] LABS: VANCOMYCIN,TROUGH 15.1 UG/ML (6.0-14.0)
[2019-05-28] MEDS: normal saline 1000ml 1,000 ML IV SCH (16:49)
--- NOTE | 2019-05-28 17:22 | NUR ---
Positive Yeast culture growing in urine; identification/sensitivity to follow; Mary Jo QUAN notified. WBC continues to be elevated; supervisor warping department aware.
--- NOTE | 2019-05-28 17:33 | NUR ---
Telephone order for Fluconazole IV 400mg daily for yeast in the urine; however, patient on CVVH with decreased creatinine clearance; Mary Jo QUAN aware; orders to decrease dose by 50% and administer 200mg daily.
[2019-05-28] MEDS: fluconazole-Diflucan 200mg/NS 100 ML IV SCH (18:12)
--- NOTE | 2019-05-28 18:34 | NUR ---
Problems reprioritized. Patient report given, questions answered & plan of care reviewed with Martita MORALES.
--- NOTE | 2019-05-28 18:35 | NUR ---
Patient in room ICU 2038. I have received report from Osbaldo MORALES and had the opportunity to ask questions and assume patient care. Patient resting in bed, alert and orientated x4, on room air with spo2 at 98%, Norepinephrine drip infusing via central line to keep MAP greater than 60, Insulin drip for blood glucose control, will titrate per protocol, see IV spreadsheet for further information, call light in reach, patient in view of RN, CVVH running via right subclavian TDC. Patient has refused to eat dinner at this time, however did drink approximally 25ml of nectar thick milk. All monitoring alarms audible. See interventions for further information. Will continue to monitor.
[2019-05-28] MEDS: docusate sod 100mg capsule PO SCH (20:00)
[2019-05-28 20:36] LABS: BASOPHILS % (AUTO) 0.1 % (0-1); EOSINOPHILS % (AUTO) 0 % (0-6); HEMATOCRIT 24.8 % (42.0-52.0); HEMOGLOBIN 8.2 g/dl (14.0-17.9); LYMPHOCYTES % (AUTO) 3.6 % (21-51); MEAN CORPUSCULAR HGB CONC 33.2 g/dL (33.0-36.5); MEAN CORPUSCULAR VOLUME 93.3 FL (78-98); MEAN PLATELET VOLUME 8.1 FL (7.4-10.4); MONOCYTES # (AUTO) 1.7 X10'3 (0-0.9); MONOCYTES % (AUTO) 6.2 % (2-12); NEUTROPHILS # (AUTO) 25.1 X10'3 (1.8-7.7); NEUTROPHILS % (AUTO) 90.1 % (42-75); PLATELET COUNT 116 X10'3 (140-440); RED BLOOD COUNT 2.66 X10'6 (4.70-6.10); RED CELL DISTRIBUTION WIDTH 16.7 % (11.5-14.5)
[2019-05-28 20:41] LABS: ALBUMIN 3.6 G/DL (3.4-5.0); ANION GAP 5 (8-16); BLOOD UREA NITROGEN 35 MG/DL (7-18); BUN/CREATININE RATIO 19.3 (5.4-32.0); CALCIUM 8.3 MG/DL (8.5-10.1); CHLORIDE 104 MMOL/L (99-107); CREATININE 1.81 MG/DL (0.60-1.10); GLUCOSE 131 MG/DL (70-104); PHOSPHORUS 3.1 MG/DL (2.3-4.5); SODIUM 138 MMOL/L (135-145); TOTAL CARBON DIOXIDE 29.4 MMOL/L (24-32); eGFR 37 ML/MIN
[2019-05-28 20:47] LABS: WHITE BLOOD COUNT 27.8 X10'3 (4.5-11.0)
--- NOTE | 2019-05-28 21:38 | NUR ---
Patient refused Docusate and Culturelle medications. Patient is also refusing to have heels floated. Patient was educated on risks vs benefits.
[2019-05-29] VITALS (22 sets, daily range): BP systolic 94–114; BP diastolic 52–66
[2019-05-29] MEDS: midodrine 5mg tablet PO SCH ×3 (00:11→15:54)
[2019-05-29] MEDS: NORepinephrine 8mg/ 250ml NS 250 ML IV SCH ×2 (00:14→18:14)
[2019-05-29] MEDS: Duosol 4K/3 Ca (w/calcium) 5,000 ML HE SCH ×3 (01:07→01:09)
[2019-05-29] MEDS: metoclopramide 5 mg/ml inj IV SCH ×4 (02:10→19:59)
[2019-05-29] MEDS: methylPREDNISolone sod succ/PF 40mg inj. IV SCH ×4 (02:10→19:59)
[2019-05-29 02:15] LABS: ALANINE AMINOTRANSFERASE 185 U/L (12-78); ALBUMIN 3.6 G/DL (3.4-5.0); ALKALINE PHOSPHATASE 146 IU/L (46-116); ANION GAP 8 (8-16); ASPARTATE AMINO TRANSFERASE 109 U/L (10-37); BILIRUBIN,TOTAL 4.3 MG/DL (0.1-1.0); BLOOD UREA NITROGEN 30 MG/DL (7-18); BUN/CREATININE RATIO 18.6 (5.4-32.0); CALCIUM 8.4 MG/DL (8.5-10.1); CHLORIDE 104 MMOL/L (99-107); CREATININE 1.61 MG/DL (0.60-1.10); GLUCOSE 142 MG/DL (70-104); MAGNESIUM 1.9 MG/DL (1.5-2.4); POTASSIUM 5.1 MMOL/L (3.5-5.1); SODIUM 139 MMOL/L (135-145); TOTAL CARBON DIOXIDE 27.5 MMOL/L (24-32); eGFR 42 ML/MIN
[2019-05-29 02:17] LABS: BASOPHILS % (AUTO) 0.2 % (0-1); EOSINOPHILS % (AUTO) 0 % (0-6); HEMATOCRIT 24.7 % (42.0-52.0); HEMOGLOBIN 8.1 g/dl (14.0-17.9); LYMPHOCYTES # (AUTO) 0.6 X10'3 (1.1-4.8); LYMPHOCYTES % (AUTO) 2.2 % (21-51); MEAN CORPUSCULAR HEMOGLOBIN 30.9 PG (27.0-31.0); MEAN CORPUSCULAR HGB CONC 32.8 g/dL (33.0-36.5); MEAN CORPUSCULAR VOLUME 94.2 FL (78-98); MEAN PLATELET VOLUME 8.1 FL (7.4-10.4); MONOCYTES # (AUTO) 1.4 X10'3 (0-0.9); MONOCYTES % (AUTO) 5.1 % (2-12); NEUTROPHILS # (AUTO) 25.3 X10'3 (1.8-7.7); NEUTROPHILS % (AUTO) 92.5 % (42-75); PLATELET COUNT 100 X10'3 (140-440); RED BLOOD COUNT 2.63 X10'6 (4.70-6.10); RED CELL DISTRIBUTION WIDTH 17.2 % (11.5-14.5)
[2019-05-29 02:21] LABS: WHITE BLOOD COUNT 27.3 X10'3 (4.5-11.0)
[2019-05-29 02:42] LABS: ALBUMIN/GLOBULIN RATIO 1.5 (1.1-1.5); PARTIAL THROMBOPLASTIN TIME 32 SECONDS (22-32); PHOSPHORUS 2.9 MG/DL (2.3-4.5)
[2019-05-29 02:51] LABS: ANISOCYTOSIS 1+; NUCLEATED RED BLOOD CELLS 1 /100WBC (0-0); PLATELET ESTIMATE DECREASED; TOTAL CELLS COUNTED 100; TOXIC GRANULATION 1+
[2019-05-29] MEDS: ipratropium/albuterol 3ml nebule NEB SCH ×6 (03:00→23:47)
[2019-05-29] MEDS: CALCIUM CHLORIDE IV SCH ×2 (06:15→06:16)
[2019-05-29] MEDS: [UNRECOGNIZED DRUG - OTHER] IV SCH ×2 (06:15→06:16)
--- NOTE | 2019-05-29 06:30 | NUR ---
recived report and assumed care of patient.
--- NOTE | 2019-05-29 06:30 | NUR ---
CVVH is down. blood returned to patient.
--- NOTE | 2019-05-29 06:38 | NUR ---
Problems reprioritized. Patient report given, questions answered & plan of care reviewed with Eloisa MORALES.
[2019-05-29] MEDS: carVEDilol 3.125mg tablet PO SCH ×2 (08:00→20:00)
[2019-05-29] MEDS: pantoprazole 40 MG vial IV SCH (08:34)
[2019-05-29] MEDS: fluconazole-Diflucan 200mg/NS 100 ML IV SCH (08:34)
[2019-05-29] MEDS: cefepime 1GM in D5W 50mL IVPB IV SCH (08:34)
[2019-05-29] MEDS: docusate sod 100mg capsule PO SCH ×2 (08:35→20:00)
[2019-05-29] MEDS: lactobacillus rhamnosus 10,000 MMU CELLS/CAPSULE PO SCH ×2 (08:35→20:00)
[2019-05-29] MEDS: clopidogrel 75mg tablet PO SCH (08:35)
[2019-05-29] MEDS: aspirin 81mg tab.chew PO SCH (08:35)
[2019-05-29] MEDS ORDERED: VANCOMYCIN LEVEL IV ONE (11:30)
--- NOTE | 2019-05-29 12:24 | NUR ---
Reassessment: Pt NG has been pulled currently on pureed/NTL diet per SP recs and refused breakfast this AM. Not meeting needs on CVV[facility]. LBM 05/28. Will need alternative nutrition if low PO persists s/p extubation. Recommend: 1. Continue pureed/NTL diet per SP recs 2. IF NGTF; Vital High Protein at 75 ml/hr to provide total volume of 1800 ml, 1800 cals, 158g protein and 1512ml water. Initiate at 20ml/hr and advance 20ml Q8 to goal as tolerated. 3. IF NGTF prealbumin q Thursday and , daily weights 4. IF NGTF additional water flush per liquor department manager on CVVH 5. routine bowel care 6. When extubated and alert needs written and verbal DM education, A1c is 11.6 Addendum: 05/29/19 at [address] Amended: Links added.
[2019-05-29] MEDS: VANCOmycin 1250MG/NS 250ml Bag 250 ML IV SCH (12:26)
[2019-05-29] MEDS: insulin regular, human 100 UNIT in normal saline 100ml IV soln 99 ML IV SCH ×4 (14:53→18:13)
[2019-05-29] MEDS ORDERED: heparin 1,000 units/ml 10ml inj HE ONE ×2 (15:15)
[2019-05-29] MEDS: heparin, porcine 5000 units/ml vial SQ SCH (20:00)
[2019-05-29] MEDS ORDERED: MESSAGE TO PHARMACY PO ONE (20:15)
[2019-05-29] MEDS: insulin glargine (Lantus) pen - multi-dose SQ SCH (21:23)
[2019-05-30] VITALS (24 sets, daily range): BP systolic 91–114; BP diastolic 41–86
[2019-05-30] MEDS: midodrine 5mg tablet PO SCH ×4 (00:02→23:40)
[2019-05-30] MEDS: metoclopramide 5 mg/ml inj IV SCH ×4 (02:16→20:23)
[2019-05-30] MEDS: methylPREDNISolone sod succ/PF 40mg inj. IV SCH ×4 (02:16→20:23)
--- NOTE | 2019-05-30 02:33 | NUR ---
Patient no longer alert and oriented x4. 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 Labs and ABG pending. Addendum: 05/30/19 at 0235 by Martita George RN vital signs stable.
[2019-05-30 02:35] LABS: PARTIAL THROMBOPLASTIN TIME 32 SECONDS (22-32)
[2019-05-30 02:39] LABS: ALANINE AMINOTRANSFERASE 183 U/L (12-78); ALBUMIN 3.5 G/DL (3.4-5.0); ALKALINE PHOSPHATASE 136 IU/L (46-116); ANION GAP 11 (8-16); ASPARTATE AMINO TRANSFERASE 128 U/L (10-37); BILIRUBIN,TOTAL 4.7 MG/DL (0.1-1.0); BLOOD UREA NITROGEN 59 MG/DL (7-18); BUN/CREATININE RATIO 20.2 (5.4-32.0); CALCIUM 8.3 MG/DL (8.5-10.1); CHLORIDE 103 MMOL/L (99-107); CREATININE 2.92 MG/DL (0.60-1.10); GLUCOSE 185 MG/DL (70-104); POTASSIUM 5.9 MMOL/L (3.5-5.1); SODIUM 136 MMOL/L (135-145); TOTAL CARBON DIOXIDE 22.3 MMOL/L (24-32); eGFR 21 ML/MIN
[2019-05-30 02:42] LABS: BASOPHILS % (AUTO) 0.1 % (0-1); EOSINOPHILS % (AUTO) 0 % (0-6); HEMATOCRIT 24.2 % (42.0-52.0); LYMPHOCYTES # (AUTO) 0.3 X10'3 (1.1-4.8); LYMPHOCYTES % (AUTO) 1.4 % (21-51); MEAN CORPUSCULAR HEMOGLOBIN 31.8 PG (27.0-31.0); MEAN CORPUSCULAR VOLUME 96.5 FL (78-98); MEAN PLATELET VOLUME 8.5 FL (7.4-10.4); MONOCYTES # (AUTO) 1.3 X10'3 (0-0.9); MONOCYTES % (AUTO) 5.5 % (2-12); NEUTROPHILS # (AUTO) 21.6 X10'3 (1.8-7.7); PLATELET COUNT 73 X10'3 (140-440); RED BLOOD COUNT 2.51 X10'6 (4.70-6.10); RED CELL DISTRIBUTION WIDTH 17.6 % (11.5-14.5); WHITE BLOOD COUNT 23.2 X10'3 (4.5-11.0)
[2019-05-30 02:44] LABS: MAGNESIUM 2.2 MG/DL (1.5-2.4); PREALBUMIN 12.8 MG/DL (19-36)
[2019-05-30] MEDS: ipratropium/albuterol 3ml nebule NEB SCH ×6 (02:53→23:17)
--- NOTE | 2019-05-30 03:00 | NUR ---
Patient increasingly somnolent, not able to cough up secretions, patient is course throughout upon auscultation. Notified Lacy Damian Over PHYSICAL MEDICINE TEACHER, received orders to check Ammonia level, results pending.
[2019-05-30 03:03] LABS: ALBUMIN/GLOBULIN RATIO 1.4 (1.1-1.5); PHOSPHORUS 4.9 MG/DL (2.3-4.5)
[2019-05-30] MEDS: insulin regular, human vial - multi-dose SQ SCH ×4 (03:03→20:36)
[2019-05-30 03:11] LABS: ABG BASE EXCESS -3.8 mmol/L (-2.0-3.0); ABG HCO3 20.2 mmol/L (22.0-26.0); ABG OXYGEN SATURATION 94.2 % (95-98); ABG PCO2 (T) 32.3 mmHg (35.0-45.0); ABG PH (T) 7.414 (7.350-7.450); ALLEN'S TEST Positive; FCOHb 0.7 % (0.5-1.5); FMetHb 0.2 % (0.3-1.12); FO2Hb 93.4 % (94-100); PATIENT TEMPERATURE 36.9; RESPIRATORY RATE (OBSERVED) 26 b/min
[2019-05-30] MEDS ORDERED: sodium polystyrene sulfonate 15gm/60ml oral suspension PO ONE (04:40)
[2019-05-30] MEDS: NORepinephrine 8mg/ 250ml NS 250 ML IV SCH ×2 (05:32→19:44)
--- NOTE | 2019-05-30 06:29 | NUR ---
Problems reprioritized. Patient report given, questions answered & plan of care reviewed with Eloisa MORALES.
[2019-05-30] MEDS: carVEDilol 3.125mg tablet PO SCH ×2 (08:00→20:00)
[2019-05-30] MEDS ORDERED: heparin 1,000 units/ml 10ml inj HE ONE ×2 (08:00)
[2019-05-30] MEDS: heparin, porcine 5000 units/ml vial SQ SCH ×2 (08:00→20:37)
[2019-05-30] MEDS: methylnaltrexone br 12mg/0.6ml inj***SubQ only SQ SCH (09:27)
[2019-05-30] MEDS: pantoprazole 40 MG vial IV SCH (09:27)
[2019-05-30] MEDS: fluconazole-Diflucan 200mg/NS 100 ML IV SCH (09:27)
[2019-05-30] MEDS: cefepime 1GM in D5W 50mL IVPB IV SCH (09:27)
[2019-05-30] MEDS: clopidogrel 75mg tablet PO SCH (09:29)
[2019-05-30] MEDS: docusate sod 100mg capsule PO SCH ×2 (09:30→20:00)
[2019-05-30] MEDS: lactobacillus rhamnosus 10,000 MMU CELLS/CAPSULE PO SCH ×2 (09:30→20:24)
[2019-05-30] MEDS: aspirin 81mg tab.chew PO SCH (09:30)
[2019-05-30] MEDS ORDERED: OLANZapine **IM** 10 mg inj. IM ONE (11:10)
--- NOTE | 2019-05-30 11:27 | NUR ---
F/u: Pt refusing all meals/meals and care per RN today. Pending CM d/w pt regarding care and code status given prolonged hx non-compliance. To receive zyprexa IM today hopefully to help garry per . Still not appropriate for DM ed at this time; ed deferred. Addendum: 05/30/19 at [address] Amended: Links added.
[2019-05-30] MEDS: VANCOmycin 1250MG/NS 250ml Bag 250 ML IV SCH (12:46)
[2019-05-30] MEDS: normal saline 1000ml 1,000 ML IV SCH (16:24)
[2019-05-30] MEDS: insulin glargine (Lantus) pen - multi-dose SQ SCH (20:37)
[2019-05-31] VITALS (24 sets, daily range): BP systolic 86–113; BP diastolic 45–67
[2019-05-31] MEDS: methylPREDNISolone sod succ/PF 40mg inj. IV SCH ×4 (02:10→20:12)
[2019-05-31] MEDS: metoclopramide 5 mg/ml inj IV SCH ×4 (02:10→20:12)
[2019-05-31] MEDS: insulin regular, human vial - multi-dose SQ SCH (02:17)
[2019-05-31 02:56] LABS: PARTIAL THROMBOPLASTIN TIME 35 SECONDS (22-32)
[2019-05-31 02:57] LABS: BASOPHILS % (AUTO) 0.2 % (0-1); EOSINOPHILS % (AUTO) 0 % (0-6); HEMATOCRIT 24.3 % (42.0-52.0); HEMOGLOBIN 7.9 g/dl (14.0-17.9); LYMPHOCYTES # (AUTO) 0.3 X10'3 (1.1-4.8); LYMPHOCYTES % (AUTO) 1.4 % (21-51); MEAN CORPUSCULAR HEMOGLOBIN 31.4 PG (27.0-31.0); MEAN CORPUSCULAR HGB CONC 32.5 g/dL (33.0-36.5); MEAN CORPUSCULAR VOLUME 96.5 FL (78-98); MEAN PLATELET VOLUME 9.2 FL (7.4-10.4); MONOCYTES # (AUTO) 0.7 X10'3 (0-0.9); MONOCYTES % (AUTO) 3.8 % (2-12); NEUTROPHILS # (AUTO) 17.2 X10'3 (1.8-7.7); NEUTROPHILS % (AUTO) 94.6 % (42-75); PLATELET COUNT 63 X10'3 (140-440); RED BLOOD COUNT 2.52 X10'6 (4.70-6.10); RED CELL DISTRIBUTION WIDTH 22.6 % (11.5-14.5); WHITE BLOOD COUNT 18.2 X10'3 (4.5-11.0)
[2019-05-31 03:02] LABS: ALANINE AMINOTRANSFERASE 244 U/L (12-78); ALBUMIN 3.5 G/DL (3.4-5.0); ALKALINE PHOSPHATASE 118 IU/L (46-116); ANION GAP 12 (8-16); ASPARTATE AMINO TRANSFERASE 211 U/L (10-37); BLOOD UREA NITROGEN 91 MG/DL (7-18); BUN/CREATININE RATIO 21.4 (5.4-32.0); CALCIUM 7.5 MG/DL (8.5-10.1); CHLORIDE 101 MMOL/L (99-107); CREATININE 4.25 MG/DL (0.60-1.10); GLUCOSE 206 MG/DL (70-104); MAGNESIUM 2.4 MG/DL (1.5-2.4); SODIUM 135 MMOL/L (135-145); TOTAL CARBON DIOXIDE 22.4 MMOL/L (24-32); eGFR 14 ML/MIN
[2019-05-31 03:07] LABS: ALBUMIN/GLOBULIN RATIO 1.5 (1.1-1.5); PHOSPHORUS 6.7 MG/DL (2.3-4.5); TOTAL PROTEIN 5.9 G/DL (6.4-8.2)
[2019-05-31] MEDS: ipratropium/albuterol 3ml nebule NEB SCH ×6 (03:08→23:23)
[2019-05-31 03:10] LABS: POTASSIUM 6.2 MMOL/L (3.5-5.1)
[2019-05-31 03:53] LABS: PLATELET ESTIMATE DECREASED
[2019-05-31 03:54] LABS: ANISOCYTOSIS 3+; BURR CELLS 1+; SCHISTOCYTES FEW
--- NOTE | 2019-05-31 05:52 | NUR ---
Patient continues to ask for more water, educated patient on fluid overloading, including difficulty breathing patient stated "its my body". Asked patient if he stops breathing does he want to be put on a ventilator, patient shook head no and verbally stated "no". Asked patient if his heart stops does he want us do chest compressions and medications, again patient shook head no and verbally stated "no". Asked patient if he understood what Full code means, he stated "yes", when asked if he wanted to be a full code shook head no and verbally stated "No". At this time patient is alert and orientated to self, time, place and situation. Above conversation was informed to Lacy Lei NP. pharmacy services representative consult regarding code status is ordered.
--- NOTE | 2019-05-31 06:30 | NUR ---
Patient in room ICU 2038. I have received report from Martita MORALES and had the opportunity to ask questions and assume patient care.
--- NOTE | 2019-05-31 06:31 | NUR ---
Problems reprioritized. Patient report given, questions answered & plan of care reviewed with Karri MORALES.
[2019-05-31] MEDS: carVEDilol 3.125mg tablet PO SCH ×2 (07:13→20:00)
[2019-05-31] MEDS ORDERED: normal saline 1000ml 250 ML IV PRN (08:00)
[2019-05-31] MEDS ORDERED: epoetin 20,000 units/ml inj IV ONE (08:00)
[2019-05-31] MEDS ORDERED: heparin 1,000 units/ml 10ml inj HE ONE ×2 (08:00)
[2019-05-31] MEDS ORDERED: albumin (human) 25% 100ml IV 100 ML IV PRN (08:00)
[2019-05-31] MEDS: heparin, porcine 5000 units/ml vial SQ SCH ×2 (08:00→20:00)
[2019-05-31] MEDS: lactobacillus rhamnosus 10,000 MMU CELLS/CAPSULE PO SCH ×2 (08:23→20:12)
[2019-05-31] MEDS: aspirin 81mg tab.chew PO SCH (08:23)
[2019-05-31] MEDS: clopidogrel 75mg tablet PO SCH (08:23)
[2019-05-31] MEDS: midodrine 5mg tablet PO SCH ×2 (08:23→17:10)
[2019-05-31] MEDS: docusate sod 100mg capsule PO SCH ×2 (08:25→20:12)
[2019-05-31] MEDS: pantoprazole 40 MG vial IV SCH (08:28)
[2019-05-31] MEDS: olanzapine 10mg tablet PO SCH (10:43)
[2019-05-31 13:50] LABS: ABG BASE EXCESS -0.6 mmol/L (-2.0-3.0); ABG HCO3 22.7 mmol/L (22.0-26.0); ABG OXYGEN SATURATION 98.2 % (95-98); ABG PCO2 (T) 31.5 mmHg (35.0-45.0); ABG PH (T) 7.475 (7.350-7.450); ABG PO2 (T) 117.2 mmHg (83-108); ALLEN'S TEST Positive; FCOHb 0.5 % (0.5-1.5); FLOW 2 L/min; FMetHb 0.2 % (0.3-1.12); FO2Hb 97.5 % (94-100); TOTAL HEMOGLOBIN 8.6 G/dl (14.0-17.9)
--- NOTE | 2019-05-31 18:33 | NUR ---
Problems reprioritized. Patient report given, questions answered & plan of care reviewed with Anna MORALES.
--- NOTE | 2019-05-31 18:35 | NUR ---
Patient in room ICU 2038. I have received report from Karri MORALES and had the opportunity to ask questions and assume patient care. Patient resting in bed, offers no complaints. Vitals WNL at this time, BP stable with no vasoactive medications infusing at this time. Will continue to monitor patient closely.
[2019-05-31] MEDS: insulin glargine (Lantus) pen - multi-dose SQ SCH (21:00)
[2019-06-01] VITALS (17 sets, daily range): BP systolic 89–154; BP diastolic 49–90
[2019-06-01] MEDS: midodrine 5mg tablet PO SCH ×3 (00:27→15:04)
[2019-06-01] MEDS: metoclopramide 5 mg/ml inj IV SCH ×3 (02:37→14:21)
[2019-06-01] MEDS: methylPREDNISolone sod succ/PF 40mg inj. IV SCH ×3 (02:38→14:21)
[2019-06-01] MEDS: ipratropium/albuterol 3ml nebule NEB SCH ×4 (03:00→15:00)
[2019-06-01 03:18] LABS: BASOPHILS # (AUTO) 0.1 X10'3 (0-0.2); BASOPHILS % (AUTO) 0.3 % (0-1); EOSINOPHILS % (AUTO) 0 % (0-6); HEMATOCRIT 23.5 % (42.0-52.0); HEMOGLOBIN 7.7 g/dl (14.0-17.9); LYMPHOCYTES # (AUTO) 0.2 X10'3 (1.1-4.8); LYMPHOCYTES % (AUTO) 1.2 % (21-51); MEAN CORPUSCULAR HEMOGLOBIN 31.6 PG (27.0-31.0); MEAN CORPUSCULAR HGB CONC 32.9 g/dL (33.0-36.5); MEAN CORPUSCULAR VOLUME 96.3 FL (78-98); MEAN PLATELET VOLUME 9.2 FL (7.4-10.4); MONOCYTES # (AUTO) 0.5 X10'3 (0-0.9); MONOCYTES % (AUTO) 3.4 % (2-12); NEUTROPHILS # (AUTO) 14.7 X10'3 (1.8-7.7); NEUTROPHILS % (AUTO) 95.1 % (42-75); PLATELET COUNT 56 X10'3 (140-440); RED BLOOD COUNT 2.44 X10'6 (4.70-6.10); RED CELL DISTRIBUTION WIDTH 24.2 % (11.5-14.5); WHITE BLOOD COUNT 15.5 X10'3 (4.5-11.0)
[2019-06-01 03:35] LABS: ALANINE AMINOTRANSFERASE 251 U/L (12-78); ALBUMIN 3.5 G/DL (3.4-5.0); ALKALINE PHOSPHATASE 113 IU/L (46-116); ANION GAP 18 (8-16); ASPARTATE AMINO TRANSFERASE 210 U/L (10-37); BILIRUBIN,TOTAL 6.6 MG/DL (0.1-1.0); BLOOD UREA NITROGEN 67 MG/DL (7-18); BUN/CREATININE RATIO 19.3 (5.4-32.0); CALCIUM 7.4 MG/DL (8.5-10.1); CHLORIDE 99 MMOL/L (99-107); CREATININE 3.47 MG/DL (0.60-1.10); GLUCOSE 210 MG/DL (70-104); MAGNESIUM 2.3 MG/DL (1.5-2.4); SODIUM 136 MMOL/L (135-145); TOTAL CARBON DIOXIDE 19.5 MMOL/L (24-32); eGFR 17 ML/MIN
[2019-06-01 03:55] LABS: PHOSPHORUS 5.9 MG/DL (2.3-4.5); POTASSIUM 5.3 MMOL/L (3.5-5.1)
[2019-06-01 03:56] LABS: ALBUMIN/GLOBULIN RATIO 1.5 (1.1-1.5); TOTAL PROTEIN 5.9 G/DL (6.4-8.2)
[2019-06-01 03:57] LABS: ANISOCYTOSIS 3+; BURR CELLS 1+; PLATELET ESTIMATE DECREASED; POLYCHROMASIA 2+; SCHISTOCYTES FEW
[2019-06-01 04:07] LABS: PARTIAL THROMBOPLASTIN TIME 35 SECONDS (22-32)
--- NOTE | 2019-06-01 06:00 | NUR ---
Patient in room ICU 2038. I have received report from ANDREW Ashby and had the opportunity to ask questions and assume patient care.
--- NOTE | 2019-06-01 06:33 | NUR ---
Problems reprioritized. Patient report given, questions answered & plan of care reviewed with Daisy MORALES.
[2019-06-01] MEDS: methylnaltrexone br 12mg/0.6ml inj***SubQ only SQ SCH (08:00)
[2019-06-01] MEDS: heparin, porcine 5000 units/ml vial SQ SCH (08:00)
[2019-06-01] MEDS: insulin Lispro (HumaLOG) vial - multi-dose SQ SCH ×2 (09:02→14:21)
[2019-06-01] MEDS: pantoprazole 40 MG vial IV SCH (09:43)
[2019-06-01] MEDS: docusate sod 100mg capsule PO SCH (09:49)
[2019-06-01] MEDS: lactobacillus rhamnosus 10,000 MMU CELLS/CAPSULE PO SCH (09:49)
[2019-06-01] MEDS: aspirin 81mg tab.chew PO SCH (09:49)
[2019-06-01] MEDS: carVEDilol 3.125mg tablet PO SCH (09:49)
[2019-06-01] MEDS: olanzapine 10mg tablet PO SCH (09:50)
[2019-06-01] MEDS: clopidogrel 75mg tablet PO SCH (09:50)
--- NOTE | 2019-06-01 09:52 | NUR ---
RN held Sub Q heparin due to low plt count of 56.
--- NOTE | 2019-06-01 11:00 | NUR ---
Dr. Calvo visited pt at bedside, RN showed provider pt's bilateral feet (dusk color due to being on levo drip for prolonged period of time). No order received.
--- NOTE | 2019-06-01 14:51 | NUR ---
Gave report to Davonte MORALES at [facility], all questions answered.
--- NOTE | 2019-06-01 15:46 | NUR ---
PRESSURE ULCER EDUCATION: DEFINITION: A pressure ulcer is an area of skin that breaks down when you stay in one position too long. The constant pressure against the skin reduces the blood flow to that area and the affected tissue dies. CAUSES: "Being bedridden or in a wheelchair "Fragile skin "Having a chronic condition, such as diabetes or vascular disease "Inability to move certain parts of your body without assistance "Older age "Incontinence of urine or stool SYMPTOMS: "A reddened area that DOES NOT turn white when pressed on - this can be the beginning of a pressure ulcer "A blister, deep sore or a crater - these can be advanced pressure ulcers FIRST AID: "Relieve the pressure on this area "Keep the area clean and dry "Call your primary doctor if you see any of the above symptoms "DO NOT massage the area "DO NOT use a donut shaped or ring shaped pillow- these actually interfere with the blood flow and cause complications PREVENTION: "Check for pressure ulcers everyday "Change position at least every two hours to relieve pressure "Use items that help relieve pressure- pillows, sheepskin, foam padding, and powders. "Keep skin clean and dry "Eat healthy well balanced meals "Exercise daily IF YOU SEE ANY OF THESE SYMPTOMS WHILE IN THE HOSPITAL - TELL YOUR NURSE IMMEDIATELY. IF YOU SEE ANY OF THESE SYMPTOMS WHILE AT HOME OR HAVE ANY QUESTIONS OR CONCERNS ABOUT PRESSURE ULCERS - CALL YOUR PRIMARY DOCTOR IMMEDIATELY. Addendum: 06/01/19 at 1546 by Cassi Butler RN Amended: Links added.
[2019-06-01] MEDS: normal saline 1000ml 1,000 ML IV SCH (16:15)
--- NOTE | 2019-06-01 16:47 | NUR ---
Valuables and belongings are with patient in bed. Black wallet, glasses, dentures, watch, keys, clothes and a pair of boots.
--- NOTE | 2019-06-01 17:20 | NUR ---
Pt was picked up by transport at 1720 via [employer]. No noted distress.
[2019-06-02 14:53] LABS: HBSAG SCREEN Negative (Negative)
--- NOTE | 2019-06-12 13:30 | NUR ---
Duplicate charges 05/31 for dialysis. Please disregard second entry. Addendum: 06/12/19 at 1349 by Estrella Gabriel RN Amended: Links added.
--- NOTE | 2019-06-12 13:51 | NUR ---
Late entry for dialysis CRRT for 05/26/19 added 06/12/19 Addendum: 06/12/19 at 1352 by Estrella Gabriel RN Amended: Links added.
== END 2019-06-01 17:25 | DRG 270 ==
LOC: ER 15:55 → ED HOLD 16:57 → ICU 2S 20:19
PROVIDERS: ADMIT Internal Medicine
PROC: 027034Z Dilation of Coronary Artery, One Artery with Drug-eluting Intraluminal Device, Percutaneous Approach (ICD-10-PCS; principal; 2019-05-16)
PROC: 5A1955Z Respiratory Ventilation, Greater than 96 Consecutive Hours (ICD-10-PCS; 2019-05-16)
PROC: 5A02210 Assistance with Cardiac Output using Balloon Pump, Continuous (ICD-10-PCS; 2019-05-16)
PROC: 0BH17EZ Insertion of Endotracheal Airway into Trachea, Via Natural or Artificial Opening (ICD-10-PCS; 2019-05-16)
PROC: 4A023N8 Measurement of Cardiac Sampling and Pressure, Bilateral, Percutaneous Approach (ICD-10-PCS; 2019-05-16)
PROC: B2111ZZ Fluoroscopy of Multiple Coronary Arteries using Low Osmolar Contrast (ICD-10-PCS; 2019-05-16)
PROC: B2151ZZ Fluoroscopy of Left Heart using Low Osmolar Contrast (ICD-10-PCS; 2019-05-16)
PROC: 5A12012 Performance of Cardiac Output, Single, Manual (ICD-10-PCS; 2019-05-16)
PROC: 06HY33Z Insertion of Infusion Device into Lower Vein, Percutaneous Approach (ICD-10-PCS; 2019-05-17)
PROC: 5A1D90Z Performance of Urinary Filtration, Continuous, Greater than 18 hours Per Day (ICD-10-PCS; 2019-05-21)
PROC: 06HY33Z Insertion of Infusion Device into Lower Vein, Percutaneous Approach (ICD-10-PCS; 2019-05-21)
PROC: 5A1D90Z Performance of Urinary Filtration, Continuous, Greater than 18 hours Per Day (ICD-10-PCS; 2019-05-22)
PROC: 5A1D90Z Performance of Urinary Filtration, Continuous, Greater than 18 hours Per Day (ICD-10-PCS; 2019-05-23)
PROC: 30233N1 Transfusion of Nonautologous Red Blood Cells into Peripheral Vein, Percutaneous Approach (ICD-10-PCS; 2019-05-24)
PROC: 5A1D90Z Performance of Urinary Filtration, Continuous, Greater than 18 hours Per Day (ICD-10-PCS; 2019-05-24)
PROC: 5A1D90Z Performance of Urinary Filtration, Continuous, Greater than 18 hours Per Day (ICD-10-PCS; 2019-05-25)
PROC: 5A1D90Z Performance of Urinary Filtration, Continuous, Greater than 18 hours Per Day (ICD-10-PCS; 2019-05-26)
PROC: 0JH63XZ Insertion of Tunneled Vascular Access Device into Chest Subcutaneous Tissue and Fascia, Percutaneous Approach (ICD-10-PCS; 2019-05-26)
PROC: 02H633Z Insertion of Infusion Device into Right Atrium, Percutaneous Approach (ICD-10-PCS; 2019-05-26)
PROC: B548ZZA Ultrasonography of Superior Vena Cava, Guidance (ICD-10-PCS; 2019-05-26)
PROC: 5A1D90Z Performance of Urinary Filtration, Continuous, Greater than 18 hours Per Day (ICD-10-PCS; 2019-05-27)
PROC: CF141ZZ Planar Nuclear Medicine Imaging of Gallbladder using Technetium 99m (Tc-99m) (ICD-10-PCS; 2019-05-28)
PROC: 5A1D90Z Performance of Urinary Filtration, Continuous, Greater than 18 hours Per Day (ICD-10-PCS; 2019-05-28)
PROC: 5A1D70Z Performance of Urinary Filtration, Intermittent, Less than 6 Hours Per Day (ICD-10-PCS; 2019-05-31)
DX: I21.3 ST elevation (STEMI) myocardial infarction of unspecified site (principal); J96.00 Acute respiratory failure, unspecified whether with hypoxia or hypercapnia; I46.9 Cardiac arrest, cause unspecified; N17.0 Acute kidney failure with tubular necrosis; I97.710 Intraoperative cardiac arrest during cardiac surgery; I13.0 Hypertensive heart and chronic kidney disease with heart failure and stage 1 through stage 4 chronic kidney disease, or unspecified chronic kidney disease; I42.0 Dilated cardiomyopathy; J98.11 Atelectasis; Y84.0 Cardiac catheterization as the cause of abnormal reaction of the patient, or of later complication, without mention of misadventure at the time of the procedure; Y71.1 Therapeutic (nonsurgical) and rehabilitative cardiovascular devices associated with adverse incidents; Y92.234 Operating room of hospital as the place of occurrence of the external cause; D64.9 Anemia, unspecified; E11.22 Type 2 diabetes mellitus with diabetic chronic kidney disease; E66.9 Obesity, unspecified; E78.5 Hyperlipidemia, unspecified; I25.10 Atherosclerotic heart disease of native coronary artery without angina pectoris; I25.5 Ischemic cardiomyopathy; I50.9 Heart failure, unspecified; N18.3 Chronic kidney disease, stage 3 (moderate); M19.90 Unspecified osteoarthritis, unspecified site; K21.9 Gastro-esophageal reflux disease without esophagitis; Z66 Do not resuscitate; R94.5 Abnormal results of liver function studies; Z79.02 Long term (current) use of antithrombotics/antiplatelets; Z79.82 Long term (current) use of aspirin; Z79.899 Other long term (current) drug therapy; Z63.8 Other specified problems related to primary support group; Z82.3 Family history of stroke; Z95.5 Presence of coronary angioplasty implant and graft; Z99.2 Dependence on renal dialysis; Z79.84 Long term (current) use of oral hypoglycemic drugs; Z68.36 Body mass index [BMI] 36.0-36.9, adult; Z88.5 Allergy status to narcotic agent
CPT/HCPCS: 33967; 36558; 36569; 92950; 93306; 93460; 96365; 99285; C9606; 36415; 36600; 70450; 71045; 76700; 76937; 77001; 78227; 80048; 80053; 80061; 80069; 80202; 81001; 82140; 82330; 82550; 82553; 82803; 82810; 82948; 83036; 83605; 83735; 83880; 84100; 84134; 84145; 84478; 84484; 85018; 85025; 85347; 85610; 85730; 86885; 86900; 86901; 86920; 87040; 87070; 87077; 87081; 87088; 87340; 90732; 90935; 92508; 92616; 93005; 93308; 94002; 94003; 94640; 94668; 94760; 97110; 97161; 97530; 99152; 99153; A4620; A6258; A9270; A9537; C1725; C1750; C1769; C1874; C1894; C9113; E1594; G0257; G0378; J0282; J0461; J0692; J1250; J1265; J1450; J1644; J1815; J1940; J2001; J2212; J2250; J2704; J2765; J2805; J2920; J2930; J3010; J3370; J3475; J3480; J3490; J7030; J7050; P9016; P9047; Q4081; Q9967